=== PATIENT | female | born 1935 | race Caucasian/White ===

== ENCOUNTER → 2016-10-27 | Outpatient (CLI) | payer MEDICARE ==
--- NOTE | 2016-10-27 09:38 | US ---
EXAMINATION TYPE: US carotid duplex BILAT DATE OF EXAM: 10/27/2016 9:26 AM COMPARISON: NONE CLINICAL HISTORY: I65.23 STENOSIS OF CAROTID ARTERY. EXAM MEASUREMENTS: RIGHT: Peak Systolic Velocity (PSV) cm/sec ----- Right CCA: 68.2 ----- Right ICA: 87.2 ----- Right ECA: 79.4 ICA/CCA ratio: 1.3 RIGHT: End Diastole cm/sec ----- Right CCA: 24.1 ----- Right ICA: 32.8 ----- Right ECA: 14.1 LEFT: Peak Systolic Velocity (PSV) cm/sec ----- Left CCA: 54.7 ----- Left ICA: 84.2 ----- Left ECA: 104.3 ICA/CCA ratio: 1.5 LEFT: End Diastole cm/sec ----- Left CCA: 20.6 ----- Left ICA: 19.3 ----- Left ECA: 13.7 VERTEBRALS (direction of flow): Right Vertebral: Antegrade Left Vertebral: Antegrade TECHNOLOGIST IMPRESSION: Mild to moderate plaque with no significant velocity elevations Montanez scale images show mild eccentric hyperechoic shadowing plaque at right carotid bulb. There is le ss pronounced plaque at left carotid bulb. Velocity measurements and ratios remain within normal limi ts in visualized portion of both internal carotid arteries. IMPRESSION: No hemodynamically significant stenosis is seen in either internal carotid artery.
== END | disposition home or self-care (01) ==
LOC: RADUSWWP 09:03
PROVIDERS: ATTEND Internal Medicine
DX: I65.23 Occlusion and stenosis of bilateral carotid arteries (principal); I34.0 Nonrheumatic mitral (valve) insufficiency
CPT/HCPCS: 93880

== ENCOUNTER → 2016-11-17 | Outpatient (CLI) | payer MEDICARE ==
--- NOTE | 2016-11-17 10:23 | BD ---
EXAMINATION TYPE: MG DEXA axial skeleton. DATE OF EXAM: 11/17/2016 10:05 AM COMPARISON: NONE CLINICAL HISTORY: Height: 63.5 IN Weight: 160 LBS FRAX RISK QUESTIONS: Alcohol (3 or more units per day): NO Family History (Parent hip fracture): NO Glucocorticoids (More than 3mos): NO (Ex: prednisone, prednisolone, methylprednisolone, dexamethasone, and hydrocortisone). History of Fracture in Adulthood: YES Secondary Osteoporosis: 1. Type 1 Diabetes: NO 2. Hyperthyroidism: NO 3. Menopause before 45: NO AGE 48 4. Malnutrition: NO 5. Chronic liver disease: NO Rheumatoid Arthritis: NO Current Tobacco Use: NO RISK FACTORS HISTORY OF: Hip Fracture (Right): YES When: AGE 68 Surgery to Hip(right): YES When: AGE 68 Other Fractures since Age 48: YES When: RT HIP AGE 68 Active: MODERATE Diet low in dairy products/other sources of calcium: YES Postmenopausal woman: AGE 48 Lost more than 2 inches in height since high school: YES APPROX 4" MEDICATIONS: Additional Medications: CALCIUM, VIT D, MAGNESIUM, EYE DROPS, BLOOD PRESSURE MEDS, PAIN PILL,GOUT MED EXAM MEASUREMENTS: Bone mineral densitometry was performed using the Vocab System. Bone mineral density as measured about the Lumbar spine is: ----- L1-L4(G/cm2): 1.185 T Score Values are as follows: ----- L2: -1.8 ----- L3: 2.9 ----- L4: 2.7 ----- L1-L4: 0.0 Bone mineral density BASELINE PT HAD RT HIP FX AND SURGERY AGE 68 Bone mineral density about the L hip (g/cm2): 0.609 T Score values are as follows: -----L Neck: -3.1 -----L Intertrochanter: -3.0 Bone mineral density BASELINE IMPRESSION: Osteoporosis (T Score less than -2.5) as noted by T Score values at the There is increased fracture risk and therapy is usually indicated based on age. Re-Screen 1-2 years. NOTE: T-SCORE=SD OF THE YOUNG ADULT MEAN.
--- NOTE | 2016-11-18 14:38 | MM ---
Reason for exam: screening (asymptomatic). History: Patient is postmenopausal. Physical Findings: A clinical breast exam by your physician is recommended on an annual basis and results should be correlated with mammographic findings. MG Screening Mammo w CAD Bilateral CC and MLO view(s) were taken. XCCL view(s) were taken of the left breast. The breast tissue is almost entirely fat. Finding: There are typically benign diffuse/scattered calcifications. There is no discrete abnormality. ASSESSMENT: Benign, BI-RAD 2 RECOMMENDATION: Routine screening mammogram of both breasts in 1 year.
== END | disposition home or self-care (01) ==
LOC: RADMAMWWP 09:12
PROVIDERS: ATTEND Internal Medicine
DX: Z12.31 Encounter for screening mammogram for malignant neoplasm of breast (principal); M81.0 Age-related osteoporosis without current pathological fracture
CPT/HCPCS: 77080; G0202

== ENCOUNTER → 2017-05-11 | Outpatient (CLI) | payer MEDICARE ==
--- NOTE | 2017-05-11 10:59 | ECHOF ---
Referral Reason:I27.2 pulmonary htn MEASUREMENTS -------- HEIGHT: 162.6 cm WEIGHT: 72.6 kg BP: 130/66 IVSd: 1.2 cm (0.6 - 1.1) LVIDd: 3.5 cm (3.9 - 5.3) LVPWd: 1.1 cm (0.6 - 1.1) IVSs: 1.6 cm LVIDs: 2.3 cm LVPWs: 1.8 cm Ao Diam: 3.6 cm (2.0 - 3.7) AV Cusp: 2.6 cm (1.5 - 2.6) LA Diam: 3.0 cm (2.7 - 3.8) MV EXCURSION: 21.518 mm (> 18.000) MV EF SLOPE: 94 mm/s (70 - 150) EPSS: 2.1 cm MV E Jt: 0.81 m/s MV DecT: 239 ms MV A Jt: 0.93 m/s MV E/A Ratio: 0.87 RAP: 5.00 mmHg RVSP: 32.13 mmHg FINDINGS -------- Sinus rhythm. This was a technically good study. There is borderline concentric left ventricular hypertrophy. Overall left ventricular systolic function is normal with, an EF between 55 - 60 %. The right ventricle is normal in size and function. The left atrium is normal in size. The right atrium is normal in size. Aortic valve is trileaflet and is mildly thickened. The mitral valve leaflets are mildly thickened. Mild mitral regurgitation is present. Mild tricuspid regurgitation present. The right ventricular systolic pressure, as measured by Doppler, is 32.13mmHg. Pulmonic valve appears structurally normal. CONCLUSIONS -------- 1. Sinus rhythm. 2. Mild mitral regurgitation is present. 3. Mild tricuspid regurgitation present. 4. The right ventricular systolic pressure, as measured by Doppler, is 32.13mmHg. 5. Pulmonic valve appears structurally normal. 6. This was a technically good study. 7. There is borderline concentric left ventricular hypertrophy. 8. Overall left ventricular systolic function is normal with, an EF between 55 - 60 %. 9. The right ventricle is normal in size and function. 10. The left atrium is normal in size. 11. The right atrium is normal in size. 12. Aortic valve is trileaflet and is mildly thickened. 13. The mitral valve leaflets are mildly thickened. ASSEMBLER 1ST SHIFT: Olinda Hinkle RDCS
== END | disposition home or self-care (01) ==
LOC: RADECHMAIN 08:33
PROVIDERS: ATTEND Internal Medicine
DX: I08.1 Rheumatic disorders of both mitral and tricuspid valves (principal); I27.2 Other secondary pulmonary hypertension
CPT/HCPCS: 93306

== ENCOUNTER 2018-04-06 19:30 | Inpatient (IN) | payer MEDICARE ==
[2018-04-06] MEDS ORDERED: PANTOPRAZOLE 40 MG/10 ML VIAL IVP STA (20:06)
--- NOTE | 2018-04-06 20:09 | ED ---
General Adult HPI - General Chief complaint: GI Bleed Stated complaint: GI Bleed Source: patient Mode of arrival: EMS Limitations: no limitations - History of Present Illness Initial comments: Dictation was produced using [employer] dictation software. please excuse any grammatical, word or spelling errors. Chief Complaint: 82-year-old female past medical history of glaucoma, gout, anemia presents with bright red blood per rectum 1 day. History of Present Illness: Patient states that earlier today she was having a bowel movement she stood up and noted bright red blood per rectum. She states that there was an exquisite amount of bright red blood in the toilet. Patient was concerned and came to the emergency department. Patient denies any abdominal pain. No nausea vomiting. No lightheadedness. Patient otherwise feels well. Denies any history of GI bleed. The ROS documented in this emergency department record has been reviewed and confirmed by me. Those systems with pertinent positive or negative responses have been documented in the HPI. All other systems are other negative and/or noncontributory. - Related Data Home Medications Medication Instructions Recorded Confirmed Allopurinol [Zyloprim] 100 mg PO DAILY 04/06/18 04/07/18 Carvedilol [Coreg] 12.5 mg PO BID 04/06/18 04/07/18 Losartan/Hydrochlorothiazide 1 tab PO DAILY 04/06/18 04/07/18 [Losartan-Hctz 100-12.5 mg Tab] Norman/D3/Mag11/Zinc/Logistics System Engineer/Son/Bor 1 tab PO DAILY 04/07/18 04/07/18 [Caltrate 600+D Plus Tablet] Calcitriol [Rocaltrol] 0.25 mcg PO DAILY 04/07/18 04/07/18 Dorzolamide/Timolol/Pf [Cosopt Pf 1 drop RIGHT EYE BID 04/07/18 04/07/18 2%/5% Ophth Droperette] Latanoprost Ophth [Xalatan 0.005%] 1 drop BOTH EYES HS 04/07/18 04/07/18 Ranitidine HCl [Zantac] 150 mg PO HS 04/07/18 04/07/18 Allergies Allergy/AdvReac Type Severity Reaction Status Date / Time No Known Allergies Allergy Verified 04/06/18 20:28 Review of Systems ROS Statement: Those systems with pertinent positive or pertinent negative responses have been documented in the HPI. ROS Other: All systems not noted in ROS Statement are negative. Past Medical History Past Medical History: Hypertension Additional Past Medical History / Comment(s): glaucoma, gout, anemia History of Any Multi-Drug Resistant Organisms: None Reported Past Surgical History: Joint Replacement, Orthopedic Surgery Past Psychological History: No Psychological Hx Reported Smoking Status: Former smoker Past Alcohol Use History: None Reported Past Drug Use History: None Reported - Past Family History Father Additional Family Medical History / Comment(s): Father in his 60s Mother Additional Family Medical History / Comment(s): Mother in her 90s from old age. Patient has 1 sister with no major medical problems. Patient does not have any brothers or children. General Exam - General Exam Comments Initial Comments: PHYSICAL EXAM: General Impression: Alert and oriented x3, not in acute distress HEENT: Normocephalic atraumatic, extra-ocular movements intact, pupils equal and reactive to light bilaterally, mucous membranes moist. Cardiovascular: Heart regular rate and rhythm, S1&S2 audible, no murmurs, rubs or gallops Chest: Lungs clear to auscultation bilaterally, no rhonchi, no wheeze, no rales Abdomen: Bowel sounds present, abdomen soft, non-tender, non-distended, no organomegaly Musculoskeletal: Pulses present and equal in all extremities, no peripheral edema Motor: Power 5/5 bilaterally, no focal deficits noted Neurological: CN II-XII grossly intact, no focal motor or sensory deficits noted Skin: Intact with no visualized rashes Psych: Normal affect and mood Rectal exam: Rectal skin tag, still guaiac positive for gross blood. Limitations: no limitations Course Vital Signs 04/06/18 04/06/18 19:32 21:21 Temperature 97.7 F Pulse Rate 86 73 Respiratory 20 20 Rate Blood Pressure 162/72 155/65 O2 Sat by Pulse 98 96 Oximetry Medical Decision Making - Medical Decision Making ED course: 82-year-old female with bright red blood per rectum. Vital signs upon arrival shows hypertension 162/72, rest of vital signs within normal limits.Laboratory evaluation obtained. No leukocytosis. Hemoglobin is 9.8. There findings to suggest macrocytic anemia. Platelet count is 49. Coag panel shows findings within acceptable limits. There is no old labs for comparison. Metabolic panel obtained. Elevated renal markers. Glucose 12. Magnesium is 0.9. Stool occult blood is positive. Struck suspicion for lower GI bleed however there is possibility of this upper GI bleed. Patient given Protonix. Patient not bleeding at the moment. No clear indication for platelet transfusion at this time. Magnesium replaced. Patient be admitted with gastroenterology consult. Patient continued to receive fluid resuscitation and magnesium. EKG Interpretation: A 12 lead EKG was obtained. It was interpreted by myself and attending physician. There is a P wave before every QRS complex. Rate is 75. Rhythm is sinus rhythm, MN interval 156, QRS 72, QTC 410. QT is not prolonged. No ST segment depression or elevation. Overall, this EKG is unremarkable - Lab Data Result diagrams: 04/07/18 07:22 04/07/18 07:22 Lab Results 04/06/18 04/06/18 04/06/18 Range/Units 19:46 19:46 19:46 WBC 4.7 (3.8-10.6) k/uL RBC 2.62 L (3.80-5.40) m/uL Hgb 9.8 L (11.4-16.0) gm/dL Hct 29.1 L (34.0-46.0) % MCV 111.1 H (80.0-100.0) fL MCH 37.2 H (25.0-35.0) pg MCHC 33.5 (31.0-37.0) g/dL RDW 15.2 (11.5-15.5) % Plt Count 49 L* (150-450) k/uL Neutrophils % 60 % Lymphocytes % 32 % Monocytes % 5 % Eosinophils % 1 % Basophils % 0 % Neutrophils # 2.8 (1.3-7.7) k/uL Lymphocytes # 1.5 (1.0-4.8) k/uL Monocytes # 0.2 (0-1.0) k/uL Eosinophils # 0.0 (0-0.7) k/uL Basophils # 0.0 (0-0.2) k/uL Polychromasia Present Macrocytosis Marked PT (9.0-12.0) sec INR (<1.2) APTT (22.0-30.0) sec Sodium (137-145) mmol/L Potassium (3.5-5.1) mmol/L Chloride (98-107) mmol/L Carbon Dioxide (22-30) mmol/L Anion Gap mmol/L BUN (7-17) mg/dL Creatinine (0.52-1.04) mg/dL Est GFR (CKD-EPI)AfAm (>60 ml/min/1.73 sqM) Est GFR (CKD-EPI)NonAf (>60 ml/min/1.73 sqM) Glucose (74-99) mg/dL Calcium (8.4-10.2) mg/dL Magnesium (1.6-2.3) mg/dL Total Bilirubin (0.2-1.3) mg/dL AST (14-36) U/L ALT (9-52) U/L Alkaline Phosphatase (38-126) U/L Total Creatine Kinase 51 (30-135) U/L CK-MB (CK-2) 1.4 (0.0-2.4) ng/mL CK-MB (CK-2) Rel Index 2.7 Troponin I <0.012 (0.000-0.034) ng/mL Total Protein (6.3-8.2) g/dL Albumin (3.5-5.0) g/dL Stool Occult Blood Positive H (Negative) Blood Type Blood Type Recheck Antibody Screen Spec Expiration Date 04/06/18 04/06/18 04/06/18 Range/Units 19:46 19:46 19:46 WBC (3.8-10.6) k/uL RBC (3.80-5.40) m/uL Hgb (11.4-16.0) gm/dL Hct (34.0-46.0) % MCV (80.0-100.0) fL MCH (25.0-35.0) pg MCHC (31.0-37.0) g/dL RDW (11.5-15.5) % Plt Count (150-450) k/uL Neutrophils % % Lymphocytes % % Monocytes % % Eosinophils % % Basophils % % Neutrophils # (1.3-7.7) k/uL Lymphocytes # (1.0-4.8) k/uL Monocytes # (0-1.0) k/uL Eosinophils # (0-0.7) k/uL Basophils # (0-0.2) k/uL Polychromasia Macrocytosis PT 10.4 (9.0-12.0) sec INR 1.1 (<1.2) APTT 18.7 L (22.0-30.0) sec Sodium 139 (137-145) mmol/L Potassium 4.0 (3.5-5.1) mmol/L Chloride 106 (98-107) mmol/L Carbon Dioxide 25 (22-30) mmol/L Anion Gap 8 mmol/L BUN 25 H (7-17) mg/dL Creatinine 1.50 H (0.52-1.04) mg/dL Est GFR (CKD-EPI)AfAm 37 (>60 ml/min/1.73 sqM) Est GFR (CKD-EPI)NonAf 32 (>60 ml/min/1.73 sqM) Glucose 102 H (74-99) mg/dL Calcium 9.5 (8.4-10.2) mg/dL Magnesium 0.9 L* (1.6-2.3) mg/dL Total Bilirubin 0.5 (0.2-1.3) mg/dL AST 17 (14-36) U/L ALT 24 (9-52) U/L Alkaline Phosphatase 56 (38-126) U/L Total Creatine Kinase (30-135) U/L CK-MB (CK-2) (0.0-2.4) ng/mL CK-MB (CK-2) Rel Index Troponin I (0.000-0.034) ng/mL Total Protein 6.0 L (6.3-8.2) g/dL Albumin 3.5 (3.5-5.0) g/dL Stool Occult Blood (Negative) Blood Type A Negative Blood Type Recheck No Antibody Screen NEGATIVE Spec Expiration Date 04/09/20182345 Disposition Clinical Impression: GI bleed Disposition: ADMITTED IP TO THIS [facility] Condition: Fair Is patient prescribed a controlled substance at d/c from ED?: No Time of Disposition: 12:30
[2018-04-06 20:28] LABS: Basophils % (A) 0 %; Eosinophils % (A) 1 %; HCT 29.1 % (34.0-46.0); HGB 9.8 gm/dL (11.4-16.0); Lymphocytes # (A) 1.5 k/uL (1.0-4.8); Lymphocytes % (A) 32 %; MCH 37.2 pg (25.0-35.0); MCHC 33.5 g/dL (31.0-37.0); MCV 111.1 fL (80.0-100.0); Macrocytosis Marked; Mean Platelet Volume 10.5; Monocytes # (A) 0.2 k/uL (0-1.0); Monocytes % (A) 5 %; Neutrophils # (A) 2.8 k/uL (1.3-7.7); Neutrophils % (A) 60 %; RBC 2.62 m/uL (3.80-5.40); RDW 15.2 % (11.5-15.5); WBC 4.7 k/uL (3.8-10.6)
[2018-04-06 20:34] LABS: Albumin 3.5 g/dL (3.5-5.0); Calcium 9.5 mg/dL (8.4-10.2); Total Bilirubin 0.5 mg/dL (0.2-1.3)
[2018-04-06 20:44] LABS: Magnesium 0.9 mg/dL (1.6-2.3); Platelet Count 49 k/uL (150-450)
[2018-04-06 20:45] LABS: Polychromasia Present
[2018-04-06 20:50] LABS: Creatine Kinase 51 U/L (30-135)
[2018-04-06 20:51] LABS: INR 1.1 (<1.2); Prothrombin Time 10.4 sec (9.0-12.0)
[2018-04-06 20:54] LABS: Partial Thromboplastin Time 18.7 sec (22.0-30.0)
[2018-04-06 21:02] LABS: Creatine Kinase MB 1.4 ng/mL (0.0-2.4); Troponin I <0.012 ng/mL (0.000-0.034)
[2018-04-06] MEDS: MAGNESIUM SULFATE-D5W PMX 1 GM in DEXTROSE/WATER 1 100ML.BAG IVPB SCH ×2 (21:20→23:27)
[2018-04-06] MEDS ORDERED: NALOXONE 0.4 MG/ML 1 ML VIAL IV PRN (21:23)
--- NOTE | 2018-04-06 21:49 | XR ---
EXAMINATION TYPE: XR abdomen acute w cxr DATE OF EXAM: 04/06/2018 COMPARISON: NONE HISTORY: Abdominal pain. GI bleed. TECHNIQUE: Chest x-ray. Supine and upright abdomen. FINDINGS: Heart is moderately enlarged. There is no heart failure. There is hiatal hernia. Lungs are clear of c onsolidation. There is no sign of intestinal obstruction or pneumoperitoneum. There is lumbar levoscoliosis. Abdomi nal aorta is atheromatous. There is right hip prosthesis. There are are chest leads. IMPRESSION: Nonacute abdomen. Cardiomegaly. No active cardiopulmonary disease.
[2018-04-06] MEDS: CARVEDILOL 12.5 MG TAB PO SCH (23:27)
[2018-04-06] MEDS: DORZOLAMIDE HCL 2% DROPS 10 ML BTL BOTH EYES SCH (23:27)
[2018-04-06] MEDS: SODIUM CHLORIDE 0.9% 1,000 ML IV SCH (23:27)
--- NOTE | 2018-04-07 07:47 | P.CONS ---
History of Present Illness - Reason for Consult Consult date: 04/07/18 Rectal bleeding Requesting physician: Josse Fitzgerald - History of Present Illness 82-year-old female with a past medical history of remote peptic ulcer disease in the 1980s, GI bleed 2006 secondary to perforated duodenal ulcer status post pyloroplasty, anemia B12 deficiency, hypertension, hypertensive cardiovascular disease. Patient presented with painless rectal bleeding that started yesterday. She hasn't been feeling well for over the past week that it was he related. Yesterday she passed one large bowel movement that was bright red burgundy in nature without abdominal pain. Denies coffee-ground hematemesis, melena. Admission hemoglobin 9.8. MCV 111. Platelet 49,000. INR 1.1. BUN 25. Creatinine 1.5. Hemoccult stool positive. No history of thrombocytopenia. No changes in medications. Presently she feels well without abdominal pain. No recurrence of rectal bleeding. Last EGD record was in 2007 no evidence of peptic ulcer disease. Dr. Ba office called last colonoscopy performed 2008 report not available to fax. Review of Systems Constitutional: Denies fever, chills, sweats, weight gain, or loss. HEENT: Negative for migraines, blurred vision or loss, earaches, drainage, tinnitus, oral mucosal lesions, dysphagia, or odynophagia. CARDIAC: Negative for chest pain, arrhythmias, or palpitation. RESPIRATORY: Negative for shortness of breath, hemoptysis, cough, or sputum production. GI: See HPI for pertinent findings. : Negative for hematuria, urgency, frequency, polyuria, or dysuria. GYNc: Denies possibility of . Negative vaginal discharge. MUSCULOSKELETAL: Negative for muscle aches, swelling, arthritis, and arthralgias. NEUROLOGIC: Negative for stroke or TIA. ENDOCRINE: Negative for thyroid problems. SKIN: Negative for rash or itching. PSYCHIATRIC: Negative history for depression and anxiety Past Medical History Past Medical History: Hypertension Additional Past Medical History / Comment(s): glaucoma, gout, anemia History of Any Multi-Drug Resistant Organisms: None Reported Past Surgical History: Joint Replacement, Orthopedic Surgery Past Psychological History: No Psychological Hx Reported Smoking Status: Former smoker Past Alcohol Use History: None Reported Past Drug Use History: None Reported Medications and Allergies Home Medications Medication Instructions Recorded Confirmed Type Allopurinol [Zyloprim] 100 mg PO DAILY 04/06/18 04/07/18 History Carvedilol [Coreg] 12.5 mg PO BID 04/06/18 04/07/18 History Losartan/Hydrochlorothiazide 1 tab PO DAILY 04/06/18 04/07/18 History [Losartan-Hctz 100-12.5 mg Tab] Norman/D3/Mag11/Zinc/Forge Hand/Son/Bor 1 tab PO DAILY 04/07/18 04/07/18 History [Caltrate 600+D Plus Tablet] Calcitriol [Rocaltrol] 0.25 mcg PO DAILY 04/07/18 04/07/18 History Dorzolamide/Timolol/Pf [Cosopt Pf 1 drop RIGHT EYE BID 04/07/18 04/07/18 History 2%/5% Ophth Droperette] Latanoprost Ophth [Xalatan 0.005%] 1 drop BOTH EYES HS 04/07/18 04/07/18 History Ranitidine HCl [Zantac] 150 mg PO HS 04/07/18 04/07/18 History Allergies Allergy/AdvReac Type Severity Reaction Status Date / Time No Known Allergies Allergy Verified 04/06/18 20:28 Physical Exam Vitals: Vital Signs Temp Pulse Pulse Resp BP BP Pulse Ox 04/07/18 06:06 96.4 F L 60 18 119/63 97 04/06/18 23:00 97.7 F 69 17 147/70 100 04/06/18 21:21 73 20 155/65 96 04/06/18 19:32 97.7 F 86 20 162/72 98 Intake and Output 04/06/18 04/07/18 04/07/18 22:59 06:59 14:59 Intake Total 500 Balance 500 Intake: Amount of Fluid Infused ( 500 ml) Other: # Voids 1 Weight 66.088 kg 66.088 kg General appearance: The patient is alert, oriented, in no acute distress. HET: Head is normocephalic and atraumatic. Pupils are equal and reactive. Oropharynx is clear without lesions. Neck: Supple without lymphadenopathy. Trachea midline. Heart: S1 S2. Regular rate and rhythm. Lungs: No crackles or wheezes are heard. Abdomen: Soft, nontender, nondistended with bowel sounds. No peritoneal signs. No palpable organomegaly or masses. Extremities: Normal skin color and turgor. No cyanosis, rash, ulceration, clubbing, or edema. Radial and pedal pulses are 2/4 bilaterally. Neurological: No focal deficits. Strength and sensation are grossly intact. Results CBC & Chem 7: 04/07/18 07:22 04/07/18 07:22 Labs: Abnormal Lab Results - Last 24 Hours (Table) 04/06/18 04/06/18 04/06/18 Range/Units 19:46 19:46 19:46 RBC 2.62 L (3.80-5.40) m/uL Hgb 9.8 L (11.4-16.0) gm/dL Hct 29.1 L (34.0-46.0) % MCV 111.1 H (80.0-100.0) fL MCH 37.2 H (25.0-35.0) pg Plt Count 49 L* (150-450) k/uL APTT (22.0-30.0) sec BUN 25 H (7-17) mg/dL Creatinine 1.50 H (0.52-1.04) mg/dL Glucose 102 H (74-99) mg/dL Magnesium 0.9 L* (1.6-2.3) mg/dL Total Protein 6.0 L (6.3-8.2) g/dL Stool Occult Blood Positive H (Negative) 04/06/18 Range/Units 19:46 RBC (3.80-5.40) m/uL Hgb (11.4-16.0) gm/dL Hct (34.0-46.0) % MCV (80.0-100.0) fL MCH (25.0-35.0) pg Plt Count (150-450) k/uL APTT 18.7 L (22.0-30.0) sec BUN (7-17) mg/dL Creatinine (0.52-1.04) mg/dL Glucose (74-99) mg/dL Magnesium (1.6-2.3) mg/dL Total Protein (6.3-8.2) g/dL Stool Occult Blood (Negative) Assessment and Plan (1) Rectal bleeding Narrative/Plan: Possible colonic diverticular in nature exacerbated by thrombocytopenia. Upper GI source cannot be entirely excluded patient is without epigastric pain hematemesis or melena. History of underlying perforated bleeding peptic duodenal ulcer disease in 2006. Current Visit: Yes Status: Acute Code(s): K62.5 - HEMORRHAGE OF ANUS AND RECTUM SNOMED Code(s): 44122081 (2) Thrombocytopenia Narrative/Plan: Etiology unclear Current Visit: Yes Status: Acute Code(s): D69.6 - THROMBOCYTOPENIA, UNSPECIFIED SNOMED Code(s): 153529955 (3) Anemia Narrative/Plan: Macrocytic anemia. History of B12 deficiency anemia component of acute blood loss Current Visit: Yes Status: Acute Code(s): D64.9 - ANEMIA, UNSPECIFIED SNOMED Code(s): 560596753 Plan: 1. Will allow clear liquids this morning. CBC monitoring; await morning result reevaluate platelet count. Protonix 40 mg daily. Inpatient endoscopy discussed EGD/colonoscopy scheduled tomorrow. Dr. Sharp prefers platelet count to be greater than 50,000 before proceeding with endoscopic exams especially if biopsies and/or polypectomies need to be performed therefore will transfuse platelets tomorrow morning prior to procedures. Will follow closely with you. Thank you for this kind referral and the opportunity to participate in the care of your patient. This consultation was discussed with Dr. Sharp. The impression and plan of care have been directed as dictated.
[2018-04-07 08:30] LABS: Albumin 3.1 g/dL (3.5-5.0); Calcium 9.1 mg/dL (8.4-10.2); Total Bilirubin 0.6 mg/dL (0.2-1.3); Total Protein 5.5 g/dL (6.3-8.2)
[2018-04-07] MEDS: PANTOPRAZOLE 40 MG/10 ML VIAL IVP SCH ×2 (08:45→21:25)
[2018-04-07] MEDS: CARVEDILOL 12.5 MG TAB PO SCH ×2 (08:46→17:38)
[2018-04-07] MEDS: ALLOPURINOL 100 MG TAB PO SCH (08:46)
[2018-04-07] MEDS: DORZOLAMIDE HCL 2% DROPS 10 ML BTL BOTH EYES SCH ×2 (08:46→21:25)
[2018-04-07] MEDS: HYDROCHLOROTHIAZIDE 12.5 MG CAP PO SCH (08:46)
[2018-04-07] MEDS: TIMOLOL 0.5% OPHTH DROPS 5 ML BTL BOTH EYES SCH (08:47)
[2018-04-07] MEDS: LOSARTAN 50 MG TAB PO SCH (08:47)
[2018-04-07 08:59] LABS: Basophils % (A) 0 %; Eosinophils % (A) 1 %; HCT 27.1 % (34.0-46.0); HGB 8.8 gm/dL (11.4-16.0); Lymphocytes # (A) 1.5 k/uL (1.0-4.8); Lymphocytes % (A) 36 %; MCH 36.9 pg (25.0-35.0); MCHC 32.5 g/dL (31.0-37.0); MCV 113.5 fL (80.0-100.0); Macrocytosis Marked; Mean Platelet Volume 8.9; Monocytes # (A) 0.3 k/uL (0-1.0); Monocytes % (A) 6 %; Neutrophils # (A) 2.3 k/uL (1.3-7.7); Neutrophils % (A) 54 %; RBC 2.38 m/uL (3.80-5.40); RDW 15.2 % (11.5-15.5); WBC 4.2 k/uL (3.8-10.6)
[2018-04-07 09:24] LABS: Platelet Count 42 k/uL (150-450)
--- NOTE | 2018-04-07 13:36 | P.HPIM ---
History of Present Illness H&P Date: 04/07/18 Chief Complaint: Bright red rectal bleeding This is an 82-year-old female patient of Dr. Noble. with past history of hypertension, glaucoma, gout, anemia. Patient states the last time she had blood work done with Dr. Noble, he told her that she was anemic. Patient has had colonoscopies in the past with Dr. Ba on several occasions and she denies any problems with those in the past. She states that yesterday she had bright red bleeding in the toilet. She denies any maroon color to her stools. She states she has had this 9010 years ago which time she had vomiting and bloody stool secondary to a perforated ulcer. Patient denies having any abdominal pain but states her abdomen just doesn't feel right. She denies any lightheadedness. Patient came into [facility] emergency center for evaluation. She was found to have a hemoglobin of 9.8, platelet count is currently 42, INR 1.1, creatinine 1.5. Hemoccult blood was positive. Patient has been admitted to the Medr floor and consult with GI has been requested. Magnesium was also low at 0.8 and patient was given 2 g of magnesium sulfate. Review of Systems All systems: negative Constitutional: Denies chills, Denies fatigue, Denies fever, Denies sweats, Denies weakness, Denies weight loss Eyes: denies blurred vision, denies pain Ears, nose, mouth and throat: Denies headache, Denies sore throat, Denies vertigo Cardiovascular: Denies chest pain, Denies decreased exercise tolerance, Denies dyspnea on exertion, Denies edema, Denies leg edema, Denies lightheadedness, Denies shortness of breath, Denies syncope Respiratory: Denies cough, Denies cough with sputum, Denies dyspnea, Denies excessive sputum, Denies hemoptysis, Denies home oxygen, Denies wheezing Gastrointestinal: Reports melena, Denies abdominal pain, Denies diarrhea, Denies nausea, Denies vomiting Genitourinary: Denies dysuria, Denies hematuria Musculoskeletal: Denies frequent falls, Denies myalgias Integumentary: Denies pruritus, Denies rash Neurological: Denies numbness, Denies weakness Psychiatric: Denies anxiety, Denies depression Endocrine: Denies fatigue, Denies weight change Past Medical History Past Medical History: Hypertension Additional Past Medical History / Comment(s): glaucoma, gout, anemia History of Any Multi-Drug Resistant Organisms: None Reported Past Surgical History: Joint Replacement, Orthopedic Surgery Additional Past Surgical History / Comment(s): Partial right hip replacement, bilateral cataract removal and intraocular lens implants Past Psychological History: No Psychological Hx Reported Smoking Status: Former smoker Past Alcohol Use History: None Reported Additional Past Alcohol Use History / Comment(s): Patient was a smoker one pack per day for 40 years ago 10 years ago. She drinks alcohol rarely. She denies any marijuana or street drug use. She does not have CPAP, oxygen or nebulizer at home. Past Drug Use History: None Reported - Past Family History Father Additional Family Medical History / Comment(s): Father in his 60s Mother Additional Family Medical History / Comment(s): Mother in her 90s from old age. Patient has 1 sister with no major medical problems. Patient does not have any brothers or children. Medications and Allergies Home Medications Medication Instructions Recorded Confirmed Type Allopurinol [Zyloprim] 100 mg PO DAILY 04/06/18 04/07/18 History Carvedilol [Coreg] 12.5 mg PO BID 04/06/18 04/07/18 History Losartan/Hydrochlorothiazide 1 tab PO DAILY 04/06/18 04/07/18 History [Losartan-Hctz 100-12.5 mg Tab] Norman/D3/Mag11/Zinc/Rack Pusher/Son/Bor 1 tab PO DAILY 04/07/18 04/07/18 History [Caltrate 600+D Plus Tablet] Calcitriol [Rocaltrol] 0.25 mcg PO DAILY 04/07/18 04/07/18 History Dorzolamide/Timolol/Pf [Cosopt Pf 1 drop RIGHT EYE BID 04/07/18 04/07/18 History 2%/5% Ophth Droperette] Latanoprost Ophth [Xalatan 0.005%] 1 drop BOTH EYES HS 04/07/18 04/07/18 History Ranitidine HCl [Zantac] 150 mg PO HS 04/07/18 04/07/18 History Allergies Allergy/AdvReac Type Severity Reaction Status Date / Time No Known Allergies Allergy Verified 04/06/18 20:28 Physical Exam Vitals: Vital Signs Temp Pulse Pulse Resp BP BP Pulse Ox 04/07/18 06:06 96.4 F L 60 18 119/63 97 04/06/18 23:00 97.7 F 69 17 147/70 100 04/06/18 21:21 73 20 155/65 96 04/06/18 19:32 97.7 F 86 20 162/72 98 Intake and Output 04/06/18 04/07/18 04/07/18 22:59 06:59 14:59 Intake Total 500 Balance 500 Intake: Amount of Fluid Infused ( 500 ml) Other: # Voids 1 Weight 66.088 kg 66.088 kg Gen: This is an 82-year-old female. She is sitting up in bed and appears to be comfortable and in no acute distress. HEENT: Head is atraumatic, normocephalic. Pupils equal, round. Sclerae is anicteric. NECK: Supple. No JVD. No lymphadenopathy. No thyromegaly. LUNGS: Clear to auscultation. No wheezes or rhonchi. No intercostal retractions. HEART: Regular rate and rhythm. No murmur. ABDOMEN: Soft. Bowel sounds are present. No masses. No tenderness. EXTREMITIES: No pedal edema. No calf tenderness. NEUROLOGICAL: Patient is awake, alert and oriented x3. Cranial nerves 2 through 12 are grossly intact. Results CBC & Chem 7: 04/07/18 07:22 04/07/18 07:22 Labs: Abnormal Lab Results - Last 24 Hours (Table) 04/06/18 04/06/18 04/06/18 Range/Units 19:46 19:46 19:46 RBC 2.62 L (3.80-5.40) m/uL Hgb 9.8 L (11.4-16.0) gm/dL Hct 29.1 L (34.0-46.0) % MCV 111.1 H (80.0-100.0) fL MCH 37.2 H (25.0-35.0) pg Plt Count 49 L* (150-450) k/uL APTT (22.0-30.0) sec BUN 25 H (7-17) mg/dL Creatinine 1.50 H (0.52-1.04) mg/dL Glucose 102 H (74-99) mg/dL Magnesium 0.9 L* (1.6-2.3) mg/dL Total Protein 6.0 L (6.3-8.2) g/dL Albumin (3.5-5.0) g/dL Stool Occult Blood Positive H (Negative) 04/06/18 04/07/18 04/07/18 Range/Units 19:46 07:22 07:22 RBC 2.38 L (3.80-5.40) m/uL Hgb 8.8 L (11.4-16.0) gm/dL Hct 27.1 L (34.0-46.0) % MCV 113.5 H (80.0-100.0) fL MCH 36.9 H (25.0-35.0) pg Plt Count 42 L* (150-450) k/uL APTT 18.7 L (22.0-30.0) sec BUN 22 H (7-17) mg/dL Creatinine 1.47 H (0.52-1.04) mg/dL Glucose (74-99) mg/dL Magnesium (1.6-2.3) mg/dL Total Protein 5.5 L (6.3-8.2) g/dL Albumin 3.1 L (3.5-5.0) g/dL Stool Occult Blood (Negative) Thrombosis Risk Factor Assmnt - DVT/VTE Prophylaxis DVT/VTE Prophylaxis: Mechanical Prophylaxis ordered - Choose All That Apply Any of the Below Risk Factors Present?: Yes Each Risk Factor Represents 3 Points: Age 75 years or older Thrombosis Risk Factor Assessment Total Risk Factor Score: 3 Thrombosis Risk Factor Assessment Level: Moderate Risk Assessment and Plan Plan: 1. Acute lower GI bleed. Patient is currently on a clear liquid diet with plan for EGD and colonoscopy tomorrow. Continue Protonix. Monitor CBC daily. 2. Chronic anemia of unclear etiology. Possible component of acute blood loss. Baseline hemoglobin is not known. 3. Thrombocytopenia which is new for patient. Consult with Dr. Oliver. 4. Hypomagnesemia status post replacement. We will check repeat level and follow daily. 5. Glaucoma. Continue eyedrops. 6. Hypertension. Continue Coreg 12.5 mg twice daily, hydrochlorothiazide 12.5 mg daily, losartan 100 mg daily. 7. Gout stable. Continue allopurinol 100 mg daily. 8. Chronic kidney disease stage 3b. Continue IV fluids at 75 mL per hour. 9. DVT prophylaxis. CHANDRIKA hose and SCDs. 10. GI prophylaxis. Protonix. Patient will be admitted to the hospital for a minimum of 2 night stay. Discharge plan: To be determined Impression and plan of care have been directed as dictated by the signing physician. Tarah Santiago nurse practitioner acting as scribe for signing physician.
[2018-04-07] MEDS: SODIUM CHLORIDE 0.9% 1,000 ML IV SCH (14:34)
[2018-04-07 14:50] VITALS: BMI 22.1
[2018-04-07] MEDS ORDERED: PEG 3350-NA SULF,BICARB,CL/KCL 4,000 ML BOTTLE PO ONE (16:00)
[2018-04-07] MEDS ORDERED: LIDOCAINE 1% 20 ML VIAL (10MG/ML) FOR IV START INTRADERMA PRN (17:43)
[2018-04-07] MEDS: LACTATED RINGERS 1,000 ML IV SCH (18:15)
[2018-04-08] MEDS: SODIUM CHLORIDE 0.9% 1,000 ML IV SCH ×2 (06:25→16:35)
[2018-04-08 08:13] LABS: Basophils % (A) 0 %; Eosinophils % (A) 1 %; HCT 23.3 % (34.0-46.0); HGB 7.4 gm/dL (11.4-16.0); Lymphocytes # (A) 1.5 k/uL (1.0-4.8); Lymphocytes % (A) 42 %; MCH 36.4 pg (25.0-35.0); MCHC 31.8 g/dL (31.0-37.0); MCV 114.4 fL (80.0-100.0); Macrocytosis Marked; Mean Platelet Volume 9.7; Monocytes # (A) 0.2 k/uL (0-1.0); Monocytes % (A) 6 %; Neutrophils # (A) 1.7 k/uL (1.3-7.7); Neutrophils % (A) 48 %; RBC 2.03 m/uL (3.80-5.40); RDW 15.2 % (11.5-15.5); WBC 3.7 k/uL (3.8-10.6)
[2018-04-08 08:22] LABS: Platelet Count 40 k/uL (150-450)
[2018-04-08] MEDS: PANTOPRAZOLE 40 MG/10 ML VIAL IVP SCH ×2 (08:24→22:54)
[2018-04-08] MEDS: CARVEDILOL 12.5 MG TAB PO SCH ×2 (08:24→16:40)
[2018-04-08] MEDS: ALLOPURINOL 100 MG TAB PO SCH (08:24)
[2018-04-08] MEDS: DORZOLAMIDE HCL 2% DROPS 10 ML BTL BOTH EYES SCH ×2 (08:24→22:53)
[2018-04-08] MEDS: TIMOLOL 0.5% OPHTH DROPS 5 ML BTL BOTH EYES SCH (08:25)
[2018-04-08 08:33] LABS: Calcium 8.8 mg/dL (8.4-10.2); Magnesium 1.2 mg/dL (1.6-2.3)
[2018-04-08] MEDS: LOSARTAN 50 MG TAB PO SCH (10:22)
[2018-04-08] MEDS: HYDROCHLOROTHIAZIDE 12.5 MG CAP PO SCH (10:23)
[2018-04-08] MEDS ORDERED: PROPOFOL 10 MG/ML 20 ML VIAL IV ONE (14:37)
[2018-04-08] MEDS ORDERED: LIDOCAINE 1% INJ 10MG/ML (20 ML MDV) ONE (14:37)
[2018-04-08] MEDS ORDERED: IV FLUID CONTINUATION 1,000 ML IV ONE (14:40)
--- NOTE | 2018-04-08 15:00 | P.PCN ---
Date of Procedure: 04/08/18 Procedure(s) Performed: Brief history: Patient is a pleasant 82-year-old white female, admitted to the hospital with acute GI bleed. She had couple of episodes of bright red blood per rectum and drop in hemoglobin from 9-7.5 g/dL. She is hence scheduled for an elective upper endoscopy as well as colonoscopy as a part of evaluation of of acute GI bleed. Procedure performed: Esophagogastroduodenoscopy with biopsy Colonoscopy with biopsy Preoperative diagnosis: Acute GI bleed. Anesthesia: MAC Procedure: After informed consent was obtained from the patient was brought into the endoscopy unit and IV sedation was administered by anesthesia under continuous monitoring. Initially upper endoscopy was done. The Olympus GF 160 video endoscope was inserted inserted into the mouth and esophagus intubated without any difficulty and was gradually advanced into the stomach and duodenum and carefully examined. The bulb and second part of the duodenum appeared normal. The scope was then withdrawn into the stomach adequately insufflated with air and upon careful examination there was evidence of distal antrectomy noted. There was mild gastritis noted in the antrum of the stomach and biopsies were done from this area. The body, cardia and fundus appeared normal. The scope was then withdrawn into the esophagus. moderate large size hiatal hernia noted. The GE junction was located at 31 cm to the incisors. It appeared regular with no erythema erosions or ulcerations. Rest of the esophagus appeared normal. Patient tolerated the procedure well. At this time the patient continued to remain sedation. Initial digital rectal examination was normal. Olympus CF 160 video colonoscope was then inserted into the rectum and gradually advanced to the cecum without any difficulty. Careful examination was performed as the scope was gradually being withdrawn. The prep was excellent. The cecum, ascending colon, transverse colon, appeared normal. There was acute colitis with mucosal erythema and friability noted in the descending colon, sigmoid colon extending from 20-50 cm from the anal verge consistent with ischemic colitis and biopsies were done from this area. The rectum appeared normal. Katter sigmoid diverticula seen. Retroflexion was performed in the rectum and no lesions were noted. Patient tolerated the procedure well. Impression: 1. Upper endoscopy revealed moderate to large size hiatal hernia and gastritis of the prepyloric area. 2. Colonoscopy revealed segmental colitis of the sigmoid and descending colon consistent with acute ischemic colitis status post multiple biopsies. Scattered sigmoid diverticulosis Recommendations: Findings of this examination were discussed with the patient. At this time will await the biopsy results. Diet will be advanced as tolerated.
[2018-04-08] MEDS ORDERED: Magnesium Replacement Protocol 1 EACH MISC MISCELLANE PRN (15:05)
--- NOTE | 2018-04-08 15:08 | P.PN ---
Subjective Progress Note Date: 04/08/18 This is an 82-year-old female patient of Dr. Noble. with past history of hypertension, glaucoma, gout, anemia. Patient states the last time she had blood work done with Dr. Noble, he told her that she was anemic. Patient has had colonoscopies in the past with Dr. Ba on several occasions and she denies any problems with those in the past. She states that yesterday she had bright red bleeding in the toilet. She denies any maroon color to her stools. She states she has had this 9-10 years ago which time she had vomiting and bloody stool secondary to a perforated ulcer. Patient denies having any abdominal pain but states her abdomen just doesn't feel right. She denies any lightheadedness. Patient came into [facility] emergency center for evaluation. She was found to have a hemoglobin of 9.8, platelet count is currently 42, INR 1.1, creatinine 1.5. Hemoccult blood was positive. [facility] and consult with GI has been requested. Magnesium was also low at 0.8 and patient was given 2 g of magnesium sulfate. 04/08: Repeat lab work shows pancytopenia with hemoglobin of 7.4, WBC of 3.7 and a platelet count of 40. Consult with Dr. Oliver is pending. BUN is 19 and creatinine 1.47. Repeat magnesium is 1.2 which will be replaced. EGD with biopsy revealed large hiatal hernia, gastritis of the prepyloric area. Colonoscopy revealed segmental colitis of the sigmoid and descending colon consistent with acute ischemic colitis status post multiple biopsies. Scattered sigmoid diverticulosis. Diet is to be advanced as tolerated per Dr. Sharp. Objective - Vital Signs Vital signs: Vital Signs Temp 97.7 F 04/08/18 06:28 Pulse 68 04/08/18 10:22 Resp 17 04/08/18 10:22 BP 101/52 04/08/18 10:22 Pulse Ox 99 04/08/18 10:22 Intake & Output 04/07/18 04/08/18 04/08/18 18:59 06:59 18:59 Weight 66.088 kg Other: # Voids 4 3 # Bowel Movements 1 - Exam Gen: This is an 82-year-old female. She is sitting up in bed and appears to be comfortable and in no acute distress. HEENT: Head is atraumatic, normocephalic. Pupils equal, round. Sclerae is anicteric. NECK: Supple. No JVD. No lymphadenopathy. No thyromegaly. LUNGS: Clear to auscultation. No wheezes or rhonchi. No intercostal retractions. HEART: Regular rate and rhythm. No murmur. ABDOMEN: Soft. Bowel sounds are present. No masses. No tenderness. EXTREMITIES: No pedal edema. No calf tenderness. NEUROLOGICAL: Patient is awake, alert and oriented x3. Cranial nerves 2 through 12 are grossly intact. - Labs CBC & Chem 7: 04/08/18 07:57 04/08/18 07:57 Labs: Abnormal Lab Results - Last 24 Hours (Table) 04/07/18 04/08/18 04/08/18 Range/Units 07:22 07:57 07:57 WBC 3.7 L (3.8-10.6) k/uL RBC 2.38 L 2.03 L (3.80-5.40) m/uL Hgb 8.8 L 7.4 L (11.4-16.0) gm/dL Hct 27.1 L 23.3 L (34.0-46.0) % MCV 113.5 H 114.4 H (80.0-100.0) fL MCH 36.9 H 36.4 H (25.0-35.0) pg Plt Count 42 L* 40 L* (150-450) k/uL Chloride 108 H (98-107) mmol/L BUN 19 H (7-17) mg/dL Creatinine 1.47 H (0.52-1.04) mg/dL Magnesium 1.2 L (1.6-2.3) mg/dL Assessment and Plan Plan: 1. Acute lower GI bleed secondary to acute ischemic colitis and also gastritis. Status post EGD and colonoscopy. Continue Protonix. Monitor CBC daily. 2. Chronic anemia of unclear etiology. Possible component of acute blood loss. Baseline hemoglobin is not known. 3. Thrombocytopenia and now pancytopenic which is new for patient. Consult with Dr. Oliver. 4. Hypomagnesemia status post replacement. We will check repeat level and follow daily. 5. Glaucoma. Continue eyedrops. 6. Hypertension. Continue Coreg 12.5 mg twice daily, hydrochlorothiazide 12.5 mg daily, losartan 100 mg daily. 7. Gout stable. Continue allopurinol 100 mg daily. 8. Chronic kidney disease stage 3b. Continue IV fluids at 75 mL per hour. 9. DVT prophylaxis. CHANDRIKA ybarra and SCDs. 10. GI prophylaxis. Protonix. Discharge plan: Return to [facility] Impression and plan of care have been directed as dictated by the signing physician. Tarah Santiago nurse practitioner acting as scribe for signing physician.
[2018-04-08] MEDS: MAGNESIUM SULFATE-D5W PMX 1 GM in DEXTROSE/WATER 1 100ML.BAG IVPB SCH ×3 (16:35→20:40)
[2018-04-08] MEDS: LACTATED RINGERS 1,000 ML IV SCH (16:49)
--- NOTE | 2018-04-08 17:03 | P.CONS ---
History of Present Illness - Reason for Consult Consult date: 04/08/18 Anemia and thrombocytopenia, macrocytosis - History of Present Illness The patient is an 82-year-old white female, with multiple medical issues. The patient states that she has been anemic since at least the beginning of this year. According to her she was told at that time that she had B12 deficiency. She received B12 injection in 's office, initially and was then placed on B12 orally. The day prior to her admission, she started having passage of bright red blood per rectum. As discontinued, she came into the emergency room. On admission hemoglobin was actually 9.4, platelets of 49. MCV was significantly elevated, and greater than 110. The patient then drop her hemoglobin to 7.4 today with platelets being 40. She underwent a colonoscopy today with platelet transfusion, showing evidence of segmental colitis in the rectosigmoid, suggestive of ischemic colitis. Biopsies were performed. Consult was placed for further evaluation and recommendations. The patient states that in 2007 or , she was admitted with a bleeding ulcer and had surgery. She thinks that she may have had a part of her stomach resected as part of the surgery. Review of Systems Constitutional: Reports poor appetite (Over the last 2 weeks), Reports weakness , Reports weight loss (10 pounds) Eyes: denies blurred vision, denies pain Ears: deny: decreased hearing, ear discharge, earache, tinnitus Ears, nose, mouth and throat: Denies headache, Denies sore throat Cardiovascular: Reports decreased exercise tolerance Respiratory: Denies cough Gastrointestinal: Reports abdominal pain, Reports hematochezia Genitourinary: Reports as per HPI Menstruation: Reports postmenopausal Musculoskeletal: Reports muscle weakness Integumentary: Denies pruritus, Denies rash Neurological: Reports weakness Psychiatric: Denies anxiety, Denies depression Endocrine: Denies fatigue, Denies weight change Hematologic/Lymphatic: Reports as per HPI Past Medical History Past Medical History: Hypertension Additional Past Medical History / Comment(s): glaucoma, gout, anemia History of Any Multi-Drug Resistant Organisms: None Reported Past Surgical History: Joint Replacement, Orthopedic Surgery Additional Past Surgical History / Comment(s): Partial right hip replacement, bilateral cataract removal and intraocular lens implants Past Psychological History: No Psychological Hx Reported Smoking Status: Former smoker Past Alcohol Use History: None Reported Past Drug Use History: None Reported - Past Family History Father Additional Family Medical History / Comment(s): Father in his 60s Mother Additional Family Medical History / Comment(s): Mother in her 90s from old age. Patient has 1 sister with no major medical problems. Patient does not have any brothers or children. Medications and Allergies Home Medications Medication Instructions Recorded Confirmed Type Allopurinol [Zyloprim] 100 mg PO DAILY 04/06/18 04/07/18 History Carvedilol [Coreg] 12.5 mg PO BID 04/06/18 04/07/18 History Losartan/Hydrochlorothiazide 1 tab PO DAILY 04/06/18 04/07/18 History [Losartan-Hctz 100-12.5 mg Tab] Norman/D3/Mag11/Zinc/Bilingual Recruiter/Son/Bor 1 tab PO DAILY 04/07/18 04/07/18 History [Caltrate 600+D Plus Tablet] Calcitriol [Rocaltrol] 0.25 mcg PO DAILY 04/07/18 04/07/18 History Dorzolamide/Timolol/Pf [Cosopt Pf 1 drop RIGHT EYE BID 04/07/18 04/07/18 History 2%/5% Ophth Droperette] Latanoprost Ophth [Xalatan 0.005%] 1 drop BOTH EYES HS 04/07/18 04/07/18 History Ranitidine HCl [Zantac] 150 mg PO HS 04/07/18 04/07/18 History Allergies Allergy/AdvReac Type Severity Reaction Status Date / Time No Known Allergies Allergy Verified 04/06/18 20:28 Physical Exam Vitals: Vital Signs Temp Pulse Pulse Resp BP BP Pulse Ox 04/08/18 16:44 109/52 04/08/18 15:53 73 18 84/46 98 04/08/18 14:36 97.2 F L 68 16 112/60 04/08/18 14:27 97.2 F L 67 16 114/61 94 L 04/08/18 12:16 97.6 F 66 16 111/57 04/08/18 12:15 97.6 F 66 16 111/57 04/08/18 11:46 97.2 F L 68 16 111/59 93 L 04/08/18 11:36 97.5 F L 71 16 118/63 04/08/18 10:22 68 17 101/52 99 04/08/18 06:28 97.7 F 84 17 100/53 98 04/07/18 23:00 79 17 94/46 98 Intake and Output 04/08/18 04/08/18 04/08/18 06:59 14:59 22:59 Intake Total 719 Balance 719 Intake: IV 300 Blood Product 419 Platelet Pheresis Acda 419 Unit [id number] Other: # Voids 3 3 # Bowel Movements 3 - Constitutional General appearance: no acute distress - EENT Eyes: EOMI, PERRLA ENT: hearing grossly normal, normal oropharynx - Neck Neck: no lymphadenopathy Thyroid: bilateral: normal size - Respiratory Respiratory: bilateral: CTA - Cardiovascular Rhythm: regular Heart sounds: normal: S1, S2 - Gastrointestinal General gastrointestinal: normal bowel sounds, soft - Integumentary Integumentary: normal - Neurologic Neurologic: CNII-XII intact - Musculoskeletal Musculoskeletal: generalized weakness, strength equal bilaterally - Psychiatric Psychiatric: A&O x's 3, appropriate affect, intact judgment & insight Results CBC & Chem 7: 04/08/18 07:57 04/08/18 07:57 Labs: Abnormal Lab Results - Last 24 Hours (Table) 04/08/18 04/08/18 Range/Units 07:57 07:57 WBC 3.7 L (3.8-10.6) k/uL RBC 2.03 L (3.80-5.40) m/uL Hgb 7.4 L (11.4-16.0) gm/dL Hct 23.3 L (34.0-46.0) % MCV 114.4 H (80.0-100.0) fL MCH 36.4 H (25.0-35.0) pg Plt Count 40 L* (150-450) k/uL Chloride 108 H (98-107) mmol/L BUN 19 H (7-17) mg/dL Creatinine 1.47 H (0.52-1.04) mg/dL Magnesium 1.2 L (1.6-2.3) mg/dL Abdominal x-ray: report reviewed Assessment and Plan (1) Bicytopenia Narrative/Plan: The patient is presenting with low hemoglobin and platelets. Today actually the white blood cells were also low, though this is likely dilutional from platelet transfusion. The patient does have a history of bleeding per rectum but that is fairly acute. Bleeding due to ischemic colitis is unusual to cause overt anemia. This should not usually affects her platelet counts. In addition her MCV is markedly elevated, which is not consistent with anemia of chronic blood loss. This raises the possibility of a primary marrow disorder. B12 deficiency could also present in the same way. The patient could be at risk of nutritional deficiency from diminished absorption if she has had partial gastrectomy previously. - I will do a full cytopenia workup, including iron studies, B12/folate studies , reticulocyte count, haptoglobin, and protein electrophoresis studies. Further recommendations will be made accordingly. If the patient is found to have a deficiency state, she will likely need parenteral supplementation. - While testing is pending, continue to monitor counts and supplement if needed. Transfuse to keep hemoglobin above 7, and platelets above 10 unless actively bleeding. Current Visit: Yes Status: Acute Code(s): D75.89 - OTHER SPECIFIED DISEASES OF BLOOD AND BLOOD-FORMING ORGANS SNOMED Code(s): 253591077 Plan: Defer to the admitting service for management of her other medical problems
[2018-04-08] MEDS: traMADol 50 MG TAB PO PRN (22:54)
[2018-04-09] MEDS: SODIUM CHLORIDE 0.9% 1,000 ML IV SCH (05:32)
[2018-04-09] MEDS: LOSARTAN 50 MG TAB PO SCH (08:29)
[2018-04-09] MEDS: ALLOPURINOL 100 MG TAB PO SCH (08:30)
[2018-04-09] MEDS: HYDROCHLOROTHIAZIDE 12.5 MG CAP PO SCH (08:30)
[2018-04-09] MEDS: PANTOPRAZOLE 40 MG/10 ML VIAL IVP SCH ×2 (08:30→22:08)
[2018-04-09] MEDS: DORZOLAMIDE HCL 2% DROPS 10 ML BTL BOTH EYES SCH ×2 (08:30→22:06)
[2018-04-09] MEDS: CARVEDILOL 12.5 MG TAB PO SCH ×2 (08:30→17:42)
[2018-04-09] MEDS: TIMOLOL 0.5% OPHTH DROPS 5 ML BTL BOTH EYES SCH (08:30)
[2018-04-09 08:43] LABS: HCT 23.2 % (34.0-46.0); HGB 7.7 gm/dL (11.4-16.0); MCH 38.3 pg (25.0-35.0); MCHC 33.3 g/dL (31.0-37.0); MCV 114.9 fL (80.0-100.0); Macrocytosis Marked; Mean Platelet Volume 8.2; RBC 2.02 m/uL (3.80-5.40); WBC 3.4 k/uL (3.8-10.6)
[2018-04-09 08:49] LABS: Platelet Count 80 k/uL (150-450)
[2018-04-09 09:02] LABS: Potassium 3.5 mmol/L (3.5-5.1)
[2018-04-09 09:14] LABS: Reticulocyte % 1.8 % (0.5-2.0)
[2018-04-09] MEDS ORDERED: DIAZEPAM 5 MG TAB PO STA (09:39)
--- NOTE | 2018-04-09 09:54 | PN ---
PROGRESS NOTE DATE OF SERVICE: 04/09/18 The patient is an 82-year-old pleasant white female admitted to the hospital with acute GI bleed. She underwent an upper endoscopy as well as colonoscopy yesterday which showed evidence of left-sided colitis, possibly ischemic in etiology. The patient is doing better. She is on a regular diet, tolerating well. No abdominal pain. No further episodes of bleeding. PHYSICAL EXAMINATION: Appears comfortable in no apparent distress. Vital signs stable. Blood pressure 107/57. Pulse rate 67. Temperature 98.7. HEENT examination unremarkable. Conjunctivae pink. Sclerae anicteric. Oral cavity no lesions. Neck no jugular venous distention or lymph node enlargement. The chest was clear to auscultation. Heart regular rate and rhythm. Abdomen soft, bowel sounds positive. No organomegaly. Extremities: No pedal edema. SKIN: No rashes. Neurological: alert and oriented times three. No focal deficits. LABS: From today WBC 3.4, hemoglobin 7.7, and platelets are 80,000. BUN and creatinine are within normal limits. IMPRESSION: 1. Acute gastrointestinal bleed status post EGD and colonoscopy yesterday that revealed mild gastritis and left-sided segmental colitis, possibly ischemic in nature, status post biopsy. The patient asymptomatic. The bleeding has resolved. 2. Thrombocytopenia for which hematology following the patient closely. RECOMMENDATIONS: 1. Continue with regular diet. 2. Since the bleeding has resolved, she can be discharged home with outpatient follow up in 2 weeks. Thank you for this consultation. ARUN / SUKHIN: [id number] /
--- NOTE | 2018-04-09 11:57 | P.PN ---
Subjective Progress Note Date: 04/09/18 This is an 82-year-old female patient of Dr. Noble. with past history of hypertension, glaucoma, gout, anemia. Patient states the last time she had blood work done with Dr. Noble, he told her that she was anemic. Patient has had colonoscopies in the past with Dr. Ba on several occasions and she denies any problems with those in the past. She states that yesterday she had bright red bleeding in the toilet. She denies any maroon color to her stools. She states she has had this 9-10 years ago which time she had vomiting and bloody stool secondary to a perforated ulcer. Patient denies having any abdominal pain but states her abdomen just doesn't feel right. She denies any lightheadedness. Patient came into [facility] emergency center for evaluation. She was found to have a hemoglobin of 9.8, platelet count is currently 42, INR 1.1, creatinine 1.5. Hemoccult blood was positive. Patient has been admitted to the [facility] floor and consult with GI has been requested. Magnesium was also low at 0.8 and patient was given 2 g of magnesium sulfate. 04/08: Repeat lab work shows pancytopenia with hemoglobin of 7.4, WBC of 3.7 and a platelet count of 40. Consult with Dr. Oliver is pending. BUN is 19 and creatinine 1.47. Repeat magnesium is 1.2 which will be replaced. EGD with biopsy revealed large hiatal hernia, gastritis of the prepyloric area. Colonoscopy revealed segmental colitis of the sigmoid and descending colon consistent with acute ischemic colitis status post multiple biopsies. Scattered sigmoid diverticulosis. Diet is to be advanced as tolerated per Dr. Sharp. 04/09: Patient underwent EGD that showed mild gastritis, large hiatal hernia. Colonoscopy revealed segmental colitis in the sigmoid and descending colon with possible ischemic colitis with biopsies obtained. Scattered sigmoid diverticulosis. We have ordered an MRA of the abdomen to further assess. Hemoglobin today at 7.7, white count is 3.4 and platelet count 80. Creatinine is 1.36. Patient has been seen by Dr. Oliver. She has been seen by Dr. Webster in the past as she was sent there by Dr. Noble. Patient does state that she is feeling better today. Objective - Vital Signs Vital signs: Vital Signs Temp 97.5 F L 04/09/18 06:28 Pulse 66 04/09/18 06:28 Resp 18 04/09/18 06:28 BP 116/62 04/09/18 06:28 Pulse Ox 94 L 04/09/18 06:28 Intake & Output 04/08/18 04/09/18 04/09/18 18:59 06:59 18:59 Intake Total 719 615 Balance 719 615 Intake: IV 300 Oral 615 Blood Product 419 Platelet Pheresis Acda 419 Unit [id number] Other: Voiding Method Toilet # Voids 3 2 # Bowel Movements 3 - Exam Gen: This is an 82-year-old female. She is sitting up in bed and appears to be comfortable and in no acute distress. HEENT: Head is atraumatic, normocephalic. Pupils equal, round. Sclerae is anicteric. NECK: Supple. No JVD. No lymphadenopathy. No thyromegaly. LUNGS: Clear to auscultation. No wheezes or rhonchi. No intercostal retractions. HEART: Regular rate and rhythm. No murmur. ABDOMEN: Soft. Bowel sounds are present. No masses. No tenderness. EXTREMITIES: No pedal edema. No calf tenderness. NEUROLOGICAL: Patient is awake, alert and oriented x3. Cranial nerves 2 through 12 are grossly intact. - Labs CBC & Chem 7: 04/09/18 08:07 04/09/18 08:07 Labs: Abnormal Lab Results - Last 24 Hours (Table) 04/09/18 04/09/18 Range/Units 08:07 08:07 WBC 3.4 L (3.8-10.6) k/uL RBC 2.02 L (3.80-5.40) m/uL Hgb 7.7 L (11.4-16.0) gm/dL Hct 23.2 L (34.0-46.0) % MCV 114.9 H (80.0-100.0) fL MCH 38.3 H (25.0-35.0) pg Plt Count 80 L D (150-450) k/uL Chloride 108 H (98-107) mmol/L Creatinine 1.36 H (0.52-1.04) mg/dL Assessment and Plan Plan: 1. Acute lower GI bleed secondary to acute ischemic colitis and also gastritis. Status post EGD and colonoscopy. Continue Protonix. Monitor CBC daily. 2. Chronic anemia of unclear etiology. Possible component of acute blood loss. Baseline hemoglobin is not known. 3. Thrombocytopenia and now pancytopenic which is new for patient. Consult with Dr. Oliver. Cytopenia workup in process. 4. Hypomagnesemia status post replacement. We will check repeat level and follow daily. 5. Glaucoma. Continue eyedrops. 6. Hypertension. Continue Coreg 12.5 mg twice daily, hydrochlorothiazide 12.5 mg daily, losartan 100 mg daily. 7. Gout stable. Continue allopurinol 100 mg daily. 8. Chronic kidney disease stage 3b. Continue IV fluids at 75 mL per hour. 9. DVT prophylaxis. CHANDRIKA ybarra and SCDs. 10. GI prophylaxis. Protonix. Discharge plan: Return to [facility] most likely by Wednesday Impression and plan of care have been directed as dictated by the signing physician. Tarah Santiago nurse practitioner acting as scribe for signing physician.
[2018-04-09] MEDS: LACTATED RINGERS 1,000 ML IV SCH (17:42)
[2018-04-09 17:47] LABS: Iron Saturation 33.48 (12.00-45.00); Rheumatoid Factor 13 IU/mL (0-15)
[2018-04-09] MEDS: traMADol 50 MG TAB PO PRN (22:07)
[2018-04-10] MEDS: CARVEDILOL 12.5 MG TAB PO SCH ×2 (08:45→18:12)
[2018-04-10] MEDS: ALLOPURINOL 100 MG TAB PO SCH (08:45)
[2018-04-10] MEDS: LOSARTAN 50 MG TAB PO SCH (08:45)
[2018-04-10] MEDS: PANTOPRAZOLE 40 MG/10 ML VIAL IVP SCH ×2 (08:45→20:51)
[2018-04-10] MEDS: HYDROCHLOROTHIAZIDE 12.5 MG CAP PO SCH (08:46)
[2018-04-10] MEDS: TIMOLOL 0.5% OPHTH DROPS 5 ML BTL BOTH EYES SCH (08:46)
[2018-04-10] MEDS: DORZOLAMIDE HCL 2% DROPS 10 ML BTL BOTH EYES SCH ×2 (08:47→20:51)
[2018-04-10 09:19] LABS: HCT 24.3 % (34.0-46.0); HGB 7.9 gm/dL (11.4-16.0); MCH 36.9 pg (25.0-35.0); MCHC 32.6 g/dL (31.0-37.0); MCV 113.1 fL (80.0-100.0); Macrocytosis Marked; Mean Platelet Volume 8.8; RBC 2.15 m/uL (3.80-5.40); RDW 14.7 % (11.5-15.5); WBC 2.6 k/uL (3.8-10.6)
[2018-04-10 09:20] LABS: Platelet Count 63 k/uL (150-450)
[2018-04-10 09:42] LABS: Calcium 9.2 mg/dL (8.4-10.2); Potassium 3.8 mmol/L (3.5-5.1)
--- NOTE | 2018-04-10 10:28 | P.PN ---
Subjective Progress Note Date: 04/10/18 This is an 82-year-old female patient of Dr. Noble. with past history of hypertension, glaucoma, gout, anemia. Patient states the last time she had blood work done with Dr. Noble, he told her that she was anemic. Patient has had colonoscopies in the past with Dr. Ba on several occasions and she denies any problems with those in the past. She states that yesterday she had bright red bleeding in the toilet. She denies any maroon color to her stools. She states she has had this 9-10 years ago which time she had vomiting and bloody stool secondary to a perforated ulcer. Patient denies having any abdominal pain but states her abdomen just doesn't feel right. She denies any lightheadedness. Patient came into [facility] emergency center for evaluation. She was found to have a hemoglobin of 9.8, platelet count is currently 42, INR 1.1, creatinine 1.5. Hemoccult blood was positive. Patient has been admitted to the [facility] floor and consult with GI has been requested. Magnesium was also low at 0.8 and patient was given 2 g of magnesium sulfate. 04/08: Repeat lab work shows pancytopenia with hemoglobin of 7.4, WBC of 3.7 and a platelet count of 40. Consult with Dr. Oliver is pending. BUN is 19 and creatinine 1.47. Repeat magnesium is 1.2 which will be replaced. EGD with biopsy revealed large hiatal hernia, gastritis of the prepyloric area. Colonoscopy revealed segmental colitis of the sigmoid and descending colon consistent with acute ischemic colitis status post multiple biopsies. Scattered sigmoid diverticulosis. Diet is to be advanced as tolerated per Dr. Sharp. 04/09: Patient underwent EGD that showed mild gastritis, large hiatal hernia. Colonoscopy revealed segmental colitis in the sigmoid and descending colon with possible ischemic colitis with biopsies obtained. Scattered sigmoid diverticulosis. We have ordered an MRA of the abdomen to further assess. Hemoglobin today at 7.7, white count is 3.4 and platelet count 80. Creatinine is 1.36. Patient has been seen by Dr. Oliver. She has been seen by Dr. Webster in the past as she was sent there by Dr. Noble. Patient does state that she is feeling better today. 04/10: Patient states that her appetite is okay. She ate breakfast and lunch yesterday but not dinner. She denies having any nausea. Hemoglobin today is at 7.9, white count 2.6 and platelet count 63. Creatinine is 1.30. Dr. Oliver he is ordered extensive lab work. We're waiting for MRA which possibly will happen tomorrow. Anticipate discharge possibly by tomorrow. Objective - Vital Signs Vital signs: Vital Signs Temp 96.8 F L 04/10/18 06:13 Pulse 61 04/10/18 06:13 Resp 19 04/10/18 06:13 BP 128/69 04/10/18 06:13 Pulse Ox 94 L 04/10/18 06:13 Intake & Output 04/09/18 04/10/18 04/10/18 18:59 06:59 18:59 Other: Voiding Method Bedside Commode # Voids 3 2 # Bowel Movements 1 - Exam Gen: This is an 82-year-old female. She is sitting up in bed and appears to be comfortable and in no acute distress. HEENT: Head is atraumatic, normocephalic. Pupils equal, round. Sclerae is anicteric. NECK: Supple. No JVD. No lymphadenopathy. No thyromegaly. LUNGS: Clear to auscultation. No wheezes or rhonchi. No intercostal retractions. HEART: Regular rate and rhythm. No murmur. ABDOMEN: Soft. Bowel sounds are present. No masses. No tenderness. EXTREMITIES: No pedal edema. No calf tenderness. NEUROLOGICAL: Patient is awake, alert and oriented x3. Cranial nerves 2 through 12 are grossly intact. - Labs CBC & Chem 7: 04/10/18 08:28 04/10/18 08:28 Labs: Abnormal Lab Results - Last 24 Hours (Table) 04/09/18 04/09/18 Range/Units 08:07 08:07 WBC 3.4 L (3.8-10.6) k/uL RBC 2.02 L (3.80-5.40) m/uL Hgb 7.7 L (11.4-16.0) gm/dL Hct 23.2 L (34.0-46.0) % MCV 114.9 H (80.0-100.0) fL MCH 38.3 H (25.0-35.0) pg Plt Count 80 L D (150-450) k/uL Chloride 108 H (98-107) mmol/L Creatinine 1.36 H (0.52-1.04) mg/dL Assessment and Plan Plan: 1. Acute lower GI bleed secondary to acute ischemic colitis and also gastritis. Status post EGD and colonoscopy. Continue Protonix. Monitor CBC daily. MRA has been ordered of the abdomen. 2. Chronic anemia of unclear etiology. Possible component of acute blood loss. Baseline hemoglobin is not known. 3. Thrombocytopenia and now pancytopenic which is new for patient. Consult with Dr. Oliver. Cytopenia workup in process. 4. Hypomagnesemia status post replacement. We will check repeat level and follow daily. 5. Glaucoma. Continue eyedrops. 6. Hypertension. Continue Coreg 12.5 mg twice daily, hydrochlorothiazide 12.5 mg daily, losartan 100 mg daily. 7. Gout stable. Continue allopurinol 100 mg daily. 8. Chronic kidney disease stage 3b. Continue IV fluids at 75 mL per hour. 9. DVT prophylaxis. CHANDRIKA ybarra and SCDs. 10. GI prophylaxis. Protonix. Discharge plan: Return to [facility] most likely by Wednesday Impression and plan of care have been directed as dictated by the signing physician. Tarah Santiago nurse practitioner acting as scribe for signing physician.
--- NOTE | 2018-04-10 13:10 | PN ---
PROGRESS NOTE DATE OF SERVICE: April 10, 2018 Patient is an 82-year-old pleasant white female admitted to the hospital with lower GI bleed. She had an EGD colonoscopy done by me 2 days ago that showed evidence of segmental colitis involving the left colon, possibly ischemic in nature. Biopsies are still pending. Patient is doing better today. She is on a regular diet, tolerating well. No abdominal pain. She had 2 bowel movements this morning with no bleeding. She also has severe thrombocytopenia for which she was seen by Dr. Oliver. Repeat platelet count today was 70,000. PHYSICAL EXAMINATION: Appears comfortable in no apparent distress. VITAL SIGNS: Stable. Blood pressure is 96/47, pulse is 63, temperature 97.9. HEENT examination unremarkable. Conjunctivae pink. Sclerae anicteric. Oral cavity no lesions. Neck no jugular venous distention or lymph node enlargement. Chest was clear to auscultation. HEART: Regular rate and rhythm. ABDOMEN: Soft, nontender, nondistended. Bowel sounds are positive. No organomegaly. Extremities: No pedal edema. Skin no rashes. NEUROLOGIC: Alert and oriented x3. No focal deficits. LABS: From today WBC 2.6, hemoglobin 7.9, platelets are . BUN and creatinine are normal. IMPRESSION: 1. Acute lower gastrointestinal bleed, status post colonoscopy 2 days ago. Possible ischemic colitis. Labs are still pending. No further bleeding. 2. Thrombocytopenia for which Dr. Oliver following the patient closely. RECOMMENDATIONS: 1. Await biopsy results. 2. CBC tomorrow. 3. Advance diet as tolerated. 4. We will sign off. The patient can follow up in office in 2 weeks following discharge from the hospital. Thank you for this consultation. MMMADELINE / IJN: [id number] /
[2018-04-10] MEDS: LACTATED RINGERS 1,000 ML IV SCH (18:12)
[2018-04-10] MEDS: traMADol 50 MG TAB PO PRN (20:56)
[2018-04-11 08:56] LABS: HGB 8.1 gm/dL (11.4-16.0); MCH 37.8 pg (25.0-35.0); MCHC 33.8 g/dL (31.0-37.0); Macrocytosis Marked; Mean Platelet Volume 9.2; RBC 2.15 m/uL (3.80-5.40); RDW 14.9 % (11.5-15.5); WBC 2.8 k/uL (3.8-10.6)
[2018-04-11 08:57] LABS: Platelet Count 57 k/uL (150-450)
[2018-04-11] MEDS: ALLOPURINOL 100 MG TAB PO SCH (09:41)
[2018-04-11] MEDS: CARVEDILOL 12.5 MG TAB PO SCH ×2 (09:41→16:54)
[2018-04-11] MEDS: LOSARTAN 50 MG TAB PO SCH (09:41)
[2018-04-11] MEDS: HYDROCHLOROTHIAZIDE 12.5 MG CAP PO SCH (09:43)
[2018-04-11] MEDS: PANTOPRAZOLE 40 MG/10 ML VIAL IVP SCH ×2 (09:43→21:33)
[2018-04-11] MEDS: DORZOLAMIDE HCL 2% DROPS 10 ML BTL BOTH EYES SCH ×2 (09:43→21:33)
[2018-04-11] MEDS: TIMOLOL 0.5% OPHTH DROPS 5 ML BTL BOTH EYES SCH (09:43)
--- NOTE | 2018-04-11 14:07 | P.PN ---
Subjective Progress Note Date: 04/11/18 This is an 82-year-old female patient of Dr. Noble. with past history of hypertension, glaucoma, gout, anemia. Patient states the last time she had blood work done with Dr. Noble, he told her that she was anemic. Patient has had colonoscopies in the past with Dr. Ba on several occasions and she denies any problems with those in the past. She states that yesterday she had bright red bleeding in the toilet. She denies any maroon color to her stools. She states she has had this 9-10 years ago which time she had vomiting and bloody stool secondary to a perforated ulcer. Patient denies having any abdominal pain but states her abdomen just doesn't feel right. She denies any lightheadedness. Patient came into [facility] emergency center for evaluation. She was found to have a hemoglobin of 9.8, platelet count is currently 42, INR 1.1, creatinine 1.5. Hemoccult blood was positive. Patient has been admitted to the [facility] floor and consult with GI has been requested. Magnesium was also low at 0.8 and patient was given 2 g of magnesium sulfate. 04/08: Repeat lab work shows pancytopenia with hemoglobin of 7.4, WBC of 3.7 and a platelet count of 40. Consult with Dr. Oliver is pending. BUN is 19 and creatinine 1.47. Repeat magnesium is 1.2 which will be replaced. EGD with biopsy revealed large hiatal hernia, gastritis of the prepyloric area. Colonoscopy revealed segmental colitis of the sigmoid and descending colon consistent with acute ischemic colitis status post multiple biopsies. Scattered sigmoid diverticulosis. Diet is to be advanced as tolerated per Dr. Sharp. 04/09: Patient underwent EGD that showed mild gastritis, large hiatal hernia. Colonoscopy revealed segmental colitis in the sigmoid and descending colon with possible ischemic colitis with biopsies obtained. Scattered sigmoid diverticulosis. We have ordered an MRA of the abdomen to further assess. Hemoglobin today at 7.7, white count is 3.4 and platelet count 80. Creatinine is 1.36. Patient has been seen by Dr. Oliver. She has been seen by Dr. Webster in the past as she was sent there by Dr. Noble. Patient does state that she is feeling better today. 04/10: Patient states that her appetite is okay. She ate breakfast and lunch yesterday but not dinner. She denies having any nausea. Hemoglobin today is at 7.9, white count 2.6 and platelet count 63. Creatinine is 1.30. Dr. Oliver he is ordered extensive lab work. We're waiting for MRA which possibly will happen tomorrow. Anticipate discharge possibly by tomorrow. 04/11: Patient continues to be followed by oncology. Repeat hemoglobin is 8.1, white count 2.8 and platelet count 57. We are planning to cancel MRA of the abdomen as it will not be a good study as patient does not have contrast and contrast will not be given because of her renal failure. Patient will be monitored overnight and plan for discharge tomorrow. Objective - Vital Signs Vital signs: Vital Signs Temp 97.5 F L 04/11/18 06:41 Pulse 62 04/11/18 06:41 Resp 18 04/11/18 06:41 BP 119/72 04/11/18 06:41 Pulse Ox 97 04/11/18 06:41 Intake & Output 04/10/18 04/11/18 04/11/18 18:59 06:59 18:59 Intake Total 450 Balance 450 Weight 66.088 kg Intake: Oral 450 Other: Voiding Method Bedside Commode # Voids 2 3 # Bowel Movements 0 0 - Exam Gen: This is an 82-year-old female. She is sitting up in bed and appears to be comfortable and in no acute distress. HEENT: Head is atraumatic, normocephalic. Pupils equal, round. Sclerae is anicteric. NECK: Supple. No JVD. No lymphadenopathy. No thyromegaly. LUNGS: Clear to auscultation. No wheezes or rhonchi. No intercostal retractions. HEART: Regular rate and rhythm. No murmur. ABDOMEN: Soft. Bowel sounds are present. No masses. No tenderness. EXTREMITIES: No pedal edema. No calf tenderness. NEUROLOGICAL: Patient is awake, alert and oriented x3. Cranial nerves 2 through 12 are grossly intact. - Labs CBC & Chem 7: 04/11/18 07:18 04/10/18 08:28 Labs: Abnormal Lab Results - Last 24 Hours (Table) 07/21/18 07/21/18 07/23/18 Range/Units 08:07 08:07 07:18 WBC 2.8 L (3.8-10.6) k/uL RBC 2.15 L (3.80-5.40) m/uL Hgb 8.1 L (11.4-16.0) gm/dL Hct 24.0 L (34.0-46.0) % MCV 112.0 H (80.0-100.0) fL MCH 37.8 H (25.0-35.0) pg Plt Count 57 L (150-450) k/uL Haptoglobin 213.0 H (31.2-198.0) mg/dL TIBC 224 L (228-460) ug/dL Vitamin B12 1648.0 H (200.0-944.0) pg/mL RBC Folate 1,844 H (280 - 791) ng/mL Free [place] LC, Quant 9.25 H (0.33-1.94) mg/dL Assessment and Plan Plan: 1. Acute lower GI bleed secondary to acute ischemic colitis and also gastritis. Status post EGD and colonoscopy. Continue Protonix. Monitor CBC daily. MRA canceled. 2. Chronic anemia of unclear etiology. Possible component of acute blood loss. Baseline hemoglobin is not known. 3. Thrombocytopenia and now pancytopenic which is new for patient. Consult with Dr. Oliver. Cytopenia workup in process. 4. Hypomagnesemia status post replacement. We will check repeat level and follow daily. 5. Glaucoma. Continue eyedrops. 6. Hypertension. Continue Coreg 12.5 mg twice daily, hydrochlorothiazide 12.5 mg daily, losartan 100 mg daily. 7. Gout stable. Continue allopurinol 100 mg daily. 8. Chronic kidney disease stage 3b. Continue IV fluids at 75 mL per hour. 9. DVT prophylaxis. CHANDRIKA hose and SCDs. 10. GI prophylaxis. Protonix. Discharge plan: Return to [facility] most likely by Wednesday Impression and plan of care have been directed as dictated by the signing physician. Tarah Santiago nurse practitioner acting as scribe for signing physician.
[2018-04-11 14:48] LABS: Albumin 3.04 g/dL (3.80-4.90); Gamma Globulin 0.92 g/dL (0.70-1.50); Protein, Total 5.5 g/dL (6.2-8.2)
[2018-04-11] MEDS: LACTATED RINGERS 1,000 ML IV SCH (16:52)
--- NOTE | 2018-04-11 16:56 | P.PN ---
Subjective Progress Note Date: 04/11/18 Principal diagnosis: BRBPR, pancytopenia Pt seen in f/u, she states she is eating and drinking fairly well, no nausea or vomiting, she denies any bleeding, swelling or new/unusual pain Objective - Vital Signs Vital signs: Vital Signs Temp 98.4 F 04/11/18 14:54 Pulse 67 04/11/18 14:54 Resp 17 04/11/18 14:54 BP 117/58 04/11/18 14:54 Pulse Ox 94 L 04/11/18 14:54 Intake & Output 04/10/18 04/11/18 04/11/18 18:59 06:59 18:59 Intake Total 450 200 Balance 450 200 Weight 66.088 kg 66.088 kg Intake: Oral 450 200 Other: Voiding Method Bedside Commode # Voids 2 3 3 # Bowel Movements 0 0 0 - Constitutional General appearance: Present: cooperative, no acute distress, thin - EENT Eyes: Present: anicteric sclerae - Respiratory Respiratory: bilateral: CTA - Cardiovascular Heart sounds: normal: S1, S2 - Gastrointestinal General gastrointestinal: Present: normal bowel sounds, soft - Psychiatric Psychiatric: Present: A&O x's 3, appropriate affect, intact judgment & insight - Labs CBC & Chem 7: 04/11/18 07:18 04/10/18 08:28 Labs: Abnormal Lab Results - Last 24 Hours (Table) 04/09/18 04/09/18 04/11/18 Range/Units 08:07 08:07 07:18 WBC 2.8 L (3.8-10.6) k/uL RBC 2.15 L (3.80-5.40) m/uL Hgb 8.1 L (11.4-16.0) gm/dL Hct 24.0 L (34.0-46.0) % MCV 112.0 H (80.0-100.0) fL MCH 37.8 H (25.0-35.0) pg Plt Count 57 L (150-450) k/uL Haptoglobin 213.0 H (31.2-198.0) mg/dL TIBC 224 L (228-460) ug/dL Total Protein (PEP) 5.5 L (6.2-8.2) g/dL Albumin (PEP) 3.04 L (3.80-4.90) g/dL Beta Globulins 0.52 L (0.60-1.30) g/dL Vitamin B12 1648.0 H (200.0-944.0) pg/mL RBC Folate 1,844 H (280 - 791) ng/mL Free [place] LC, Quant 9.25 H (0.33-1.94) mg/dL Assessment and Plan (1) Pancytopenia Narrative/Plan: Pt was seen back in Sep [address] Webster for small amt of monoclonal protein in her blood, her CBC was normal other then mild anemia. All of pt counts are low so, pending SPEP/immunofixation will be compared to previous findings. While pt counts are they are in a reasonably safe range, no transfusions or supportive meds at this time. No nutritional deficiencies noted. Will cont to monitor CBC while inpatient, will report lab findings once work up complete, further recommendations to follow. Current Visit: Yes Status: Acute Priority: Medium Code(s): D61.818 - OTHER PANCYTOPENIA SNOMED Code(s): 461523716
[2018-04-11] MEDS: traMADol 50 MG TAB PO PRN (21:35)
[2018-04-12 07:16] VITALS: BP 115/66; PULSE 64; RESP 18; TEMP 97.9
[2018-04-12] MEDS: CARVEDILOL 12.5 MG TAB PO SCH (08:43)
[2018-04-12] MEDS: ALLOPURINOL 100 MG TAB PO SCH (08:43)
[2018-04-12] MEDS: HYDROCHLOROTHIAZIDE 12.5 MG CAP PO SCH (08:43)
[2018-04-12] MEDS: LOSARTAN 50 MG TAB PO SCH (08:43)
[2018-04-12] MEDS: DORZOLAMIDE HCL 2% DROPS 10 ML BTL BOTH EYES SCH (08:43)
[2018-04-12] MEDS: TIMOLOL 0.5% OPHTH DROPS 5 ML BTL BOTH EYES SCH (08:44)
[2018-04-12] MEDS: PANTOPRAZOLE 40 MG/10 ML VIAL IVP SCH (08:44)
[2018-04-12] MEDS: traMADol 50 MG TAB PO PRN (08:47)
[2018-04-12 11:12] LABS: Methylmalonic Acid 0.24 umol/L (<0.40)
--- NOTE | 2018-04-12 12:13 | P.DS ---
Providers Date of admission: 04/06/18 21:23 Expected date of discharge: 04/12/18 Attending physician: Josse Fitzgerald Consults: 04/06/18 21:28 Consult Physician Routine Consulting Provider: Brandon Hameed Consult Reason/Comments: Gi bleed Do you want consulting provider notified?: Yes, Notify in am 04/07/18 13:31 Consult Physician Routine Consulting Provider: Juan Antonio Oliver Consult Reason/Comments: Thrombocytopenia Do you want consulting provider notified?: Yes Primary care physician: Golden Noble [facility] Course: This is an 82-year-old female patient of Dr. Noble. with past history of hypertension, glaucoma, gout, anemia. Patient states the last time she had blood work done with Dr. Noble, he told her that she was anemic. Patient has had colonoscopies in the past with Dr. Ba on several occasions and she denies any problems with those in the past. She states that yesterday she had bright red bleeding in the toilet. She denies any maroon color to her stools. She states she has had this 9-10 years ago which time she had vomiting and bloody stool secondary to a perforated ulcer. Patient denies having any abdominal pain but states her abdomen just doesn't feel right. She denies any lightheadedness. Patient came into [facility] for evaluation. She was found to have a hemoglobin of 9.8, platelet count is currently 42, INR 1.1, creatinine 1.5. Hemoccult blood was positive. Patient has been admitted to the [facility] floor and consult with GI has been requested. Magnesium was also low at 0.8 and patient was given 2 g of magnesium sulfate. 04/08: Repeat lab work shows pancytopenia with hemoglobin of 7.4, WBC of 3.7 and a platelet count of 40. Consult with Dr. Oliver is pending. BUN is 19 and creatinine 1.47. Repeat magnesium is 1.2 which will be replaced. EGD with biopsy revealed large hiatal hernia, gastritis of the prepyloric area. Colonoscopy revealed segmental colitis of the sigmoid and descending colon consistent with acute ischemic colitis status post multiple biopsies. Scattered sigmoid diverticulosis. Diet is to be advanced as tolerated per Dr. Sharp. 04/09: Patient underwent EGD that showed mild gastritis, large hiatal hernia. Colonoscopy revealed segmental colitis in the sigmoid and descending colon with possible ischemic colitis with biopsies obtained. Scattered sigmoid diverticulosis. We have ordered an MRA of the abdomen to further assess. Hemoglobin today at 7.7, white count is 3.4 and platelet count 80. Creatinine is 1.36. Patient has been seen by Dr. Oliver. She has been seen by Dr. Fontanez in the past as she was sent there by Dr. Noble. Patient does state that she is feeling better today. 04/10: Patient states that her appetite is okay. She ate breakfast and lunch yesterday but not dinner. She denies having any nausea. Hemoglobin today is at 7.9, white count 2.6 and platelet count 63. Creatinine is 1.30. Dr. Oliver he is ordered extensive lab work. We're waiting for MRA which possibly will happen tomorrow. Anticipate discharge possibly by tomorrow. 04/11: Patient continues to be followed by oncology. Repeat hemoglobin is 8.1, white count 2.8 and platelet count 57. We are planning to cancel MRA of the abdomen as it will not be a good study as patient does not have contrast and contrast will not be given because of her renal failure. Patient will be monitored overnight and plan for discharge tomorrow. 04/12: Vision is been followed by oncology with plan for outpatient bone marrow aspiration. Patient has had no further bleeding. Hemoglobin is stable. Patient will be discharged home today in stable condition. Discharge diagnoses: 1. Acute lower GI bleed secondary to acute ischemic colitis and also gastritis. 2. Chronic anemia most likely secondary to myelodysplasia 3. 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 Hypomagnesemia status post replacement. 5. Glaucoma. 6. Hypertension. 7. Gout stable. 8. Chronic kidney disease stage 3b. Discharge plan: Return to [facility] Impression and plan of care have been directed as dictated by the signing physician. Tarah Santiago nurse practitioner acting as scribe for signing physician. Patient Condition at Discharge: Good Plan - Discharge Summary Discharge Rx Participant: No New Discharge Prescriptions: Continue Losartan/Hydrochlorothiazide [Losartan-Hctz 100-12.5 mg Tab] 1 tab PO DAILY Allopurinol [Zyloprim] 100 mg PO DAILY Carvedilol [Coreg] 12.5 mg PO BID Dorzolamide/Timolol/Pf [Cosopt Pf 2%/5% Ophth Droperette] 1 drop RIGHT EYE BID Ranitidine HCl [Zantac] 150 mg PO HS Latanoprost Ophth [Xalatan 0.005%] 1 drop BOTH EYES HS Calcitriol [Rocaltrol] 0.25 mcg PO DAILY Norman/D3/Mag11/Zinc/Bundle Collector/Son/Bor [Caltrate 600+D Plus Tablet] 1 tab PO DAILY Discharge Medication List Allopurinol [Zyloprim] 100 mg PO DAILY 04/06/18 [History] Carvedilol [Coreg] 12.5 mg PO BID 04/06/18 [History] Losartan/Hydrochlorothiazide [Losartan-Hctz 100-12.5 mg Tab] 1 tab PO DAILY [History] Norman/D3/Mag11/Zinc/Bundle Collector/Son/Bor [Caltrate 600+D Plus Tablet] 1 tab PO DAILY 04/07 [History] Calcitriol [Rocaltrol] 0.25 mcg PO DAILY 04/07/18 [History] Dorzolamide/Timolol/Pf [Cosopt Pf 2%/5% Ophth Droperette] 1 drop RIGHT EYE BID 04/07/18 [History] Latanoprost Ophth [Xalatan 0.005%] 1 drop BOTH EYES HS 04/07/18 [History] Ranitidine HCl [Zantac] 150 mg PO HS 04/07/18 [History] Follow up Appointment(s)/Referral(s): Juan Antonio Oliver MD [STAFF PHYSICIAN] - 04/29/18 3:30 pm (WITH DR. FONTANEZ, OFFICE WILL FOLLOW UP WITH BIOPSY) Golden Noble MD [Primary Care Provider] - 04/19/18 9:15 am (WITH NURSE PRACTIONER JENNIFER NOEL) Rosanna Sharp MD [STAFF PHYSICIAN] - 04/21/18 4:45 pm Patient Instructions/Handouts: Anemia (DC), Thrombocytopenia (DC) Activity/Diet/Wound Care/Special Instructions: ACTIVITY TOLERATED DR. FONTANEZ'S OFFICE WILL CONTACT YOU TO SCHEDULE BONE BIOPSY Discharge Disposition: HOME SELF-CARE
--- NOTE | 2018-04-12 17:35 | P.PN ---
Subjective Progress Note Date: 04/12/18 Principal diagnosis: BRBPR, pancytopenia Pt seen in f/u, she feels ok, eating and drinking, no bleeding, she is ambulating. Objective - Vital Signs Vital signs: Vital Signs Temp 97.9 F 04/12/18 07:00 Pulse 64 04/12/18 07:00 Resp 18 04/12/18 07:00 BP 115/66 04/12/18 07:00 Pulse Ox 94 L 04/12/18 07:00 Intake & Output 04/11/18 04/12/18 04/12/18 18:59 06:59 18:59 Intake Total 200 475 Balance 200 475 Weight 66.088 kg Intake: Oral 200 475 Other: # Voids 3 2 # Bowel Movements 0 - Constitutional General appearance: Present: cooperative, no acute distress, thin - EENT Eyes: Present: anicteric sclerae - Respiratory Respiratory: bilateral: CTA - Cardiovascular Heart sounds: normal: S1, S2 - Gastrointestinal General gastrointestinal: Present: normal bowel sounds, soft - Integumentary Integumentary: Present: pale - Neurologic Neurologic: Present: CNII-XII intact - Musculoskeletal Musculoskeletal: Present: generalized weakness, strength equal bilaterally - Psychiatric Psychiatric: Present: A&O x's 3, appropriate affect, intact judgment & insight - Labs CBC & Chem 7: 04/11/18 07:18 04/10/18 08:28 Labs: Abnormal Lab Results - Last 24 Hours (Table) 04/09/18 Range/Units 08:07 Total Protein (PEP) 5.5 L (6.2-8.2) g/dL Albumin (PEP) 3.04 L (3.80-4.90) g/dL Beta Globulins 0.52 L (0.60-1.30) g/dL Assessment and Plan (1) Pancytopenia Narrative/Plan: 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 Dr. Oliver reviewed purpose of testing, procedure and risks. Pt is agreeable to proceed with BM Bx and Asp. It was discussed with pt and Attending Physician that this could be done outpatient as her CBC is stable. Pt will be contacted by Dr. Oliver's office to sched procedure and follow up. Status: Acute Priority: Medium Code(s): D61.818 - OTHER PANCYTOPENIA SNOMED Code(s): 788289845 Plan: Doctor attests: I performed a history and physical examination of this patient, discussed with dictator. I agree with dictators note, documented as a scribe.
== END 2018-04-12 13:28 | disposition home or self-care (01) | DRG 394 ==
LOC: EC 19:30 → 4MS4W 21:23
PROVIDERS: ADMIT Internal Medicine Geriatric Medicine; ATTEND Internal Medicine Geriatric Medicine
PROC: 0DB78ZX Excision of Stomach, Pylorus, Via Natural or Artificial Opening Endoscopic, Diagnostic (ICD-10-PCS; 2018-04-08)
PROC: 30233N1 Transfusion of Nonautologous Red Blood Cells into Peripheral Vein, Percutaneous Approach (ICD-10-PCS; 2018-04-08)
PROC: 0DBM8ZX Excision of Descending Colon, Via Natural or Artificial Opening Endoscopic, Diagnostic (ICD-10-PCS; principal; 2018-04-08 16:45)
PROC: 0DBN8ZX Excision of Sigmoid Colon, Via Natural or Artificial Opening Endoscopic, Diagnostic (ICD-10-PCS; 2018-04-08 16:45)
DX: K55.031 Focal (segmental) acute (reversible) ischemia of large intestine (principal); D61.818 Other pancytopenia; E83.42 Hypomagnesemia; H40.9 Unspecified glaucoma; I13.10 Hypertensive heart and chronic kidney disease without heart failure, with stage 1 through stage 4 chronic kidney disease, or unspecified chronic kidney disease; K29.70 Gastritis, unspecified, without bleeding; K44.9 Diaphragmatic hernia without obstruction or gangrene; K57.30 Diverticulosis of large intestine without perforation or abscess without bleeding; M10.9 Gout, unspecified; N18.3 Chronic kidney disease, stage 3 (moderate); D51.9 Vitamin B12 deficiency anemia, unspecified; D46.9 Myelodysplastic syndrome, unspecified; Z96.643 Presence of artificial hip joint, bilateral; Z87.891 Personal history of nicotine dependence; Z87.11 Personal history of peptic ulcer disease; Z79.899 Other long term (current) drug therapy; Z98.42 Cataract extraction status, left eye; Z98.41 Cataract extraction status, right eye; Z96.1 Presence of intraocular lens
CPT/HCPCS: 36415; 43239; 45380; 74022; 80048; 80053; 82272; 82550; 82553; 82607; 82728; 82747; 83010; 83540; 83550; 83735; 83883; 83921; 84165; 84484; 85025; 85027; 85045; 85610; 85730; 86038; 86334; 86431; 86850; 86900; 86901; 88305; 93005; 96365; 96375; 99285

== ENCOUNTER 2018-12-15 13:16 | Emergency (ER) | payer MEDICARE ==
[2018-12-15 13:24] VITALS: RESP 18; TEMP 98.3
[2018-12-15] MEDS ORDERED: SODIUM CHLORIDE 0.9% 1,000 ML IV STA ×2 (13:28)
[2018-12-15] MEDS ORDERED: SODIUM CHLORIDE 0.9% 500 ML 500 ML IV STA (13:28)
[2018-12-15] MEDS ORDERED: ONDANSETRON 4 MG/2 ML VIAL IVP STA (13:46)
[2018-12-15 13:47] LABS: Basophils % (A) 0 %; Eosinophils # (A) 0.1 k/uL (0-0.7); Eosinophils % (A) 3 %; HCT 23.5 % (34.0-46.0); HGB 7.8 gm/dL (11.4-16.0); Lymphocytes # (A) 1.3 k/uL (1.0-4.8); Lymphocytes % (A) 40 %; MCH 40.3 pg (25.0-35.0); MCHC 33.1 g/dL (31.0-37.0); Macrocytosis Marked; Mean Platelet Volume 9.6; Monocytes # (A) 0.2 k/uL (0-1.0); Monocytes % (A) 6 %; Neutrophils # (A) 1.5 k/uL (1.3-7.7); Neutrophils % (A) 48 %; RBC 1.94 m/uL (3.80-5.40); RDW 14.9 % (11.5-15.5); WBC 3.2 k/uL (3.8-10.6)
--- NOTE | 2018-12-15 13:47 | ED ---
Recheck HPI - General Chief Complaint: Recheck/Abnormal Lab/Rx Stated Complaint: Hypotension Time Seen by Provider: 12/15/18 13:27 Source: EMS, RN notes reviewed, old records reviewed Mode of arrival: EMS Limitations: no limitations - History of Present Illness Initial Comments: This is an 83-year-old female the ER for evaluation. Patient presents asym ptomatic without complaint. Patient sent in for evaluation of possible low blood pressure with nausea. Again patient denies any chest pain shortness breath abdominal pain no recent fevers. No change in medications. She has admitted to being thirsty MD Complaint: other (Abdominal blood pressure) -: unknown Returns Today for: other (Recheck blood pressure) Symptoms Since Prior Visit: no new symptoms Associated Symptoms: none - Related Data Home Medications Medication Instructions Recorded Confirmed Allopurinol [Zyloprim] 100 mg PO DAILY 04/06/18 12/15/18 Carvedilol [Coreg] 12.5 mg PO BID 04/06/18 12/15/18 Losartan/Hydrochlorothiazide 1 tab PO DAILY 04/06/18 12/15/18 [Losartan-Hctz 100-12.5 mg Tab] Norman/D3/Mag11/Zinc/Elect Equip Maint Eng/Son/Bor 1 tab PO DAILY 04/07/18 12/15/18 [Caltrate 600+D Plus Tablet] Dorzolamide/Timolol/Pf [Cosopt Pf 1 drop RIGHT EYE BID 04/07/18 12/15/18 2%/5% Ophth Droperette] Latanoprost Ophth [Xalatan 0.005%] 1 drop BOTH EYES HS 04/07/18 12/15/18 Ranitidine HCl [Zantac] 150 mg PO HS 04/07/18 12/15/18 Cholecalciferol [Vitamin D3] 1,000 unit PO DAILY 12/15/18 12/15/18 Magnesium 400 mg PO BID 12/15/18 12/15/18 Timolol Maleate [Timolol Maleate 1 drop RIGHT EYE BID 12/15/18 12/15/18 0.5% Ophth Gel] traMADol HCL [Ultram] 50 mg PO TID PRN 12/15/18 12/15/18 Allergies Allergy/AdvReac Type Severity Reaction Status Date / Time adhesive tape Allergy Unknown Verified 12/15/18 15:11 dexamethasone Allergy Unknown Verified 12/15/18 15:11 neomycin Allergy Unknown Verified 12/15/18 15:11 polymyxin B Allergy Unknown Verified 12/15/18 15:11 Review of Systems ROS Statement: Those systems with pertinent positive or pertinent negative responses have been documented in the HPI. ROS Other: All systems not noted in ROS Statement are negative. Past Medical History Past Medical History: Hypertension Additional Past Medical History / Comment(s): glaucoma, gout, anemia History of Any Multi-Drug Resistant Organisms: None Reported Past Surgical History: Joint Replacement, Orthopedic Surgery Additional Past Surgical History / Comment(s): Partial right hip replacement, bilateral cataract removal and intraocular lens implants Past Psychological History: No Psychological Hx Reported Smoking Status: Former smoker Past Alcohol Use History: None Reported Past Drug Use History: None Reported - Past Family History Father Additional Family Medical History / Comment(s): Father in his 60s Mother Additional Family Medical History / Comment(s): Mother in her 90s from old age. Patient has 1 sister with no major medical problems. Patient does not have any brothers or children. General Exam Limitations: no limitations General appearance: alert, in no apparent distress Head exam: Present: atraumatic, normocephalic, normal inspection Eye exam: Present: normal appearance, PERRL, EOMI. Absent: scleral icterus, conjunctival injection, periorbital swelling ENT exam: Present: normal exam, mucous membranes moist Neck exam: Present: normal inspection. Absent: tenderness, meningismus, lymphadenopathy Respiratory exam: Present: normal lung sounds bilaterally. Absent: respiratory distress, wheezes, rales, rhonchi, stridor Cardiovascular Exam: Present: regular rate, normal rhythm, normal heart sounds. Absent: systolic murmur, diastolic murmur, rubs, gallop, clicks GI/Abdominal exam: Present: soft, normal bowel sounds. Absent: distended, tenderness, guarding, rebound, rigid Extremities exam: Present: normal inspection, full ROM, normal capillary refill. Absent: tenderness, pedal edema, joint swelling, calf tenderness Back exam: Present: normal inspection Neurological exam: Present: alert, oriented X3, CN II-XII intact Psychiatric exam: Present: normal affect, normal mood Skin exam: Present: warm, dry, intact, normal color. Absent: rash Course Vital Signs 12/15/18 12/15/18 12/15/18 13:19 13:23 13:30 Temperature 98.3 F Pulse Rate 63 63 Respiratory 18 Rate Blood Pressure 102/63 102/63 O2 Sat by Pulse 97 83 L 97 Oximetry 12/15/18 12/15/18 12/15/18 13:40 13:50 14:00 Temperature Pulse Rate 57 L 66 62 Respiratory Rate Blood Pressure 87/49 87/49 87/49 O2 Sat by Pulse 94 L 92 L 93 L Oximetry 12/15/18 12/15/18 12/15/18 14:10 14:20 14:30 Temperature Pulse Rate 63 73 Respiratory Rate Blood Pressure 87/49 100/54 100/54 O2 Sat by Pulse 91 L 92 L Oximetry 12/15/18 12/15/18 12/15/18 14:40 14:50 15:00 Temperature Pulse Rate 73 68 70 Respiratory Rate Blood Pressure 100/54 102/58 102/58 O2 Sat by Pulse 95 93 L Oximetry 12/15/18 15:10 Temperature Pulse Rate 66 Respiratory 18 Rate Blood Pressure 99/54 O2 Sat by Pulse 93 L Oximetry - Reevaluation(s) Reevaluation #1: 12/15/18 16:15 Medical record reviewed Reevaluation #2: 12/15/18 16:15 Patient's blood pressures improved Reevaluation #3: 12/15/18 16:15 Dr. Fitzgerald, patient okay for discharge as she is asymptomatic, again spoke with patient states she feels well Medical Decision Making - Medical Decision Making 83 female the ER for evaluation presents today for evaluation regards to low blood pressure and nausea. Blood pressures resolved, patient remains asym ptomatic and can be discharged home - Lab Data Result diagrams: 12/15/18 13:31 12/15/18 13:31 Lab Results 12/15/18 12/15/18 12/15/18 Range/Units 13:31 13:31 13:31 WBC 3.2 L (3.8-10.6) k/uL RBC 1.94 L (3.80-5.40) m/uL Hgb 7.8 L (11.4-16.0) gm/dL Hct 23.5 L (34.0-46.0) % MCV 121.5 H (80.0-100.0) fL MCH 40.3 H (25.0-35.0) pg MCHC 33.1 (31.0-37.0) g/dL RDW 14.9 (11.5-15.5) % Plt Count 36 L (150-450) k/uL Neutrophils % 48 % Lymphocytes % 40 % Monocytes % 6 % Eosinophils % 3 % Basophils % 0 % Neutrophils # 1.5 (1.3-7.7) k/uL Lymphocytes # 1.3 (1.0-4.8) k/uL Monocytes # 0.2 (0-1.0) k/uL Eosinophils # 0.1 (0-0.7) k/uL Basophils # 0.0 (0-0.2) k/uL Manual Slide Review Performed Poikilocytosis (manual Present Macrocytosis Marked PT (9.0-12.0) sec INR (<1.2) APTT (22.0-30.0) sec Sodium 136 L (137-145) mmol/L Potassium 5.0 (3.5-5.1) mmol/L Chloride 103 (98-107) mmol/L Carbon Dioxide 25 (22-30) mmol/L Anion Gap 8 mmol/L BUN 25 H (7-17) mg/dL Creatinine 1.64 H (0.52-1.04) mg/dL Est GFR (CKD-EPI)AfAm 33 (>60 ml/min/1.73 sqM) Est GFR (CKD-EPI)NonAf 28 (>60 ml/min/1.73 sqM) Glucose 110 H (74-99) mg/dL Plasma Lactic Acid Kimani 2.3 H* (0.7-2.0) mmol/L Calcium 9.9 (8.4-10.2) mg/dL Phosphorus 3.4 (2.5-4.5) mg/dL Magnesium 2.0 (1.6-2.3) mg/dL Total Bilirubin 0.7 (0.2-1.3) mg/dL AST 21 (14-36) U/L ALT 20 (9-52) U/L Alkaline Phosphatase 48 (38-126) U/L Troponin I (0.000-0.034) ng/mL Total Protein 6.0 L (6.3-8.2) g/dL Albumin 3.3 L (3.5-5.0) g/dL 03/28/19 03/28/19 Range/Units 13:31 14:23 WBC (3.8-10.6) k/uL RBC (3.80-5.40) m/uL Hgb (11.4-16.0) gm/dL Hct (34.0-46.0) % MCV (80.0-100.0) fL MCH (25.0-35.0) pg MCHC (31.0-37.0) g/dL RDW (11.5-15.5) % Plt Count (150-450) k/uL Neutrophils % % Lymphocytes % % Monocytes % % Eosinophils % % Basophils % % Neutrophils # (1.3-7.7) k/uL Lymphocytes # (1.0-4.8) k/uL Monocytes # (0-1.0) k/uL Eosinophils # (0-0.7) k/uL Basophils # (0-0.2) k/uL Manual Slide Review Poikilocytosis (manual Macrocytosis PT 10.1 (9.0-12.0) sec INR 0.9 (<1.2) APTT 18.3 L (22.0-30.0) sec Sodium (137-145) mmol/L Potassium (3.5-5.1) mmol/L Chloride (98-107) mmol/L Carbon Dioxide (22-30) mmol/L Anion Gap mmol/L BUN (7-17) mg/dL Creatinine (0.52-1.04) mg/dL Est GFR (CKD-EPI)AfAm (>60 ml/min/1.73 sqM) Est GFR (CKD-EPI)NonAf (>60 ml/min/1.73 sqM) Glucose (74-99) mg/dL Plasma Lactic Acid Kimani (0.7-2.0) mmol/L Calcium (8.4-10.2) mg/dL Phosphorus (2.5-4.5) mg/dL Magnesium (1.6-2.3) mg/dL Total Bilirubin (0.2-1.3) mg/dL AST (14-36) U/L ALT (9-52) U/L Alkaline Phosphatase (38-126) U/L Troponin I <0.012 (0.000-0.034) ng/mL Total Protein (6.3-8.2) g/dL Albumin (3.5-5.0) g/dL - EKG Data -: EKG Interpreted by Me (EKG shows sinus rhythm rate of 63, AL 136, QRS 76, QTc 419) Disposition Clinical Impression: Weakness Disposition: HOME SELF-CARE Condition: Good Instructions (If sedation given, give patient instructions): Weakness (ED) Is patient prescribed a controlled substance at d/c from ED?: No Referrals: Golden Noble MD [Primary Care Provider] - 1-2 days
[2018-12-15 13:52] LABS: MCV 121.5 fL (80.0-100.0)
[2018-12-15 14:00] LABS: Albumin 3.3 g/dL (3.5-5.0); Calcium 9.9 mg/dL (8.4-10.2); Phosphorus 3.4 mg/dL (2.5-4.5); Total Bilirubin 0.7 mg/dL (0.2-1.3)
[2018-12-15 14:13] LABS: Platelet Count 36 k/uL (150-450); Poikilocytosis (M) Present
--- NOTE | 2018-12-15 14:46 | XR ---
EXAMINATION TYPE: XR chest 2V DATE OF EXAM: 12/15/2018 COMPARISON: NONE HISTORY: Shortness of breath TECHNIQUE: Frontal and lateral views of the chest are obtained. FINDINGS: Scattered senescent parenchymal changes noted. Hyperinflation compatible with COPD. No evidence for infiltrate. No evidence for atelectasis. Heart size is stable. The stomach appears to be virtually intrathoracic in location. Mediastinal structures are stable and grossly unremarkable. No evidence for hilar prominence. Degenerative changes dorsal spine. IMPRESSION: 1. No evidence for acute pulmonary disease.
[2018-12-15 14:53] LABS: INR 0.9 (<1.2); Prothrombin Time 10.1 sec (9.0-12.0)
[2018-12-15 14:54] LABS: Partial Thromboplastin Time 18.3 sec (22.0-30.0)
[2018-12-15 16:33] VITALS: BP 93/45; PULSE 79
== END 2018-12-15 16:33 | disposition home or self-care (01) ==
LOC: EC 13:16
DX: R53.1 Weakness (principal); R11.0 Nausea; I10 Essential (primary) hypertension; Z79.02 Long term (current) use of antithrombotics/antiplatelets; Z79.899 Other long term (current) drug therapy; Z91.048 Other nonmedicinal substance allergy status; Z88.1 Allergy status to other antibiotic agents; Z88.8 Allergy status to other drugs, medicaments and biological substances; Z87.891 Personal history of nicotine dependence; Z96.643 Presence of artificial hip joint, bilateral
CPT/HCPCS: 99285; 36415; 93005; 80053; 83605; 83735; 84100; 84484; 85025; 85610; 85730; 71046; 96374; 96361 ×3; J2405

== ENCOUNTER 2019-12-05 23:35 | Observation (INO) | payer MEDICARE ==
[2019-12-05] MEDS ORDERED: SODIUM CHLORIDE 0.9% 500 ML 500 ML IV STA (23:47)
--- NOTE | 2019-12-06 00:06 | ED ---
General Adult HPI - General Chief complaint: Abdominal Pain Stated complaint: Abd Pain Time Seen by Provider: 12/05/19 23:37 Source: patient, EMS Mode of arrival: EMS Limitations: no limitations - History of Present Illness Initial comments: Dictation was produced using [employer] dictation software. please excuse any grammatical, word or spelling errors. Chief Complaint: 84-year-old female past medical history of diverticulosis, gastritis, acute ischemic colitis presents with epigastric abdominal pain. History of Present Illness: She is a 4-year-old female she has multiple comorbidities. She is here today with 1 day of abdominal pain. She localizes the pain to her epigastric abdominal area. Denies any nausea or vomiting. She states the pain is constant. Patient reports he had emergency endoscopy that was performed approximately 2 years ago. Patient seen at that time she presented initially with gastrointestinal bleeding. She had a scope that showed findings to suggest acute ischemic colitis of the distal colon. Denies any fever, chills or night sweats. She states the pain as dull and constant. She denies any abdominal surgery. She says her gallbladder and appendix. The ROS documented in this emergency department record has been reviewed and confirmed by me. Those systems with pertinent positive or negative responses have been documented in the HPI. All other systems are other negative and/or noncontributory. PHYSICAL EXAM: General Impression: Alert and oriented x3, not in acute distress HEENT: Normocephalic atraumatic, extra-ocular movements intact, pupils equal and reactive to light bilaterally, mucous membranes moist. Cardiovascular: Heart regular rate and rhythm, S1&S2 audible, no murmurs, rubs or gallops Chest: Lungs clear to auscultation bilaterally, no rhonchi, no wheeze, no rales Abdomen: Epigastric abdominal tenderness, negative Schroeder sign, no pain at McBurney's point, no rebound tenderness. No tenderness to palpation left lower quadrant. Musculoskeletal: Pulses present and equal in all extremities, no peripheral edema Motor: no focal deficits noted Neurological: CN II-XII grossly intact, no focal motor or sensory deficits noted Skin: Intact with no visualized rashes Psych: Normal affect and mood ED course: 84-year-old female with past medical history of acute ischemic c olitis presents with abdominal pain to the epigastric area times one day. Signs upon arrival are within acceptable limits. Laboratory evaluation obtained. CBC is unremarkable. Patient's levels appear to be baseline. Metabolic panel shows findings within acceptable limits. Computed tomography scan of the abdomen and pelvis was obtained showing large hiatal hernia with intrathoracic colon and stomach. Computed tomography scan of the chest was obtained to fully visualize the extent of the hernia. Patient ambulated at bedside. She is short of breath whenever she is walking. Given degree of symptoms patient be admitted with cardiothoracic consult. Discussed patient case with Dr. Holden is willing to accept patients care. - Related Data Home Medications Medication Instructions Recorded Confirmed Allopurinol [Zyloprim] 100 mg PO DAILY 04/06/18 12/15/18 Carvedilol [Coreg] 12.5 mg PO BID 04/06/18 12/15/18 Losartan/Hydrochlorothiazide 1 tab PO DAILY 04/06/18 12/15/18 [Losartan-Hctz 100-12.5 mg Tab] Norman/D3/Mag11/Zinc/Shoe Lining Fitter/Son/Bor 1 tab PO DAILY 04/07/18 12/15/18 [Caltrate 600+D Plus Tablet] Dorzolamide/Timolol/Pf [Cosopt Pf 1 drop RIGHT EYE BID 04/07/18 12/15/18 2%/5% Ophth Droperette] Latanoprost Ophth [Xalatan 0.005%] 1 drop BOTH EYES HS 04/07/18 12/15/18 Ranitidine HCl [Zantac] 150 mg PO HS 04/07/18 12/15/18 Cholecalciferol [Vitamin D3] 1,000 unit PO DAILY 12/15/18 12/15/18 Magnesium 400 mg PO BID 12/15/18 12/15/18 Timolol Maleate [Timolol Maleate 1 drop RIGHT EYE BID 12/15/18 12/15/18 0.5% Ophth Gel] traMADol HCL [Ultram] 50 mg PO TID PRN 12/15/18 12/15/18 Allergies Allergy/AdvReac Type Severity Reaction Status Date / Time adhesive tape Allergy Unknown Verified 12/05/19 23:42 dexamethasone Allergy Unknown Verified 12/05/19 23:42 neomycin Allergy Unknown Verified 12/05/19 23:42 polymyxin B Allergy Unknown Verified 12/05/19 23:42 Review of Systems ROS Statement: Those systems with pertinent positive or pertinent negative responses have been documented in the HPI. ROS Other: All systems not noted in ROS Statement are negative. Past Medical History Past Medical History: Hypertension Additional Past Medical History / Comment(s): glaucoma, gout, anemia History of Any Multi-Drug Resistant Organisms: None Reported Past Surgical History: Joint Replacement, Orthopedic Surgery Additional Past Surgical History / Comment(s): Partial right hip replacement, bilateral cataract removal and intraocular lens implants Past Psychological History: No Psychological Hx Reported Smoking Status: Former smoker Past Alcohol Use History: None Reported Past Drug Use History: None Reported - Past Family History Father Additional Family Medical History / Comment(s): Father in his 60s Mother Additional Family Medical History / Comment(s): Mother in her 90s from old age. Patient has 1 sister with no major medical problems. Patient does not have any brothers or children. General Exam Limitations: no limitations Course Vital Signs 12/05/19 23:37 Temperature 98.1 F Pulse Rate 73 Respiratory 16 Rate Blood Pressure 178/81 O2 Sat by Pulse 95 Oximetry Medical Decision Making - Lab Data Result diagrams: 12/06/19 00:05 12/06/19 00:05 Lab Results 12/06/19 12/06/19 12/06/19 Range/Units 00:05 00:05 00:05 WBC 4.0 (3.8-10.6) k/uL RBC 2.47 L (3.80-5.40) m/uL Hgb 9.3 L (11.4-16.0) gm/dL Hct 28.1 L (34.0-46.0) % MCV 113.9 H (80.0-100.0) fL MCH 37.8 H (25.0-35.0) pg MCHC 33.2 (31.0-37.0) g/dL RDW 15.2 (11.5-15.5) % Plt Count 56 L (150-450) k/uL Neutrophils % (Manual) 57 % Lymphocytes % (Manual) 37 % Monocytes % (Manual) 6 % Neutrophils # (Manual) 2.28 (1.3-7.7) k/uL Lymphocytes # (Manual) 1.48 (1.0-4.8) k/uL Monocytes # (Manual) 0.24 (0-1.0) k/uL Nucleated RBCs 0 (0-0) /100 WBC Manual Slide Review Performed Large Platelets Present Macrocytosis Marked A Sodium 134 L (137-145) mmol/L Potassium 4.1 (3.5-5.1) mmol/L Chloride 102 (98-107) mmol/L Carbon Dioxide 26 (22-30) mmol/L Anion Gap 6 mmol/L BUN 23 H (7-17) mg/dL Creatinine 1.42 H (0.52-1.04) mg/dL Est GFR (CKD-EPI)AfAm 39 (>60 ml/min/1.73 sqM) Est GFR (CKD-EPI)NonAf 34 (>60 ml/min/1.73 sqM) Glucose 100 H (74-99) mg/dL Plasma Lactic Acid Kimani 0.9 (0.7-2.0) mmol/L Calcium 10.2 (8.4-10.2) mg/dL Total Bilirubin 0.7 (0.2-1.3) mg/dL AST 23 (14-36) U/L ALT 13 (4-34) U/L Alkaline Phosphatase 67 (38-126) U/L Total Protein 6.8 (6.3-8.2) g/dL Albumin 3.8 (3.5-5.0) g/dL Lipase 166 (23-300) U/L Urine Color Urine Appearance (Clear) Urine pH (5.0-8.0) Ur Specific [place] (1.001-1.035) Urine Protein (Negative) Urine Glucose (UA) (Negative) Urine Ketones (Negative) Urine Blood (Negative) Urine Nitrite (Negative) Urine Bilirubin (Negative) Urine Urobilinogen (<2.0) mg/dL Ur Leukocyte Esterase (Negative) Urine RBC (0-5) /hpf Urine WBC (0-5) /hpf Ur Squamous Epith Cells (0-4) /hpf Urine Bacteria (None) /hpf Urine Mucus (None) /hpf 12/06/19 Range/Units 01:05 WBC (3.8-10.6) k/uL RBC (3.80-5.40) m/uL Hgb (11.4-16.0) gm/dL Hct (34.0-46.0) % MCV (80.0-100.0) fL MCH (25.0-35.0) pg MCHC (31.0-37.0) g/dL RDW (11.5-15.5) % Plt Count (150-450) k/uL Neutrophils % (Manual) % Lymphocytes % (Manual) % Monocytes % (Manual) % Neutrophils # (Manual) (1.3-7.7) k/uL Lymphocytes # (Manual) (1.0-4.8) k/uL Monocytes # (Manual) (0-1.0) k/uL Nucleated RBCs (0-0) /100 WBC Manual Slide Review Large Platelets Macrocytosis Sodium (137-145) mmol/L Potassium (3.5-5.1) mmol/L Chloride (98-107) mmol/L Carbon Dioxide (22-30) mmol/L Anion Gap mmol/L BUN (7-17) mg/dL Creatinine (0.52-1.04) mg/dL Est GFR (CKD-EPI)AfAm (>60 ml/min/1.73 sqM) Est GFR (CKD-EPI)NonAf (>60 ml/min/1.73 sqM) Glucose (74-99) mg/dL Plasma Lactic Acid Kimani (0.7-2.0) mmol/L Calcium (8.4-10.2) mg/dL Total Bilirubin (0.2-1.3) mg/dL AST (14-36) U/L ALT (4-34) U/L Alkaline Phosphatase (38-126) U/L Total Protein (6.3-8.2) g/dL Albumin (3.5-5.0) g/dL Lipase (23-300) U/L Urine Color Light Yellow Urine Appearance Cloudy H (Clear) Urine pH 6.5 (5.0-8.0) Ur Specific [place] 1.014 (1.001-1.035) Urine Protein Negative (Negative) Urine Glucose (UA) Negative (Negative) Urine Ketones Negative (Negative) Urine Blood Negative (Negative) Urine Nitrite Positive H (Negative) Urine Bilirubin Negative (Negative) Urine Urobilinogen <2.0 (<2.0) mg/dL Ur Leukocyte Esterase Trace H (Negative) Urine RBC 1 (0-5) /hpf Urine WBC 5 (0-5) /hpf Ur Squamous Epith Cells <1 (0-4) /hpf Urine Bacteria Occasional H (None) /hpf Urine Mucus Rare H (None) /hpf Disposition Clinical Impression: Hiatal hernia Disposition: ADMITTED IP TO THIS [facility] Condition: Fair Referrals: Golden Noble MD [Primary Care Provider] - 1-2 days Decision Time: 01:41
[2019-12-06 00:23] LABS: HCT 28.1 % (34.0-46.0); HGB 9.3 gm/dL (11.4-16.0); MCH 37.8 pg (25.0-35.0); MCHC 33.2 g/dL (31.0-37.0); MCV 113.9 fL (80.0-100.0); Macrocytosis Marked; Mean Platelet Volume 10.8; RBC 2.47 m/uL (3.80-5.40); RDW 15.2 % (11.5-15.5)
[2019-12-06 00:31] LABS: Albumin 3.8 g/dL (3.5-5.0); Calcium 10.2 mg/dL (8.4-10.2); Potassium 4.1 mmol/L (3.5-5.1); Total Bilirubin 0.7 mg/dL (0.2-1.3); Total Protein 6.8 g/dL (6.3-8.2)
[2019-12-06 00:54] LABS: Lymphocytes # (M) 1.48 k/uL (1.0-4.8); Monocytes # (M) 0.24 k/uL (0-1.0); Neutrophils # (M) 2.28 k/uL (1.3-7.7); Neutrophils % (M) 57 %; Nucleated Red Blood Cells 0 /100 WBC (0-0); Total Cells Counted 100
[2019-12-06 00:55] LABS: Large Platelets Present; Platelet Count 56 k/uL (150-450)
--- NOTE | 2019-12-06 01:05 | CT ---
EXAMINATION TYPE: CT abdomen pelvis w con DATE OF EXAM: 12/06/2019 COMPARISON: None HISTORY: LLQ Abd pain CT DLP: 1059.20 mGycm Automated exposure control for dose reduction was used. CONTRAST: Performed with IV Contrast, patient injected with 80 mL of Isovue 300. Multiple axial sections were obtained from the diaphragm to the floor the pelvis with IV contrast. There is some mild atelectasis at the right lung base adjacent to the large hiatal hernia. Hernia contains stomach and transverse colon. Heart size is normal. There is no pericardial effusion. There are minute pleural effusions. Liver and spleen appear normal. Bile ducts are not dilated. Gallbladder appears normal. There is no p ancreatic mass. There is no adrenal mass. Kidneys show satisfactory contrast opacification. There is no hydronephrosi s. There is 1 cm cortical cyst upper pole right kidney. Ureters are not dilated. Abdominal aorta is a theromatous. There is no retroperitoneal adenopathy. There are multiple sigmoid diverticula. There is right hip prosthesis. Bladder distends smoothly. The re is no inguinal hernia. There is no evidence of diverticulitis. There is no mesenteric edema. There is no ascites or free air. There is no bowel obstruction. Appendix appears normal. There is multilev el spondylotic changes in the lumbar spine. There is 50% anterior wedging of T11 vertebra that appear s old. There is lumbar levorotoscoliosis. IMPRESSION: Intrathoracic stomach and large hiatal hernia. Mild pleural reaction and atelectasis at the lung base s. Old T11 compression fracture. Atherosclerotic vascular disease. No sign of acute abdomen and pelvi s. Moderate sigmoid diverticulosis without diverticulitis.
[2019-12-06 01:34] LABS: Appearance,Urine Cloudy (Clear); Bacteria,Urine Occasional /hpf; Bilirubin,Urine Negative (Negative); Blood,Urine Negative (Negative); Color,Urine Light Yellow; Glucose,Urine (UA) Negative (Negative); Ketones,Urine Negative (Negative); Leukocyte Esterase,Urine Trace (Negative); Mucus,Urine Rare /hpf; Nitrite,Urine Positive (Negative); PH, Urine 6.5 (5.0-8.0); Protein,Urine Negative (Negative); RBC,Urine 1 /hpf (0-5); Specific Gravity,Urine 1.014 (1.001-1.035); Squamous Epithelial Cell,Urine <1 /hpf (0-4); Urobilinogen,Urine <2.0 mg/dL (<2.0); WBC,Urine 5 /hpf (0-5)
[2019-12-06] MEDS ORDERED: ACETAMINOPHEN TAB 325 MG TAB PO PRN (01:37)
[2019-12-06] MEDS ORDERED: ONDANSETRON 4 MG/2 ML VIAL IVP PRN (01:37)
[2019-12-06] MEDS ORDERED: NALOXONE 0.4 MG/ML 1 ML VIAL IV PRN (01:37)
--- NOTE | 2019-12-06 01:38 | CT ---
EXAMINATION TYPE: CT chest wo con DATE OF EXAM: 12/06/2019 COMPARISON: None HISTORY: Chest/Abd pain CT DLP: 310 mGycm Automated exposure control for dose reduction was used. Images were obtained from the thoracic inlet to the diaphragm with no contrast. There is intrathoracic stomach with large hiatal hernia. Hernia also contains transverse colon. There is atelectasis in the right lower lobe adjacent to the hernia. Heart size is normal. There is no per icardial effusion. There are small bilateral pleural effusions. There is no evidence of a pulmonary mass. Thoracic aorta is atheromatous. There is no aneurysm. There is no mediastinal adenopathy. There are no hilar masses. There is T11 anterior wedging 50% that appe ars old. The ribs appear intact. IMPRESSION: Large hiatal hernia with intrathoracic stomach. No pulmonary consolidation. Right lower lobe mild ate lectasis. Small pleural effusions.
[2019-12-06] MEDS: SODIUM CHLORIDE 0.9% 1,000 ML IV SCH ×2 (03:48→13:21)
[2019-12-06 05:10] VITALS: RESP 16
--- NOTE | 2019-12-06 08:15 | P.GSCN ---
History of Present Illness Consult date: 12/06/19 Reason for Consult: Diaphragmatic hernia Requesting physician: Dagoberto Adler History of present illness: This is an 84-year-old female who follows on an outpatient basis with Dr. Noble. She walks with a walker and lives at [facility]. She has a previous medical history of chronic anemia, thrombocytopenia with bone marrow biopsy per Dr. Webster, known moderate to large hiatal hernia as far back as 2018, chronic kidney disease with baseline creatinine 1.4-1.6, hypertension, gout, ischemic colitis, diverticulosis, and previous tobacco dependence. She presented to [facility] emergency room this morning with complaints of abdominal pain for the previous 2 days. She describes the pain as an intermittent dull ache, at its worst she rated it 2 out of 10. She states the aching started around mid abdomen close to a surgical scar and has moved up to the epigastric area. She denies any nausea, vomiting, diarrhea, fevers. Last bowel movement was yesterday and she reports it as being normal. Last meal was yesterday in the afternoon. In the emergency room her lab work was unremarkable except for a hemoglobin of 9.3, platelet count 56, BUN 23, creatinine 1.42. Urinalysis was cloudy and positive for nitrites and trace leukocyte esterase. Abdomen/pelvis CT demonstrated a large hiatal hernia with intrathoracic stomach. CT of the chest was also completed demonstrating the same along with small bilateral pleural effusions. EKG demonstrated normal sinus rhythm. Due to her CT findings and symptomatology Dr. Martines from cardiothoracic surgery was consulted for surgical recommendations. Review of Systems Review of systems was completed and was negative except as noted - Gastrointestinal Reports as per HPI, Reports abdominal pain Past Medical History Past Medical History: Hypertension Additional Past Medical History / Comment(s): glaucoma, gout, anemia, thrombocytopenia, diverticulosis, ischemic colitis, chronic kidney disease History of Any Multi-Drug Resistant Organisms: None Reported Past Surgical History: Joint Replacement, Orthopedic Surgery Additional Past Surgical History / Comment(s): Partial right hip replacement, bilateral cataract removal and intraocular lens implants, abdominal surgery Past Psychological History: No Psychological Hx Reported Smoking Status: Former smoker Past Alcohol Use History: None Reported Additional Past Alcohol Use History / Comment(s): Patient was a smoker one pack per day for 40 years ago 10 years ago. She drinks alcohol rarely. She denies any marijuana or street drug use. She does not have CPAP, oxygen or nebulizer at home. Past Drug Use History: None Reported - Past Family History Father Additional Family Medical History / Comment(s): Father in his 60s Mother Additional Family Medical History / Comment(s): Mother in her 90s from old age. Patient has 1 sister with no major medical problems. Patient does not have any brothers or children. Medications and Allergies Home Medications Medication Instructions Recorded Confirmed Type Allopurinol [Zyloprim] 100 mg PO DAILY 04/06/18 12/15/18 History Carvedilol [Coreg] 12.5 mg PO BID 04/06/18 12/15/18 History Losartan/Hydrochlorothiazide 1 tab PO DAILY 04/06/18 12/15/18 History [Losartan-Hctz 100-12.5 mg Tab] Norman/D3/Mag11/Zinc/[employer] Architect/Son/Bor 1 tab PO DAILY 04/07/18 12/15/18 History [Caltrate 600+D Plus Tablet] Dorzolamide/Timolol/Pf [Cosopt Pf 1 drop RIGHT EYE BID 04/07/18 12/15/18 History 2%/5% Ophth Droperette] Latanoprost Ophth [Xalatan 0.005%] 1 drop BOTH EYES HS 04/07/18 12/15/18 History Ranitidine HCl [Zantac] 150 mg PO HS 04/07/18 12/15/18 History Cholecalciferol [Vitamin D3] 1,000 unit PO DAILY 12/15/18 12/15/18 History Magnesium 400 mg PO BID 12/15/18 12/15/18 History Timolol Maleate [Timolol Maleate 1 drop RIGHT EYE BID 12/15/18 12/15/18 History 0.5% Ophth Gel] traMADol HCL [Ultram] 50 mg PO TID PRN 12/15/18 12/15/18 History Allergies Allergy/AdvReac Type Severity Reaction Status Date / Time adhesive tape Allergy Unknown Verified 12/05/19 23:42 dexamethasone Allergy Unknown Verified 12/05/19 23:42 neomycin Allergy Unknown Verified 12/05/19 23:42 polymyxin B Allergy Unknown Verified 12/05/19 23:42 Surgical - Exam Vital Signs Temp Pulse Resp BP Pulse Ox 98.1 F 73 16 178/81 95 03/17/20 23:37 12/05/19 23:37 12/05/19 23:37 12/05/19 23:37 12/05/19 23:37 - General well developed, well nourished, no distress, no pain - Eyes normal ocular movement - ENT no hearing loss - Neck no masses, no bruits, trachea midline - Respiratory Lungs sounds clear bilaterally. Respirations even, nonlabored. Currently on 2 L nasal cannula with oxygen saturation 91-94%. No clubbing or cyanosis present. - Cardiovascular S1, S2 present. Regular rate and rhythm. Palpable peripheral pulses bilaterally. Trace bilateral lower extremity edema present. No calf pain or tenderness noted. - Abdomen Abdomen: soft, non tender, bowel sounds, surgical scars - Genitourinary Deferred - Rectum Deferred - Integumentary no rash, no growths - Neurologic normal coordination, normal sensation - Musculoskeletal normal posture - Psychiatric oriented to time, oriented to person, oriented to place Results - Labs 12/06/19 00:05 12/06/19 00:05 Abnormal Lab Results - Last 24 Hours (Table) 12/06/19 12/06/19 12/06/19 Range/Units 00:05 00:05 01:05 RBC 2.47 L (3.80-5.40) m/uL Hgb 9.3 L (11.4-16.0) gm/dL Hct 28.1 L (34.0-46.0) % MCV 113.9 H (80.0-100.0) fL MCH 37.8 H (25.0-35.0) pg Plt Count 56 L (150-450) k/uL Macrocytosis Marked A Sodium 134 L (137-145) mmol/L BUN 23 H (7-17) mg/dL Creatinine 1.42 H (0.52-1.04) mg/dL Glucose 100 H (74-99) mg/dL Urine Appearance Cloudy H (Clear) Urine Nitrite Positive H (Negative) Ur Leukocyte Esterase Trace H (Negative) Urine Bacteria Occasional H (None) /hpf Urine Mucus Rare H (None) /hpf Diabetes panel 12/06/19 Range/Units 00:05 Sodium 134 L (137-145) mmol/L Potassium 4.1 (3.5-5.1) mmol/L Chloride 102 (98-107) mmol/L Carbon Dioxide 26 (22-30) mmol/L BUN 23 H (7-17) mg/dL Creatinine 1.42 H (0.52-1.04) mg/dL Glucose 100 H (74-99) mg/dL Calcium 10.2 (8.4-10.2) mg/dL AST 23 (14-36) U/L ALT 13 (4-34) U/L Alkaline Phosphatase 67 (38-126) U/L Total Protein 6.8 (6.3-8.2) g/dL Albumin 3.8 (3.5-5.0) g/dL Calcium panel 12/06/19 Range/Units 00:05 Calcium 10.2 (8.4-10.2) mg/dL Albumin 3.8 (3.5-5.0) g/dL Pituitary panel 12/06/19 Range/Units 00:05 Sodium 134 L (137-145) mmol/L Potassium 4.1 (3.5-5.1) mmol/L Chloride 102 (98-107) mmol/L Carbon Dioxide 26 (22-30) mmol/L BUN 23 H (7-17) mg/dL Creatinine 1.42 H (0.52-1.04) mg/dL Glucose 100 H (74-99) mg/dL Calcium 10.2 (8.4-10.2) mg/dL Adrenal panel 12/06/19 Range/Units 00:05 Sodium 134 L (137-145) mmol/L Potassium 4.1 (3.5-5.1) mmol/L Chloride 102 (98-107) mmol/L Carbon Dioxide 26 (22-30) mmol/L BUN 23 H (7-17) mg/dL Creatinine 1.42 H (0.52-1.04) mg/dL Glucose 100 H (74-99) mg/dL Calcium 10.2 (8.4-10.2) mg/dL Total Bilirubin 0.7 (0.2-1.3) mg/dL AST 23 (14-36) U/L ALT 13 (4-34) U/L Alkaline Phosphatase 67 (38-126) U/L Total Protein 6.8 (6.3-8.2) g/dL Albumin 3.8 (3.5-5.0) g/dL - Imaging CT scan - abdomen: report reviewed, image reviewed CT scan - chest: report reviewed, image reviewed CT scan - pelvis: report reviewed, image reviewed EKG: image reviewed Assessment and Plan Assessment: 1. Abdominal pain, hiatal hernia on CT, known history of moderate to large hiatal hernia as far back as 2018 2. Chronic anemia 3. Chronic thrombocytopenia with bone marrow biopsy in the past, results unk nown, patient does follow with Dr. Webster 4. Hypertension 5. Chronic kidney disease 6. Gout 7. History of ischemic colitis 8. Diverticulosis 9. Previous tobacco dependence Plan: The patient was seen and examined at the bedside with Dr. Martines. Chart/diagnostics were reviewed. At this time the patient does not complain of any pain per se, but does state she just feels something is there in her epigastric area. With palpation the patient states she is aware that I'm pushing on her belly but she does not appear to be in any significant distress. She does appear to have a chronic paraesophageal hernia with low risk for tortion or ischemia. The hernia has been present for some time, although extent of increase in size is not clear given no previous CTs in our sytem. Abdominal aortic atherosclerosis is present, uncertain if there is any relation to her ab dominal discomfort. She reports some intermittent shortness of breath for quite a while, unsure of it's relation to current illness. There is no need for urgent or emergent surgery. In fact, she would be high risk for paraesophageal hernia repair given her increased age, atherosclerosis, and previous abdominal surgery which would need to be balanced with the benefits of surgery. She may follow up with us on an outpatient basis. Management of other medical comorbidities per primary care service. Thank you for allowing us to participate in the care of this patient. Time with Patient: Greater than 30
[2019-12-06] MEDS ORDERED: PANTOPRAZOLE 40 MG/10 ML VIAL IV SCH (09:00)
[2019-12-06] MEDS ORDERED: CARVEDILOL 12.5 MG TAB PO SCH (10:45)
[2019-12-06 12:11] VITALS: BP 137/80; PULSE 80; TEMP 97.7
--- NOTE | 2019-12-06 14:10 | P.HPIM ---
History of Present Illness H&P Date: 12/06/19 Chief Complaint: Abdominal pain HISTORY AND PHYSICAL AND DISCHARGE SUMMARY: This is an 84-year-old female patient of Dr. 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 Beckett, moderate to large hiatal hernia in 2018, remote history of tobacco use and dependence. Patient complains of abdominal pain in the suprapubic area, she denies nausea, vomiting, diarrhea. No fevers or chills. Her last bowel movement was normal. Patient's last EGD and colonoscopy were March [address] Sharp and at that time revealed moderate to large size hiatal hernia and gastritis of the prepyloric area. Colonoscopy revealed segmental colitis of the sigmoid and descending colon consistent with acute ischemic colitis status post multiple biopsies. Biopsies confirmed chronic gastritis, acute colitis. H. pylori was negative and no malignant cells were identified. Patient came into [facility] emergency center for evaluation. WBC 4.0, hemoglobin 9.3, platelet count 56. Sodium 134, potassium 4.1, chloride 102, CO2 26, BUN 23 and creatinine 1.42. Blood sugar 100. Liver function tests within normal limits. Lipase 166. Urinalysis cloudy, nitrate positive, leukoesterase trace. CAT scan of the chest revealed a large hiatal hernia with intrathoracic stomach. No pulmonary consolidation. Right lower lobe mild atelectasis. Small pleural effusions. CAT scan of the abdomen and pelvis revealed the same with mild pleural reaction atelectasis at the lung bases. Old T11 compression fracture. No sign of acute abdomen and pelvis. Moderate sigmoid diverticulosis without diverticulitis. Patient was admitted to the [facility] floor and consult with cardiothoracic surgery. At this time the patient did not have significant pain to warrant any surgical intervention. Patient will be treated for UTI and discharged home today in stable condition. Review of Systems Constitutional: Denies chills, Denies fatigue, Denies fever, Denies lethargy, Denies malaise, Denies poor appetite, Denies weight loss Eyes: denies blurred vision, denies pain Ears, nose, mouth and throat: Denies dysphagia, Denies headache, Denies nasal congestion, Denies nasal discharge, Denies sore throat, Denies vertigo Cardiovascular: Denies chest pain, Denies decreased exercise tolerance, Denies dyspnea on exertion, Denies edema, Denies leg edema, Denies lightheadedness, Denies shortness of breath, Denies syncope Respiratory: Denies cough, Denies cough with sputum, Denies dyspnea, Denies excessive sputum, Denies hemoptysis, Denies home oxygen, Denies respiratory infections, Denies sleep apnea, Denies wheezing Gastrointestinal: Reports abdominal pain, Denies diarrhea, Denies loss of appetite, Denies nausea, Denies vomiting Genitourinary: Denies dysuria, Denies hematuria Musculoskeletal: Denies frequent falls, Denies gait dysfunction, Denies muscle weakness, Denies myalgias Integumentary: Denies pruritus, Denies rash Neurological: Denies change in mentation, Denies change in speech, Denies numbness, Denies weakness Psychiatric: Denies anxiety, Denies depression Endocrine: Denies fatigue, Denies weight change Past Medical History Past Medical History: Hypertension Additional Past Medical History / Comment(s): glaucoma, gout, anemia, thrombocyt openia, diverticulosis, ischemic colitis History of Any Multi-Drug Resistant Organisms: None Reported Past Surgical History: Joint Replacement, Orthopedic Surgery Additional Past Surgical History / Comment(s): Partial right hip replacement, bilateral cataract removal and intraocular lens implants Past Psychological History: No Psychological Hx Reported Smoking Status: Former smoker Past Alcohol Use History: None Reported Additional Past Alcohol Use History / Comment(s): Patient was a smoker one pack per day for 40 years ago 10 years ago. She drinks alcohol rarely. She denies any marijuana or street drug use. She does not have CPAP, oxygen or nebulizer at home. Past Drug Use History: None Reported - Past Family History Father Additional Family Medical History / Comment(s): Father in his 60s Mother Additional Family Medical History / Comment(s): Mother in her 90s from old age. Patient has 1 sister with no major medical problems. Patient does not have any brothers or children. Medications and Allergies Home Medications Medication Instructions Recorded Confirmed Type Allopurinol [Zyloprim] 100 mg PO DAILY 04/06/18 12/06/19 History Carvedilol [Coreg] 12.5 mg PO BID 04/06/18 12/06/19 History Norman/D3/Mag11/Zinc/Adult Neuropsychologist/Son/Bor 1 tab PO DAILY 04/07/18 12/06/19 History [Caltrate 600+D Plus Tablet] Dorzolamide/Timolol/Pf [Cosopt Pf 1 drop RIGHT EYE BID 04/07/18 12/06/19 History 2%/5% Ophth Droperette] Latanoprost Ophth [Xalatan 0.005%] 1 drop BOTH EYES HS 04/07/18 12/06/19 History Cholecalciferol [Vitamin D3] 1,000 unit PO DAILY 12/15/18 12/06/19 History Magnesium 400 mg PO BID 12/15/18 12/06/19 History traMADol HCL [Ultram] 50 mg PO TID PRN 12/15/18 12/06/19 History Cephalexin [Keflex] 250 mg PO Q12HR #6 capsule 12/06/19 Rx Midodrine [ProAmatine] 5 mg PO BID PRN 12/06/19 12/06/19 History Allergies Allergy/AdvReac Type Severity Reaction Status Date / Time adhesive tape Allergy Unknown Verified 12/06/19 09:42 dexamethasone Allergy Unknown Verified 12/06/19 09:42 neomycin Allergy Unknown Verified 12/06/19 09:42 polymyxin B Allergy Unknown Verified 12/06/19 09:42 Physical Exam Vitals: Vital Signs Temp Pulse Pulse Resp BP BP Pulse Ox 12/06/19 05:09 97.9 F 73 16 134/77 91 L 12/06/19 03:33 98.0 F 71 20 159/85 94 L 12/06/19 03:25 98.0 F 71 20 159/85 94 L 12/06/19 03:06 98.1 F 69 18 133/66 98 12/06/19 02:02 63 18 141/64 97 12/05/19 23:37 98.1 F 73 16 178/81 95 Intake and Output 12/05/19 12/06/19 12/06/19 22:59 06:59 14:59 Intake Total 400 Balance 400 Intake: Amount of Fluid Infused ( 400 ml) Oral 0 Other: Voiding Method Toilet Weight 76.657 kg Gen: This is an 84-year-old female. She is sitting up in bed and appears to be comfortable and in no acute distress. HEENT: Head is atraumatic, normocephalic. Pupils equal, round. Sclerae is anicteric. NECK: Supple. No JVD. No lymphadenopathy. No thyromegaly. LUNGS: Clear to auscultation. No wheezes or rhonchi. No intercostal retractions. HEART: Regular rate and rhythm. No murmur. ABDOMEN: Soft. Bowel sounds are present. No masses. Mild suprapubic tenderness. EXTREMITIES: No pedal edema. No calf tenderness. NEUROLOGICAL: Patient is awake, alert and oriented x3. Cranial nerves 2 through 12 are grossly intact. Results CBC & Chem 7: 12/06/19 00:05 12/06/19 00:05 Labs: Abnormal Lab Results - Last 24 Hours (Table) 12/06/19 12/06/19 12/06/19 Range/Units 00:05 00:05 01:05 RBC 2.47 L (3.80-5.40) m/uL Hgb 9.3 L (11.4-16.0) gm/dL Hct 28.1 L (34.0-46.0) % MCV 113.9 H (80.0-100.0) fL MCH 37.8 H (25.0-35.0) pg Plt Count 56 L (150-450) k/uL Macrocytosis Marked A Sodium 134 L (137-145) mmol/L BUN 23 H (7-17) mg/dL Creatinine 1.42 H (0.52-1.04) mg/dL Glucose 100 H (74-99) mg/dL Urine Appearance Cloudy H (Clear) Urine Nitrite Positive H (Negative) Ur Leukocyte Esterase Trace H (Negative) Urine Bacteria Occasional H (None) /hpf Urine Mucus Rare H (None) /hpf Thrombosis Risk Factor Assmnt - Choose All That Apply Any of the Below Risk Factors Present?: Yes Each Factor Represents 1 point: Obesity (BMI >25) Each Risk Factor Represents 3 Points: Age 75 years or older Other congenital or acquired thrombophilia - If yes, enter type in comment: No Thrombosis Risk Factor Assessment Total Risk Factor Score: 4 Thrombosis Risk Factor Assessment Level: Moderate Risk Assessment and Plan Plan: 1. Acute abdominal pain most likely secondary to urinary tract infection. 2. Intrathoracic stomach found on CAT scan with history of large hiatal hernia on last EGD. Cardiothoracic consult appreciated. No plan for surgical intervention. 3. History of lower GI bleed. 2. Chronic thrombocytopenia under the care of oncology. 5. Glaucoma. 6. Hypertension. 7. Gout, chronic. 8. Chronic kidney disease stage 3b. Patient placed as an observation status. Discharge plan: home Discharge Medication List Allopurinol [Zyloprim] 100 mg PO DAILY 04/06/18 [History] Carvedilol [Coreg] 12.5 mg PO BID 04/06/18 [History] Norman/D3/Mag11/Zinc/Adult Neuropsychologist/Son/Bor [Caltrate 600+D Plus Tablet] 1 tab PO DAILY 04/07/18 [History] Dorzolamide/Timolol/Pf [Cosopt Pf 2%/5% Ophth Droperette] 1 drop RIGHT EYE BID 04/07/18 [History] Latanoprost Ophth [Xalatan 0.005%] 1 drop BOTH EYES HS 04/07/18 [History] Cholecalciferol [Vitamin D3] 1,000 unit PO DAILY 12/15/18 [History] Magnesium 400 mg PO BID 12/15/18 [History] traMADol HCL [Ultram] 50 mg PO TID PRN 12/15/18 [History] Cephalexin [Keflex] 250 mg PO Q12HR #6 capsule 12/06/19 [Rx] Midodrine [ProAmatine] 5 mg PO BID PRN 12/06/19 [History] Impression and plan of care have been directed as dictated by the signing physician. Tarah Santiago nurse practitioner acting as scribe for signing physician.
== END 2019-12-06 16:44 | disposition home or self-care (01) ==
LOC: EC 23:35 → INTOOBSV 12-06 01:38 → 5NMEDONC 12-06 01:38 → UNDODISIN 12-06 16:44
PROVIDERS: ADMIT Internal Medicine; ATTEND Internal Medicine
DX: R10.13 Epigastric pain (principal); I12.9 Hypertensive chronic kidney disease with stage 1 through stage 4 chronic kidney disease, or unspecified chronic kidney disease; H40.9 Unspecified glaucoma; N18.3 Chronic kidney disease, stage 3 (moderate); D46.9 Myelodysplastic syndrome, unspecified; K44.9 Diaphragmatic hernia without obstruction or gangrene; K57.30 Diverticulosis of large intestine without perforation or abscess without bleeding; M1A.9XX0 Chronic gout, unspecified, without tophus (tophi); K55.9 Vascular disorder of intestine, unspecified; D69.6 Thrombocytopenia, unspecified; Z87.19 Personal history of other diseases of the digestive system; Z87.891 Personal history of nicotine dependence; Z79.899 Other long term (current) drug therapy; Z79.891 Long term (current) use of opiate analgesic; Z88.1 Allergy status to other antibiotic agents; Z88.8 Allergy status to other drugs, medicaments and biological substances; Z91.048 Other nonmedicinal substance allergy status; E66.9 Obesity, unspecified; Z68.25 Body mass index [BMI] 25.0-25.9, adult; Z96.643 Presence of artificial hip joint, bilateral
CPT/HCPCS: 96374; 96361; 99285; 36415; 93005; 80053; 83605; 83690; 85025; 81001; 71250; 74177; G0378; C9113; Q9967; 96360

== ENCOUNTER 2021-01-06 16:16 | Observation (INO) | payer MEDICARE ==
[2021-01-06] MEDS ORDERED: ACETAMINOPHEN TAB 500 MG TAB PO STA (17:39)
--- NOTE | 2021-01-06 17:42 | ED ---
General Adult HPI - General Chief complaint: Fever Stated complaint: SOB Time Seen by Provider: 01/06/21 17:20 Source: patient, EMS, RN notes reviewed Mode of arrival: EMS Limitations: no limitations - History of Present Illness Initial comments: Patient is a pleasant 85-year-old female presenting to the emergency Department with complaints of fever. Onset of symptoms was 2-3 days ago. Patient does complain of cough with mild shortness of breath. No dysuria or abdominal pain. Patient does feel generally weak and achy. No isolated area of weakness. - Related Data Home Medications Medication Instructions Recorded Confirmed Carvedilol [Coreg] 12.5 mg PO BID 04/06/18 01/06/21 allopurinoL [Zyloprim] 100 mg PO DAILY 04/06/18 01/06/21 Latanoprost Ophth [Xalatan 0.005%] 1 drop BOTH EYES HS 04/07/18 01/06/21 traMADol HCL [Ultram] 50 mg PO TID PRN 12/15/18 01/06/21 Dorzolamide-Timol 2.23%/0.68% 1 drop RIGHT EYE BID 01/06/21 01/06/21 [Cosopt] Famotidine [Pepcid] 20 mg PO DAILY 01/06/21 01/06/21 Metoclopramide [Reglan] 5 mg PO BID-W/MEALS PRN 01/06/21 01/06/21 Metoclopramide [Reglan] 5 mg PO HS PRN 01/06/21 01/06/21 Allergies Allergy/AdvReac Type Severity Reaction Status Date / Time adhesive tape Allergy Unknown Verified 01/06/21 19:23 dexamethasone Allergy Unknown Verified 01/06/21 19:23 neomycin Allergy Unknown Verified 01/06/21 19:23 polymyxin B Allergy Unknown Verified 01/06/21 19:23 Review of Systems ROS Statement: Those systems with pertinent positive or pertinent negative responses have been documented in the HPI. ROS Other: All systems not noted in ROS Statement are negative. Constitutional: Reports: fever, chills Eyes: Denies: eye pain ENT: Denies: ear pain Respiratory: Reports: cough, dyspnea Cardiovascular: Denies: chest pain Endocrine: Reports: fatigue Gastrointestinal: Denies: abdominal pain Genitourinary: Denies: dysuria Musculoskeletal: Denies: back pain Skin: Denies: rash Neurological: Denies: headache Past Medical History Past Medical History: Hypertension Additional Past Medical History / Comment(s): glaucoma, gout, anemia, thrombocytopenia, diverticulosis, ischemic colitis History of Any Multi-Drug Resistant Organisms: None Reported Past Surgical History: Joint Replacement, Orthopedic Surgery Additional Past Surgical History / Comment(s): Partial right hip replacement, bilateral cataract removal and intraocular lens implants Past Psychological History: No Psychological Hx Reported Smoking Status: Former smoker Past Alcohol Use History: None Reported Past Drug Use History: None Reported - Past Family History Father Additional Family Medical History / Comment(s): Father in his 60s Mother Additional Family Medical History / Comment(s): Mother in her 90s from old age. Patient has 1 sister with no major medical problems. Patient does not have any brothers or children. General Exam Limitations: no limitations General appearance: alert, in no apparent distress Head exam: Present: normocephalic Eye exam: Present: normal appearance, PERRL ENT exam: Present: normal exam Neck exam: Present: normal inspection. Absent: meningismus Respiratory exam: Present: normal lung sounds bilaterally Cardiovascular Exam: Present: regular rate, normal rhythm GI/Abdominal exam: Present: soft. Absent: tenderness Extremities exam: Present: normal inspection. Absent: pedal edema, calf tenderness Back exam: Present: normal inspection. Absent: tenderness Neurological exam: Present: alert. Absent: motor sensory deficit Psychiatric exam: Present: normal affect, normal mood Skin exam: Present: normal color Course Vital Signs 01/06/21 01/06/21 01/06/21 17:20 18:31 19:46 Temperature 101.7 F H 99.8 F H Pulse Rate 75 72 71 Respiratory 18 18 18 Rate Blood Pressure 144/65 144/63 134/74 O2 Sat by Pulse 98 99 97 Oximetry 01/06/21 21:33 Temperature Pulse Rate 71 Respiratory 18 Rate Blood Pressure 136/74 O2 Sat by Pulse 98 Oximetry EKG Findings - EKG Comments: EKG Findings:: Sinus rhythm with rate of 72. NC 14. QRS 72. QT 354. QTC 387. Normal axis. Normal QRS. No acute ST change. Medical Decision Making - Medical Decision Making Patient reevaluated and updated. Case was discussed Dr. Noble who would like his patient admitted secondary to her history. - Lab Data Result diagrams: 01/06/21 18:32 01/06/21 18:32 Lab Results 01/06/21 01/06/21 01/06/21 Range/Units 18:32 18:32 18:32 WBC 4.0 (3.8-10.6) k/uL RBC 2.74 L (3.80-5.40) m/uL Hgb 10.5 L (11.4-16.0) gm/dL Hct 30.3 L (34.0-46.0) % MCV 110.7 H (80.0-100.0) fL MCH 38.3 H (25.0-35.0) pg MCHC 34.6 (31.0-37.0) g/dL RDW 14.2 (11.5-15.5) % Plt Count 42 L (150-450) k/uL MPV 9.2 Neutrophils % 75 % Lymphocytes % 14 % Monocytes % 8 % Eosinophils % 0 % Basophils % 0 % Neutrophils # 3.0 (1.3-7.7) k/uL Lymphocytes # 0.6 L (1.0-4.8) k/uL Monocytes # 0.3 (0-1.0) k/uL Eosinophils # 0.0 (0-0.7) k/uL Basophils # 0.0 (0-0.2) k/uL Manual Slide Review Performed Macrocytosis Marked A PT 10.5 (9.0-12.0) sec INR 1.0 (<1.2) APTT 20.4 L (22.0-30.0) sec Sodium 133 L (137-145) mmol/L Potassium 4.3 (3.5-5.1) mmol/L Chloride 102 (98-107) mmol/L Carbon Dioxide 28 (22-30) mmol/L Anion Gap 3 mmol/L BUN 21 H (7-17) mg/dL Creatinine 1.38 H (0.52-1.04) mg/dL Est GFR (CKD-EPI)AfAm 40 (>60 ml/min/1.73 sqM) Est GFR (CKD-EPI)NonAf 34 (>60 ml/min/1.73 sqM) Glucose 97 (74-99) mg/dL Plasma Lactic Acid Kimani (0.7-2.0) mmol/L Calcium 9.7 (8.4-10.2) mg/dL Magnesium 1.7 (1.6-2.3) mg/dL Total Bilirubin 0.8 (0.2-1.3) mg/dL AST 27 (14-36) U/L ALT 11 (4-34) U/L Alkaline Phosphatase 65 (38-126) U/L Lactate Dehydrogenase 455 (313-618) U/L C-Reactive Protein 15.8 H (<1.0) mg/dL Total Protein 6.4 (6.3-8.2) g/dL Albumin 3.5 (3.5-5.0) g/dL Urine Color Urine Appearance (Clear) Urine pH (5.0-8.0) Ur Specific Mikado (1.001-1.035) Urine Protein (Negative) Urine Glucose (UA) (Negative) Urine Ketones (Negative) Urine Blood (Negative) Urine Nitrite (Negative) Urine Bilirubin (Negative) Urine Urobilinogen (<2.0) mg/dL Ur Leukocyte Esterase (Negative) Urine RBC (0-5) /hpf Urine WBC (0-5) /hpf Urine WBC Clumps (None) /hpf Ur Squamous Epith Cells (0-4) /hpf Amorphous Sediment (None) /hpf Urine Bacteria (None) /hpf Hyaline Casts (0-2) /lpf Coronavirus (PCR) (Not Detectd) 01/06/21 01/06/21 01/06/21 Range/Units 18:32 18:32 21:33 WBC (3.8-10.6) k/uL RBC (3.80-5.40) m/uL Hgb (11.4-16.0) gm/dL Hct (34.0-46.0) % MCV (80.0-100.0) fL MCH (25.0-35.0) pg MCHC (31.0-37.0) g/dL RDW (11.5-15.5) % Plt Count (150-450) k/uL MPV Neutrophils % % Lymphocytes % % Monocytes % % Eosinophils % % Basophils % % Neutrophils # (1.3-7.7) k/uL Lymphocytes # (1.0-4.8) k/uL Monocytes # (0-1.0) k/uL Eosinophils # (0-0.7) k/uL Basophils # (0-0.2) k/uL Manual Slide Review Macrocytosis PT (9.0-12.0) sec INR (<1.2) APTT (22.0-30.0) sec Sodium (137-145) mmol/L Potassium (3.5-5.1) mmol/L Chloride (98-107) mmol/L Carbon Dioxide (22-30) mmol/L Anion Gap mmol/L BUN (7-17) mg/dL Creatinine (0.52-1.04) mg/dL Est GFR (CKD-EPI)AfAm (>60 ml/min/1.73 sqM) Est GFR (CKD-EPI)NonAf (>60 ml/min/1.73 sqM) Glucose (74-99) mg/dL Plasma Lactic Acid Kimani 0.8 (0.7-2.0) mmol/L Calcium (8.4-10.2) mg/dL Magnesium (1.6-2.3) mg/dL Total Bilirubin (0.2-1.3) mg/dL AST (14-36) U/L ALT (4-34) U/L Alkaline Phosphatase (38-126) U/L Lactate Dehydrogenase (313-618) U/L C-Reactive Protein (<1.0) mg/dL Total Protein (6.3-8.2) g/dL Albumin (3.5-5.0) g/dL Urine Color Yellow Urine Appearance Cloudy H (Clear) Urine pH 6.0 (5.0-8.0) Ur Specific Mikado 1.018 (1.001-1.035) Urine Protein 1+ H (Negative) Urine Glucose (UA) Negative (Negative) Urine Ketones Trace H (Negative) Urine Blood Small H (Negative) Urine Nitrite Positive H (Negative) Urine Bilirubin Negative (Negative) Urine Urobilinogen <2.0 (<2.0) mg/dL Ur Leukocyte Esterase Moderate H (Negative) Urine RBC 5 (0-5) /hpf Urine WBC 74 H (0-5) /hpf Urine WBC Clumps Few H (None) /hpf Ur Squamous Epith Cells 7 H (0-4) /hpf Amorphous Sediment Few H (None) /hpf Urine Bacteria Many H (None) /hpf Hyaline Casts 3 H (0-2) /lpf Coronavirus (PCR) Not Detected (Not Detectd) - Radiology Data Radiology results: image reviewed (Chest x-ray shows large hiatal hernia. No acute process.) Disposition Clinical Impression: Urinary tract infection Disposition: ADMITTED IP TO THIS HOSP Is patient prescribed a controlled substance at d/c from ED?: No Referrals: Golden Noble MD [Primary Care Provider] - 1-2 days Decision Time: 22:56
[2021-01-06 18:48] LABS: Basophils % (A) 0 %; Eosinophils % (A) 0 %; HCT 30.3 % (34.0-46.0); HGB 10.5 gm/dL (11.4-16.0); Lymphocytes # (A) 0.6 k/uL (1.0-4.8); Lymphocytes % (A) 14 %; MCH 38.3 pg (25.0-35.0); MCHC 34.6 g/dL (31.0-37.0); MCV 110.7 fL (80.0-100.0); Macrocytosis Marked; Mean Platelet Volume 9.2; Monocytes # (A) 0.3 k/uL (0-1.0); Monocytes % (A) 8 %; Neutrophils % (A) 75 %; RBC 2.74 m/uL (3.80-5.40); RDW 14.2 % (11.5-15.5)
[2021-01-06 18:59] LABS: Albumin 3.5 g/dL (3.5-5.0); Calcium 9.7 mg/dL (8.4-10.2); Magnesium 1.7 mg/dL (1.6-2.3); Potassium 4.3 mmol/L (3.5-5.1); Total Bilirubin 0.8 mg/dL (0.2-1.3); Total Protein 6.4 g/dL (6.3-8.2)
[2021-01-06 19:04] LABS: Platelet Count 42 k/uL (150-450)
[2021-01-06 19:08] LABS: Prothrombin Time 10.5 sec (9.0-12.0)
[2021-01-06 19:10] LABS: Partial Thromboplastin Time 20.4 sec (22.0-30.0)
[2021-01-06 19:15] LABS: C Reactive Protein 15.8 mg/dL (<1.0)
--- NOTE | 2021-01-06 20:10 | XR ---
EXAMINATION TYPE: XR chest 1V portable DATE OF EXAM: 01/06/2021 CLINICAL HISTORY: Suspected COVID-19 pneumonia. TECHNIQUE: Portable frontal view of the chest. COMPARISON: 12/15/2018 chest radiograph FINDINGS: Large hiatal hernia. The cardiomediastinal silhouette is within normal limits for size. Pu lmonary vasculature is normal. Chronic interstitial coarsening and emphysematous changes. There is no focal air space opacity, pleural effusion, or pneumothorax seen. The osseous structures are intact. IMPRESSION: 1. No acute cardiopulmonary process. 2. Large hiatal hernia.
[2021-01-06 22:11] LABS: Amorphous Sediment,Urine Few /hpf; Appearance,Urine Cloudy (Clear); Bacteria,Urine Many /hpf; Bilirubin,Urine Negative (Negative); Blood,Urine Small (Negative); Color,Urine Yellow; Glucose,Urine (UA) Negative (Negative); Hyaline Casts,Urine 3 /lpf (0-2); Ketones,Urine Trace (Negative); Leukocyte Esterase,Urine Moderate (Negative); Nitrite,Urine Positive (Negative); Protein,Urine 1+ (Negative); RBC,Urine 5 /hpf (0-5); Specific Gravity,Urine 1.018 (1.001-1.035); Squamous Epithelial Cell,Urine 7 /hpf (0-4); Urobilinogen,Urine <2.0 mg/dL (<2.0); WBC,Urine 74 /hpf (0-5)
[2021-01-06] MEDS ORDERED: NALOXONE 0.4 MG/ML 1 ML VIAL IV PRN (22:58)
[2021-01-06] MEDS ORDERED: ACETAMINOPHEN TAB 325 MG TAB PO PRN (22:58)
[2021-01-07 01:35] LABS: Ferritin 112.1 ng/mL (10.0-291.0)
[2021-01-07 04:22] LABS: Calcium 9.5 mg/dL (8.4-10.2); Potassium 4.3 mmol/L (3.5-5.1)
[2021-01-07 05:59] LABS: MCH 36.4 pg (25.0-35.0); MCHC 32.2 g/dL (31.0-37.0); MCV 113.1 fL (80.0-100.0); Macrocytosis Marked; Mean Platelet Volume 9.2; RBC 2.74 m/uL (3.80-5.40); WBC 3.8 k/uL (3.8-10.6)
[2021-01-07 06:28] LABS: Platelet Count 30 k/uL (150-450)
[2021-01-07] MEDS ORDERED: traMADol 50 MG TAB PO PRN (08:03)
[2021-01-07] MEDS ORDERED: METOCLOPRAMIDE 5 MG TAB PO PRN ×2 (08:03)
[2021-01-07] MEDS: carvediloL 12.5 MG TAB PO SCH ×2 (09:14→21:37)
[2021-01-07] MEDS: SODIUM CHLORIDE 0.9% 1,000 ML IV SCH ×4 (09:14→21:37)
[2021-01-07] MEDS: allopurinoL 100 MG TAB PO SCH (09:14)
[2021-01-07] MEDS: FAMOTIDINE 20 MG TAB PO SCH (13:02)
[2021-01-07] MEDS: DORZOLAMIDE-TIMOLOL 2.23%/0.68 10ML BTL RIGHT EYE SCH ×2 (17:40→21:37)
[2021-01-07] MEDS: LATANOPROST 0.005% OPHTH DROPS 2.5 ML BTL BOTH EYES SCH (21:37)
[2021-01-08] MEDS: DORZOLAMIDE-TIMOLOL 2.23%/0.68 10ML BTL RIGHT EYE SCH ×2 (07:47→19:52)
[2021-01-08] MEDS: carvediloL 12.5 MG TAB PO SCH ×2 (07:47→19:51)
[2021-01-08] MEDS: allopurinoL 100 MG TAB PO SCH (07:47)
[2021-01-08] MEDS: FAMOTIDINE 20 MG TAB PO SCH (07:47)
[2021-01-08 09:01] LABS: Basophils % (A) 0 %; Eosinophils % (A) 1 %; HCT 31.5 % (34.0-46.0); Lymphocytes # (A) 0.8 k/uL (1.0-4.8); Lymphocytes % (A) 30 %; MCH 36.6 pg (25.0-35.0); MCHC 31.9 g/dL (31.0-37.0); Macrocytosis Marked; Mean Platelet Volume 8.7; Monocytes # (A) 0.2 k/uL (0-1.0); Monocytes % (A) 8 %; Neutrophils # (A) 1.4 k/uL (1.3-7.7); Neutrophils % (A) 56 %; RBC 2.74 m/uL (3.80-5.40); RDW 15.1 % (11.5-15.5); WBC 2.6 k/uL (3.8-10.6)
[2021-01-08 09:11] LABS: African American GFR (CKD) 55 (>60 ml/min/1.73 sqM); Anion Gap 5 mmol/L; Blood Urea Nitrogen 17 mg/dL (7-17); Calcium 9.6 mg/dL (8.4-10.2); Carbon Dioxide 26 mmol/L (22-30); Chloride 105 mmol/L (98-107); Glucose 100 mg/dL (74-99); Non-African American GFR(CKD) 48 (>60 ml/min/1.73 sqM); Potassium 4.1 mmol/L (3.5-5.1); Sodium 136 mmol/L (137-145)
[2021-01-08 09:17] LABS: Platelet Count 37 k/uL (150-450)
[2021-01-08] MEDS: SODIUM CHLORIDE 0.9% 1,000 ML IV SCH ×3 (11:28→19:53)
[2021-01-08] MEDS: AMMONIUM LACTATE 12% LOTION 225 GM BTL TOPICAL SCH ×2 (11:29→19:52)
[2021-01-08 13:44] LABS: Lymphocytes # (M) 0.78 k/uL (1.0-4.8); Monocytes # (M) 0.39 k/uL (0-1.0); Neutrophils # (M) 1.43 k/uL (1.3-7.7); Neutrophils % (M) 55 %; Nucleated Red Blood Cells 0 /100 WBC (0-0); Total Cells Counted 100
[2021-01-08 13:45] LABS: Anisocytosis (M) Present
--- NOTE | 2021-01-08 15:40 | P.HPIM ---
History of Present Illness H&P Date: 01/06/21 Chief Complaint: fever HISTORY OF PRESENT ILLNESS: This is an 85-year-old female patient with past history of hypertension, glaucoma, chronic kidney disease stage IIIB, chronic gout, chronic anemia with history of acute GI bleed secondary to acute ischemic colitis and gastritis. She presented to [facility] emergency center due to fever that have been going on for 2-3 days. She also had cough and mild shortness of breath. She denied dysuria, no abdominal pain. There was generalized weakness and muscle aches. Temperature was 101.7, heart rate 75, blood pressure 144/65, pulse ox 90% on room air. EKG sinus rhythm with no acute ST changes. WBC 4, hemoglobin 10.5, platelet count 42. Sodium 133, potassium 4.3, chloride 102, CO2 28, BUN 21 and creatinine 1.38, blood sugar 97. Liver function tests were normal. Magnesium 1.7. C-reactive protein 15.8. LDH 455. Lactic acid 0.8. Urinalysis cloudy with nitrate positive, leukoesterase moderate, WBC 74, squamous cells 7, few WBC clumps. Many bacteria. Coronavirus PCR not detected. Chest x-ray reveals no acute cardiopulmonary process. Large hiatal hernia. Patient was placed in the observation unit and started on Rocephin, urine and blood culture obtained. REVIEW OF SYSTEMS: Constitutional: No documented fever, no chills, no night sweats. No weight change. No weakness, fatigue or lethargy. No daytime sleepiness. EENT: No headache. No blurred vision or double vision, no loss of vision. No loss of Hearing, no ringing in the ears, no dizziness. No nasal drainage or congestion. No epistaxis. No sore throat. Lungs: No shortness of breath, no cough, no sputum production. No wheezing. Reports dyspnea with activity. Cardiovascular: No chest pain, no lower extremity edema. No palpitations. No paroxysmal nocturnal dyspnea. No orthopnea. No lightheadedness or dizziness. No syncopal episodes. Abdominal: Reports abdominal pain. No nausea, vomiting. No diarrhea. No constipation. No bloody or tarry stools reports loss of appetite. Genitourinary: No dysuria, increased frequency, urgency. No urinary retention. Musculoskeletal: No myalgias. No muscle weakness, no gait dysfunction, no frequent falls. No back pain. No neck pain. Integumentary: No wounds, no lesions. No rash or pruritus. No unusual bru ising. No change in hair or nails. Neurologic: No aphasia. No facial droop. No change in mentation. No head injury. No headache. No paralysis. No paresthesia. Psychiatric: No depression. No anxiety. No mood swings. Endocrine: No abnormal blood sugars. No weight change. PAST MEDICAL HISTORY: Hypertension, glaucoma, chronic gout, anemia, myelodysplasia, chronic kidney disease stage III A, peptic ulcer disease, glaucoma, osteoarthritis, scoliosis. PAST SURGICAL HISTORY: Partial right hip replacement, bilateral cataract removal and intraocular lens implants, peptic ulcer disease surgery, bone marrow biopsy, SOCIAL HISTORY: Patient was a smoker one pack per day for 40 years and quit 13 years ago. She drinks alcohol rarely. She denies any marijuana or illicit drug use. She does not require CPAP, oxygen, nebulizer at home. FAMILY HISTORY: Father at the age of 69 from CAD,. Mother in her 90s from old age and congestive heart failure, Patient has one sister with thypertension patient does not have any others. No children. PHYSICAL EXAMINATION: General: This is an 85-year-old female. She is resting on the ER stretcher and appears to be uncomfortable. No acute respiratory distress. HEENT: Head is atraumatic, normocephalic, pupils were equal round reactive to light and recommendation, extraocular muscle movement were intact, sclera nonicteric, conjunctivae were pale, mucous membranes of the mouth are somewhat dry. Neck: Supple, no JVP, normal carotid upstroke bilaterally, no lymphadenopathy. Chest: Decreased breath sounds at the bases, few rhonchi, no extremity wheezes, no chest wall tenderness, no intercostal retractions. Heart: First heart sound is normal, second heart sounds normal Abdomen: Soft, nontender, nondistended, positive bowel sounds. Extremities: There is no edema no calf tenderness DP +2 bilaterally. Neurologic examination: Patient is awake alert and oriented lert and oriented x3, cranial nerves II-12 appear grossly intact, muscle power were 5 out of 5 in upper extremities and 5 out of 5 in bilateral lower extremities, deep tendon reflexes normal bilaterally. ASSESSMENT AND PLAN: 1. UTI with SIRS. Patient started on Rocephin 1 g IV piggyback daily, urine culture, blood culture, IV fluid 0.9 normal saline at 75 mL per hour. Patient to be admitted to [facility] floor. 2. Hypertension and hypertensive cardio vascular disease. Continue carvedilol 12.5 mg orally twice every day. 3. Glaucoma. Continue current eyedrops. 4. History of GI bleed secondary to acute ischemic colitis and gastritis. 5. 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 Hemoglobin is stable. 6. 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 7. Chronic gout. continue allopurinol 100 mg orally once every day. 8. Chronic kidney disease stage IIIB. Avoid hypotension, nephrotoxic agents. 9. GI prophylaxis. Continue Pepcid 20 mg daily. 10. DVT prophylaxis. SCDs and CHANDRIKA hose. No heparin due to thrombocytopenia. 11. Admitted to inpatient. Estimate a length of stay 2 midnights. 12. Patient is full code. DISCHARGE PLAN: [facility] for subacute rehab Past Medical History Past Medical History: Hypertension Additional Past Medical History / Comment(s): glaucoma, gout, anemia, thrombocytopenia, diverticulosis, ischemic colitis History of Any Multi-Drug Resistant Organisms: None Reported Past Surgical History: Joint Replacement, Orthopedic Surgery Additional Past Surgical History / Comment(s): Partial right hip replacement, bilateral cataract removal and intraocular lens implants Past Psychological History: No Psychological Hx Reported Smoking Status: Former smoker Past Alcohol Use History: None Reported Past Drug Use History: None Reported - Past Family History Father Additional Family Medical History / Comment(s): Father in his 60s Mother Additional Family Medical History / Comment(s): Mother in her 90s from old age. Patient has 1 sister with no major medical problems. Patient does not have any brothers or children. Medications and Allergies Home Medications Medication Instructions Recorded Confirmed Type Carvedilol [Coreg] 12.5 mg PO BID 04/06/18 01/06/21 History allopurinoL [Zyloprim] 100 mg PO DAILY 04/06/18 01/06/21 History Latanoprost Ophth [Xalatan 0.005%] 1 drop BOTH EYES HS 04/07/18 01/06/21 History traMADol HCL [Ultram] 50 mg PO TID PRN 12/15/18 01/06/21 History Dorzolamide-Timol 2.23%/0.68% 1 drop RIGHT EYE BID 01/06/21 01/06/21 History [Cosopt] Famotidine [Pepcid] 20 mg PO DAILY 01/06/21 01/06/21 History Metoclopramide [Reglan] 5 mg PO BID-W/MEALS PRN 01/06/21 01/06/21 History Metoclopramide [Reglan] 5 mg PO HS PRN 01/06/21 01/06/21 History Allergies Allergy/AdvReac Type Severity Reaction Status Date / Time adhesive tape Allergy Unknown Verified 01/06/21 19:23 dexamethasone Allergy Unknown Verified 01/06/21 19:23 neomycin Allergy Unknown Verified 01/06/21 19:23 polymyxin B Allergy Unknown Verified 01/06/21 19:23 Physical Exam Vitals: Vital Signs Temp Pulse Resp BP Pulse Ox 01/07/21 08:11 98.6 F 65 18 160/78 100 01/07/21 05:00 79 21 151/76 99 01/07/21 04:00 74 20 151/77 99 01/06/21 21:33 71 18 136/74 98 01/06/21 19:46 99.8 F H 71 18 134/74 97 01/06/21 18:31 72 18 144/63 99 01/06/21 17:20 101.7 F H 75 18 144/65 98 Intake and Output 01/06/21 01/07/21 01/07/21 22:59 06:59 14:59 Other: Weight 72.575 kg Results CBC & Chem 7: 01/08/21 08:24 01/08/21 08:24 Labs: Abnormal Lab Results - Last 24 Hours (Table) 01/06/21 01/06/21 01/06/21 Range/Units 18:32 18:32 18:32 RBC 2.74 L (3.80-5.40) m/uL Hgb 10.5 L (11.4-16.0) gm/dL Hct 30.3 L (34.0-46.0) % MCV 110.7 H (80.0-100.0) fL MCH 38.3 H (25.0-35.0) pg Plt Count 42 L (150-450) k/uL Lymphocytes # 0.6 L (1.0-4.8) k/uL Macrocytosis Marked A APTT 20.4 L (22.0-30.0) sec Sodium 133 L (137-145) mmol/L BUN 21 H (7-17) mg/dL Creatinine 1.38 H (0.52-1.04) mg/dL C-Reactive Protein 15.8 H (<1.0) mg/dL Procalcitonin (0.02-0.09) ng/mL Urine Appearance (Clear) Urine Protein (Negative) Urine Ketones (Negative) Urine Blood (Negative) Urine Nitrite (Negative) Ur Leukocyte Esterase (Negative) Urine WBC (0-5) /hpf Urine WBC Clumps (None) /hpf Ur Squamous Epith Cells (0-4) /hpf Amorphous Sediment (None) /hpf Urine Bacteria (None) /hpf Hyaline Casts (0-2) /lpf 01/06/21 01/06/21 01/07/21 Range/Units 18:32 21:33 03:20 RBC (3.80-5.40) m/uL Hgb (11.4-16.0) gm/dL Hct (34.0-46.0) % MCV (80.0-100.0) fL MCH (25.0-35.0) pg Plt Count (150-450) k/uL Lymphocytes # (1.0-4.8) k/uL Macrocytosis APTT (22.0-30.0) sec Sodium 134 L (137-145) mmol/L BUN 23 H (7-17) mg/dL Creatinine 1.21 H (0.52-1.04) mg/dL C-Reactive Protein (<1.0) mg/dL Procalcitonin 7.01 H (0.02-0.09) ng/mL Urine Appearance Cloudy H (Clear) Urine Protein 1+ H (Negative) Urine Ketones Trace H (Negative) Urine Blood Small H (Negative) Urine Nitrite Positive H (Negative) Ur Leukocyte Esterase Moderate H (Negative) Urine WBC 74 H (0-5) /hpf Urine WBC Clumps Few H (None) /hpf Ur Squamous Epith Cells 7 H (0-4) /hpf Amorphous Sediment Few H (None) /hpf Urine Bacteria Many H (None) /hpf Hyaline Casts 3 H (0-2) /lpf 01/07/21 Range/Units 03:20 RBC 2.74 L (3.80-5.40) m/uL Hgb 10.0 L (11.4-16.0) gm/dL Hct 31.0 L (34.0-46.0) % MCV 113.1 H (80.0-100.0) fL MCH 36.4 H (25.0-35.0) pg Plt Count (150-450) k/uL Lymphocytes # (1.0-4.8) k/uL Macrocytosis Marked A APTT (22.0-30.0) sec Sodium (137-145) mmol/L BUN (7-17) mg/dL Creatinine (0.52-1.04) mg/dL C-Reactive Protein (<1.0) mg/dL Procalcitonin (0.02-0.09) ng/mL Urine Appearance (Clear) Urine Protein (Negative) Urine Ketones (Negative) Urine Blood (Negative) Urine Nitrite (Negative) Ur Leukocyte Esterase (Negative) Urine WBC (0-5) /hpf Urine WBC Clumps (None) /hpf Ur Squamous Epith Cells (0-4) /hpf Amorphous Sediment (None) /hpf Urine Bacteria (None) /hpf Hyaline Casts (0-2) /lpf Microbiology - Last 24 Hours (Table) 01/06/21 21:33 Urine Culture - Preliminary Urine,Voided
--- NOTE | 2021-01-08 15:42 | P.PN ---
Subjective Progress Note Date: 01/07/21 HISTORY OF PRESENT ILLNESS: This is an 85-year-old female patient with past history of hypertension, glaucoma, chronic kidney disease stage IIIB, chronic gout, chronic anemia with history of acute GI bleed secondary to acute ischemic colitis and gastritis. She presented to [facility] emergency center due to fever that have been going on for 2-3 days. She also had cough and mild shortness of breath. She denied dysuria, no abdominal pain. There was generalized weakness and muscle aches. Temperature was 101.7, heart rate 75, blood pressure 144/65, pulse ox 90% on room air. EKG sinus rhythm with no acute ST changes. WBC 4, hemoglobin 10.5, platelet count 42. Sodium 133, potassium 4.3, chloride 102, CO2 28, BUN 21 and creatinine 1.38, blood sugar 97. Liver function tests were normal. Magnesium 1.7. C-reactive protein 15.8. LDH 455. Lactic acid 0.8. Urinalysis cloudy with nitrate positive, leukoesterase moderate, WBC 74, squamous cells 7, few WBC clumps. Many bacteria. Coronavirus PCR not detected. Chest x-ray reveals no acute cardiopulmonary process. Large hiatal hernia. Patient was placed in the observation unit and started on Rocephin, urine and blood culture obtained. 01/07: Patient is seen today in the emergency center, waiting for [facility] bed. She has been afebrile, heart rate 65, blood pressure 160/78, pulse ox 100% on room air. Repeat blood work revealed WBC 3.8, hemoglobin 10, platelet count 30. Sodium 134, potassium 4.3, chloride 104, CO2 24, BUN 23 and creatinine 1.21. Blood sugar 79. Blood culture is in progress. Urine culture in progress. Patient is followed by PT and OT as well as clinical case manager for discharge planning. REVIEW OF SYSTEMS: Constitutional: No documented fever, no chills, no night sweats. No weight change. No weakness, fatigue or lethargy. No daytime sleepiness. EENT: No headache. No blurred vision or double vision, no loss of vision. No loss of Hearing, no ringing in the ears, no dizziness. No nasal drainage or congestion. No epistaxis. No sore throat. Lungs: No shortness of breath, no cough, no sputum production. No wheezing. Reports dyspnea with activity. Cardiovascular: No chest pain, no lower extremity edema. No palpitations. No paroxysmal nocturnal dyspnea. No orthopnea. No lightheadedness or dizziness. No syncopal episodes. Abdominal: Reports abdominal pain. No nausea, vomiting. No diarrhea. No constipation. No bloody or tarry stools reports loss of appetite. Genitourinary: No dysuria, increased frequency, urgency. No urinary retention. Musculoskeletal: No myalgias. No muscle weakness, no gait dysfunction, no frequent falls. No back pain. No neck pain. Integumentary: No wounds, no lesions. No rash or pruritus. No unusual bruising. No change in hair or nails. Neurologic: No aphasia. No facial droop. No change in mentation. No head injury. No headache. No paralysis. No paresthesia. Psychiatric: No depression. No anxiety. No mood swings. Endocrine: No abnormal blood sugars. No weight change. PHYSICAL EXAMINATION: General: This is an 85-year-old female. She is resting on the ER stretcher and appears to be uncomfortable. No acute respiratory distress. HEENT: Head is atraumatic, normocephalic, pupils were equal round reactive to light and recommendation, extraocular muscle movement were intact, sclera nonicteric, conjunctivae were pale, mucous membranes of the mouth are somewhat dry. Neck: Supple, no JVP, normal carotid upstroke bilaterally, no lymphadenopathy. Chest: Decreased breath sounds at the bases, few rhonchi, no extremity wheezes, no chest wall tenderness, no intercostal retractions. Heart: First heart sound is normal, second heart sounds normal Abdomen: Soft, nontender, nondistended, positive bowel sounds. Extremities: There is no edema no calf tenderness DP +2 bilaterally. Neurologic examination: Patient is awake alert and oriented lert and oriented x3, cranial nerves II-12 appear grossly intact, muscle power were 5 out of 5 in upper extremities and 5 out of 5 in bilateral lower extremities, deep tendon reflexes normal bilaterally. ASSESSMENT AND PLAN: 1. Febrile illness secondary to acute urinary tract infection. Patient started on Rocephin 1 g IV piggyback daily, urine culture, blood culture, IV fluid 0.9 normal saline at 75 mL per hour. Patient to be admitted to [facility] floor. 2. Hypertension, stable. 3. Glaucoma. Continue current eyedrops. 4. History of GI bleed secondary to ask acute ischemic colitis and gastritis. 5. 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 Hemoglobin is stable. 6. 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 7. Chronic gout. 8. Chronic kidney disease stage IIIB. Avoid hypotension, nephrotoxic agents. 9. GI prophylaxis. Continue Pepcid 20 mg daily. 10. DVT prophylaxis. SCDs and CHANDRIKA hose. No heparin due to thrombocytopenia. DISCHARGE PLAN: [facility] for subacute rehab Objective - Vital Signs Vital signs: Vital Signs Temp 97.1 F L 01/08/21 07:00 Pulse 58 L 01/08/21 07:00 Resp 16 01/08/21 14:00 BP 131/73 01/08/21 07:00 Pulse Ox 97 01/08/21 07:00 Intake & Output 01/07/21 01/08/21 01/08/21 18:59 06:59 18:59 Intake Total 100 560 525 Balance 100 560 525 Intake: IV 525 Sodium Chloride 0.9% 1, 525 000 ml @ 75 mls/hr IV . [id number] ELSA Rx#:[id number] Intake, IV Titration 560 Amount Sodium Chloride 0.9% 1, 560 000 ml @ 75 mls/hr IV . [id number] ELSA Rx#:[id number] Oral 100 Other: Voiding Method Bedpan Bedpan Bedpan Diaper Incontinent # Voids 2 2 - Labs CBC & Chem 7: 01/08/21 08:24 01/08/21 08:24 Labs: Abnormal Lab Results - Last 24 Hours (Table) 01/08/21 01/08/21 Range/Units 08:24 08:24 WBC 2.6 L (3.8-10.6) k/uL RBC 2.74 L (3.80-5.40) m/uL Hgb 10.0 L (11.4-16.0) gm/dL Hct 31.5 L (34.0-46.0) % MCV 115.0 H (80.0-100.0) fL MCH 36.6 H (25.0-35.0) pg Plt Count 37 L (150-450) k/uL Lymphocytes # 0.8 L (1.0-4.8) k/uL Lymphocytes # (Manual) 0.78 L (1.0-4.8) k/uL Macrocytosis Marked A Sodium 136 L (137-145) mmol/L Creatinine 1.05 H (0.52-1.04) mg/dL Glucose 100 H (74-99) mg/dL Microbiology - Last 24 Hours (Table) 01/06/21 21:33 Urine Culture - Preliminary Urine,Voided Gram Neg Bacilli 01/06/21 18:30 Blood Culture - Preliminary Blood No Growth after 24 hours 01/06/21 18:15 Blood Culture - Preliminary Blood No Growth after 24 hours
--- NOTE | 2021-01-08 15:44 | P.PN ---
Subjective Progress Note Date: 01/08/21 HISTORY OF PRESENT ILLNESS: This is an 85-year-old female patient with past history of hypertension, glaucoma, chronic kidney disease stage IIIB, chronic gout, chronic anemia with history of acute GI bleed secondary to acute ischemic colitis and gastritis. She presented to [facility] emergency center due to fever that have been going on for 2-3 days. She also had cough and mild shortness of breath. She denied dysuria, no abdominal pain. There was generalized weakness and muscle aches. Temperature was 101.7, heart rate 75, blood pressure 144/65, pulse ox 90% on room air. EKG sinus rhythm with no acute ST changes. WBC 4, hemoglobin 10.5, platelet count 42. Sodium 133, potassium 4.3, chloride 102, CO2 28, BUN 21 and creatinine 1.38, blood sugar 97. Liver function tests were normal. Magnesium 1.7. C-reactive protein 15.8. LDH 455. Lactic acid 0.8. Urinalysis cloudy with nitrate positive, leukoesterase moderate, WBC 74, squamous cells 7, few WBC clumps. Many bacteria. Coronavirus PCR not detected. Chest x-ray reveals no acute cardiopulmonary process. Large hiatal hernia. Patient was placed in the observation unit and started on Rocephin, urine and blood culture obtained. 01/07: Patient is seen today in the emergency center, waiting for [facility] bed. She has been afebrile, heart rate 65, blood pressure 160/78, pulse ox 100% on room air. Repeat blood work revealed WBC 3.8, hemoglobin 10, platelet count 30. Sodium 134, potassium 4.3, chloride 104, CO2 24, BUN 23 and creatinine 1.21. Blood sugar 79. Blood culture is in progress. Urine culture in progress. Patient is followed by PT and OT as well as telephonic case manager for discharge planning. 01/09: Blood cultures no growth after 24 hours 2 specimens. Urine culture is gram-negative bacilli and sensitivity not available. Patient continued on Rocephin. She is denying any new complaints. No abdominal pain. No blood in her stools. She has been afebrile, heart rate 62, blood pressure 129/64, pulse ox 97% on 2 L nasal cannula. Anticipate probable discharge to [facility] tomorrow. REVIEW OF SYSTEMS: Constitutional: No documented fever, no chills, no night sweats. No weight change. No weakness, fatigue or lethargy. No daytime sleepiness. EENT: No headache. No blurred vision or double vision, no loss of vision. No loss of Hearing, no ringing in the ears, no dizziness. No nasal drainage or congestion. No epistaxis. No sore throat. Lungs: No shortness of breath, no cough, no sputum production. No wheezing. Reports dyspnea with activity. Cardiovascular: No chest pain, no lower extremity edema. No palpitations. No paroxysmal nocturnal dyspnea. No orthopnea. No lightheadedness or dizziness. No syncopal episodes. Abdominal: Denies abdominal pain. No nausea, vomiting. No diarrhea. No constipation. No bloody or tarry stools reports loss of appetite. Genitourinary: No dysuria, increased frequency, urgency. No urinary retention. Musculoskeletal: No myalgias. No muscle weakness, no gait dysfunction, no frequent falls. No back pain. No neck pain. Integumentary: No wounds, no lesions. No rash or pruritus. No unusual bruising. No change in hair or nails. Neurologic: No aphasia. No facial droop. No change in mentation. No head injury. No headache. No paralysis. No paresthesia. Psychiatric: No depression. No anxiety. No mood swings. Endocrine: No abnormal blood sugars. No weight change. PHYSICAL EXAMINATION: General: This is an 85-year-old female. She is resting on the ER stretcher and appears to be uncomfortable. No acute respiratory distress. HEENT: Head is atraumatic, normocephalic, pupils were equal round reactive to light and recommendation, extraocular muscle movement were intact, sclera nonicteric, conjunctivae were pale, mucous membranes of the mouth are somewhat dry. Neck: Supple, no JVP, normal carotid upstroke bilaterally, no lymphadenopathy. Chest: Decreased breath sounds at the bases, few rhonchi, no extremity wheezes, no chest wall tenderness, no intercostal retractions. Heart: First heart sound is normal, second heart sounds normal Abdomen: Soft, nontender, nondistended, positive bowel sounds. Extremities: There is no edema no calf tenderness DP +2 bilaterally. Neurologic examination: Patient is awake alert and oriented lert and oriented x3, cranial nerves II-12 appear grossly intact, muscle power were 5 out of 5 in upper extremities and 5 out of 5 in bilateral lower extremities, deep tendon reflexes normal bilaterally. ASSESSMENT AND PLAN: 1. Febrile illness secondary to acute urinary tract infection. Patient started on Rocephin 1 g IV piggyback daily, urine culture, blood culture, IV fluid 0.9 normal saline at 75 mL per hour. Await finalized urine culture. 2. Hypertension, stable. 3. Glaucoma. Continue current eyedrops. 4. History of GI bleed secondary to ask acute ischemic colitis and gastritis. 5. 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 Hemoglobin is stable. 6. 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 7. Chronic gout. 8. Chronic kidney disease stage IIIB. Avoid hypotension, nephrotoxic agents. 9. GI prophylaxis. Continue Pepcid 20 mg daily. 10. DVT prophylaxis. SCDs and CHANDRIKA hose. No heparin due to thrombocytopenia. DISCHARGE PLAN: [facility] for subacute rehab on Objective - Vital Signs Vital signs: Vital Signs Temp 97.9 F 01/08/21 15:00 Pulse 54 L 01/08/21 15:00 Resp 18 01/08/21 15:00 BP 150/75 01/08/21 15:00 Pulse Ox 99 01/08/21 15:00 Intake & Output 01/07/21 01/08/21 01/08/21 18:59 06:59 18:59 Intake Total 100 560 525 Balance 100 560 525 Intake: IV 525 Sodium Chloride 0.9% 1, 525 000 ml @ 75 mls/hr IV . [id number] ELSA Rx#:[id number] Intake, IV Titration 560 Amount Sodium Chloride 0.9% 1, 560 000 ml @ 75 mls/hr IV . [id number] ELSA Rx#:[id number] Oral 100 Other: Voiding Method Bedpan Bedpan Bedpan Diaper Incontinent # Voids 2 2 - Labs CBC & Chem 7: 01/08/21 08:24 01/08/21 08:24 Labs: Abnormal Lab Results - Last 24 Hours (Table) 01/08/21 01/08/21 Range/Units 08:24 08:24 WBC 2.6 L (3.8-10.6) k/uL RBC 2.74 L (3.80-5.40) m/uL Hgb 10.0 L (11.4-16.0) gm/dL Hct 31.5 L (34.0-46.0) % MCV 115.0 H (80.0-100.0) fL MCH 36.6 H (25.0-35.0) pg Plt Count 37 L (150-450) k/uL Lymphocytes # 0.8 L (1.0-4.8) k/uL Lymphocytes # (Manual) 0.78 L (1.0-4.8) k/uL Macrocytosis Marked A Sodium 136 L (137-145) mmol/L Creatinine 1.05 H (0.52-1.04) mg/dL Glucose 100 H (74-99) mg/dL Microbiology - Last 24 Hours (Table) 01/06/21 21:33 Urine Culture - Preliminary Urine,Voided Gram Neg Bacilli 01/06/21 18:30 Blood Culture - Preliminary Blood No Growth after 24 hours 01/06/21 18:15 Blood Culture - Preliminary Blood No Growth after 24 hours
[2021-01-08] MEDS: LATANOPROST 0.005% OPHTH DROPS 2.5 ML BTL BOTH EYES SCH (19:52)
[2021-01-09] MEDS: carvediloL 12.5 MG TAB PO SCH ×2 (08:44→21:02)
[2021-01-09] MEDS: FAMOTIDINE 20 MG TAB PO SCH (08:44)
[2021-01-09] MEDS: allopurinoL 100 MG TAB PO SCH (08:44)
[2021-01-09] MEDS: AMMONIUM LACTATE 12% LOTION 225 GM BTL TOPICAL SCH ×2 (08:48→21:02)
[2021-01-09] MEDS: DORZOLAMIDE-TIMOLOL 2.23%/0.68 10ML BTL RIGHT EYE SCH ×2 (08:48→21:02)
--- NOTE | 2021-01-09 20:45 | P.CONS ---
History of Present Illness - Reason for Consult Consult date: 01/09/21 pancytopenia Requesting physician: Golden Noble - Chief Complaint Fever - History of Present Illness This is a very nice lady who was referred to Dr. Webster because of abnormal protein electrophoresis. She was last seen in the office in 2019. In ,serum immunofixation and SPEP revealed 3 small M-spike (0.1,0.5 and 0.1gm/dl),serum free light chain ratio was 4.77,24 hrs urine did not reveal any monoclonal protein and no significant proteinuria,CMP revealed creatinine of 1.7 (however,it has been elevated at least since ),her CBc revealed mild anemia (hemoglobin of 10.7gm/dl (which has been stable),her B12 was significantly low.She has a known history of hypertension, glaucoma, chronic kidney disease stage IIIB, chronic gout, chronic anemia with history of acute GI bleed secondary to acute ischemic colitis and gastritis. She stated that she had gastric surgery in 2006 for a bleeding ulcer. She was admitted to [facility] in March/2018 for GIB,had EGD/colonoscopy,was found to have thrombocytopenia. She underwent bone marrow biopsy after discharge on 04/21/2018 which revealed very small population of monoclonal B cells,no evidence of MDS,FISH was negative I recommended repeating bone marrow biopsy to make sure there is no evolving MDS,however,she declined and opted for observation She presented to [facility] with complaints of a fever. She also had cough and mild shortness of breath. She is being treated for UTI at the moment. She has chronic pancytopenia, which has decreased further likely related to her active inflammatory/infectious circumstance. Review of Systems All systems: negative Constitutional: Reports as per HPI Past Medical History Past Medical History: Hypertension Additional Past Medical History / Comment(s): glaucoma, gout, anemia, t hrombocytopenia, diverticulosis, ischemic colitis History of Any Multi-Drug Resistant Organisms: None Reported Past Surgical History: Joint Replacement, Orthopedic Surgery Additional Past Surgical History / Comment(s): Partial right hip replacement, bilateral cataract removal and intraocular lens implants Past Anesthesia/Blood Transfusion Reactions: No Reported Reaction Past Psychological History: No Psychological Hx Reported Smoking Status: Former smoker Past Alcohol Use History: None Reported Past Drug Use History: None Reported - Past Family History Father Additional Family Medical History / Comment(s): Father in his 60s Mother Additional Family Medical History / Comment(s): Mother in her 90s from old age. Patient has 1 sister with no major medical problems. Patient does not have any brothers or children. Medications and Allergies Home Medications Medication Instructions Recorded Confirmed Type Carvedilol [Coreg] 12.5 mg PO BID 04/06/18 01/06/21 History allopurinoL [Zyloprim] 100 mg PO DAILY 04/06/18 01/06/21 History Latanoprost Ophth [Xalatan 0.005%] 1 drop BOTH EYES HS 04/07/18 01/06/21 History traMADol HCL [Ultram] 50 mg PO TID PRN 12/15/18 01/06/21 History Dorzolamide-Timol 2.23%/0.68% 1 drop RIGHT EYE BID 01/06/21 01/06/21 History [Cosopt] Famotidine [Pepcid] 20 mg PO DAILY 01/06/21 01/06/21 History Metoclopramide [Reglan] 5 mg PO BID-W/MEALS PRN 01/06/21 01/06/21 History Metoclopramide [Reglan] 5 mg PO HS PRN 01/06/21 01/06/21 History Allergies Allergy/AdvReac Type Severity Reaction Status Date / Time adhesive tape Allergy Unknown Verified 01/06/21 19:23 dexamethasone Allergy Unknown Verified 01/06/21 19:23 neomycin Allergy Unknown Verified 01/06/21 19:23 polymyxin B Allergy Unknown Verified 01/06/21 19:23 Physical Exam Vitals: Vital Signs Temp Pulse Resp BP Pulse Ox 01/09/21 14:04 97.4 F L 55 L 22 167/75 100 01/09/21 07:00 97.5 F L 58 L 24 143/80 98 01/09/21 01:35 16 01/09/21 00:49 97.9 F 50 L 18 134/74 98 Intake and Output 01/09/21 01/09/21 01/09/21 06:59 14:59 22:59 Intake Total 240 Balance 240 Intake: Oral 240 Other: Voiding Method Bedpan Bedpan Diaper Diaper Incontinent Incontinent # Voids 3 1 # Bowel Movements 0 - Constitutional General appearance: cooperative, no acute distress - EENT Eyes: EOMI, PERRLA ENT: hard of hearing, NA/AT - Neck Neck: normal ROM - Respiratory Respiratory: bilateral: diminished - Cardiovascular Rhythm: regularly irregular - Integumentary Integumentary: pale - Musculoskeletal Musculoskeletal: generalized weakness, strength equal bilaterally - Psychiatric Psychiatric: A&O x's 3 Results CBC & Chem 7: 01/08/21 08:24 01/08/21 08:24 Labs: Microbiology - Last 24 Hours (Table) 01/06/21 21:33 Urine Culture - Final Urine,Voided Escherichia coli 01/06/21 18:30 Blood Culture - Preliminary Blood No Growth after 48 hours 01/06/21 18:15 Blood Culture - Preliminary Blood No Growth after 48 hours Assessment and Plan (1) MGUS (monoclonal gammopathy of unknown significance) Current Visit: Yes Status: Acute Code(s): D47.2 - MONOCLONAL GAMMOPATHY SNOMED Code(s): 402351679 (2) B12 deficiency anemia Current Visit: Yes Status: Acute Code(s): D51.9 - VITAMIN B12 DEFICIENCY ANEMIA, UNSPECIFIED SNOMED Code(s): 93870356 (3) Urinary tract infection Current Visit: Yes Status: Acute Code(s): N39.0 - URINARY TRACT INFECTION, SITE NOT SPECIFIED SNOMED Code(s): 64735650 (4) Pancytopenia Current Visit: No Status: Acute Priority: Medium Code(s): D61.818 - OTHER PANCYTOPENIA SNOMED Code(s): 063730170 Plan: Recheck her anemia panel and will supplement as needed. Hold NSAIDS, ASA, Anticoagulation with paltelets less than 50K Monitor for DIC in active infection with decreased blood counts Physician Attest: I have completed the full history and physical and agree with above dictation, dictated as a scribe.
[2021-01-09] MEDS: SODIUM CHLORIDE 0.9% 1,000 ML IV SCH ×2 (21:00→21:03)
[2021-01-09] MEDS: LATANOPROST 0.005% OPHTH DROPS 2.5 ML BTL BOTH EYES SCH (21:02)
[2021-01-10] MEDS: SODIUM CHLORIDE 0.9% 1,000 ML IV SCH ×2 (03:56)
[2021-01-10 06:56] LABS: Prothrombin Time 10.4 sec (9.0-12.0)
[2021-01-10] MEDS: carvediloL 12.5 MG TAB PO SCH (07:33)
[2021-01-10] MEDS: FAMOTIDINE 20 MG TAB PO SCH (07:33)
[2021-01-10] MEDS: allopurinoL 100 MG TAB PO SCH (07:33)
[2021-01-10] MEDS: DORZOLAMIDE-TIMOLOL 2.23%/0.68 10ML BTL RIGHT EYE SCH (07:34)
[2021-01-10] MEDS: AMMONIUM LACTATE 12% LOTION 225 GM BTL TOPICAL SCH (07:34)
[2021-01-10 07:40] LABS: ALT 19 U/L (4-34); AST 25 U/L (14-36); African American GFR (CKD) 59 (>60 ml/min/1.73 sqM); Albumin 2.6 g/dL (3.5-5.0); Alkaline Phosphatase 57 U/L (38-126); Anion Gap 1 mmol/L; Blood Urea Nitrogen 12 mg/dL (7-17); Calcium 9.2 mg/dL (8.4-10.2); Carbon Dioxide 28 mmol/L (22-30); Chloride 108 mmol/L (98-107); Globulin 2.6 g/dL; Glucose 91 mg/dL (74-99); LDH 408 U/L (313-618); Non-African American GFR(CKD) 52 (>60 ml/min/1.73 sqM); Potassium 3.8 mmol/L (3.5-5.1); Sodium 137 mmol/L (137-145); Total Bilirubin 0.3 mg/dL (0.2-1.3); Total Protein 5.2 g/dL (6.3-8.2)
[2021-01-10 07:51] VITALS: RESP 18
--- NOTE | 2021-01-10 08:34 | P.PN ---
Subjective Progress Note Date: 01/09/21 HISTORY OF PRESENT ILLNESS: This is an 85-year-old female patient with past history of hypertension, glaucoma, chronic kidney disease stage IIIB, chronic gout, chronic anemia with history of acute GI bleed secondary to acute ischemic colitis and gastritis. She presented to [facility] emergency center due to fever that have been going on for 2-3 days. She also had cough and mild shortness of breath. She denied dysuria, no abdominal pain. There was generalized weakness and muscle aches. Temperature was 101.7, heart rate 75, blood pressure 144/65, pulse ox 90% on room air. EKG sinus rhythm with no acute ST changes. WBC 4, hemoglobin 10.5, platelet count 42. Sodium 133, potassium 4.3, chloride 102, CO2 28, BUN 21 and creatinine 1.38, blood sugar 97. Liver function tests were normal. Magnesium 1.7. C-reactive protein 15.8. LDH 455. Lactic acid 0.8. Urinalysis cloudy with nitrate positive, leukoesterase moderate, WBC 74, squamous cells 7, few WBC clumps. Many bacteria. Coronavirus PCR not detected. Chest x-ray reveals no acute cardiopulmonary process. Large hiatal hernia. Patient was placed in the observation unit and started on Rocephin, urine and blood culture obtained. 01/07: Patient is seen today in the emergency center, waiting for [facility] bed. She has been afebrile, heart rate 65, blood pressure 160/78, pulse ox 100% on room air. Repeat blood work revealed WBC 3.8, hemoglobin 10, platelet count 30. Sodium 134, potassium 4.3, chloride 104, CO2 24, BUN 23 and creatinine 1.21. Blood sugar 79. Blood culture is in progress. Urine culture in progress. Patient is followed by PT and OT as well as corrections caseworker for discharge planning. 01/08: Blood cultures no growth after 24 hours 2 specimens. Urine culture is gram-negative bacilli and sensitivity not available. Patient continued on Rocephin. She is denying any new complaints. No abdominal pain. No blood in her stools. She has been afebrile, heart rate 62, blood pressure 129/64, pulse ox 97% on 2 L nasal cannula. Anticipate probable discharge to [facility] tomorrow. 01/09: Patient is feeling a lot better, she will be seen in consultation by hemat ology oncology due to her , an thrombocytopenia she follows up with them as an outpatient, she'll be seen by podiatry today for nail clipping, hopefully she will be able to discharge home tomorrow morning 3 REVIEW OF SYSTEMS: Constitutional: No documented fever, no chills, no night sweats. No weight change. No weakness, fatigue or lethargy. No daytime sleepiness. EENT: No headache. No blurred vision or double vision, no loss of vision. No loss of Hearing, no ringing in the ears, no dizziness. No nasal drainage or congestion. No epistaxis. No sore throat. Lungs: No shortness of breath, no cough, no sputum production. No wheezing. Reports dyspnea with activity. Cardiovascular: No chest pain, no lower extremity edema. No palpitations. No paroxysmal nocturnal dyspnea. No orthopnea. No lightheadedness or dizziness. No syncopal episodes. Abdominal: Denies abdominal pain. No nausea, vomiting. No diarrhea. No constipation. No bloody or tarry stools reports loss of appetite. Genitourinary: No dysuria, increased frequency, urgency. No urinary retention. Musculoskeletal: No myalgias. No muscle weakness, no gait dysfunction, no frequent falls. No back pain. No neck pain. Integumentary: No wounds, no lesions. No rash or pruritus. No unusual b ruising. No change in hair or nails. Neurologic: No aphasia. No facial droop. No change in mentation. No head injury. No headache. No paralysis. No paresthesia. Psychiatric: No depression. No anxiety. No mood swings. Endocrine: No abnormal blood sugars. No weight change. PHYSICAL EXAMINATION: General: This is an 85-year-old female. She is resting on the ER stretcher and appears to be uncomfortable. No acute respiratory distress. HEENT: Head is atraumatic, normocephalic, pupils were equal round reactive to light and recommendation, extraocular muscle movement were intact, sclera nonicteric, conjunctivae were pale, mucous membranes of the mouth are somewhat dry. Neck: Supple, no JVP, normal carotid upstroke bilaterally, no lymphadenopathy. Chest: Decreased breath sounds at the bases, few rhonchi, no extremity wheezes, no chest wall tenderness, no intercostal retractions. Heart: First heart sound is normal, second heart sounds normal Abdomen: Soft, nontender, nondistended, positive bowel sounds. Extremities: There is no edema no calf tenderness DP +2 bilaterally. Neurologic examination: Patient is awake alert and oriented lert and oriented x3, cranial nerves II-12 appear grossly intact, muscle power were 5 out of 5 in upper extremities and 5 out of 5 in bilateral lower extremities, deep tendon reflexes normal bilaterally. ASSESSMENT AND PLAN: 1. Febrile illness secondary to acute urinary tract infection. Patient started on Rocephin 1 g IV piggyback daily, urine culture, blood culture, IV fluid 0.9 normal saline at 75 mL per hour. Await finalized urine culture. 2. Hypertension, stable. 3. Glaucoma. Continue current eyedrops. 4. History of GI bleed secondary to ask acute ischemic colitis and gastritis. 5. 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 Hemoglobin is stable. 6. 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 7. Chronic gout. 8. Chronic kidney disease stage IIIB. Avoid hypotension, nephrotoxic agents. 9. GI prophylaxis. Continue Pepcid 20 mg daily. 10. DVT prophylaxis. SCDs and CHANDRIKA hose. No heparin due to thrombocytopenia. DISCHARGE PLAN: [facility] for subacute rehab on Objective - Vital Signs Vital signs: Vital Signs Temp 97.9 F 01/09/21 00:49 Pulse 50 L 01/09/21 00:49 Resp 16 01/09/21 01:35 BP 134/74 01/09/21 00:49 Pulse Ox 98 01/09/21 00:49 Intake & Output 01/08/21 01/09/21 01/09/21 18:59 06:59 18:59 Intake Total 765 460 Balance 765 460 Intake: IV 525 Sodium Chloride 0.9% 1, 525 000 ml @ 75 mls/hr IV . [id number] ELSA Rx#:[id number] Intake, IV Titration 460 Amount Sodium Chloride 0.9% 1, 460 000 ml @ 75 mls/hr IV . [id number] ELSA Rx#:[id number] Oral 240 Other: Voiding Method Bedpan Bedpan Diaper Diaper Incontinent Incontinent # Voids 2 3 - Labs CBC & Chem 7: 01/08/21 08:24 01/10/21 06:07 Labs: Abnormal Lab Results - Last 24 Hours (Table) 01/08/21 01/08/21 Range/Units 08:24 08:24 WBC 2.6 L (3.8-10.6) k/uL RBC 2.74 L (3.80-5.40) m/uL Hgb 10.0 L (11.4-16.0) gm/dL Hct 31.5 L (34.0-46.0) % MCV 115.0 H (80.0-100.0) fL MCH 36.6 H (25.0-35.0) pg Plt Count 37 L (150-450) k/uL Lymphocytes # 0.8 L (1.0-4.8) k/uL Lymphocytes # (Manual) 0.78 L (1.0-4.8) k/uL Macrocytosis Marked A Sodium 136 L (137-145) mmol/L Creatinine 1.05 H (0.52-1.04) mg/dL Glucose 100 H (74-99) mg/dL Microbiology - Last 24 Hours (Table) 01/06/21 21:33 Urine Culture - Final Urine,Voided Escherichia coli 01/06/21 18:30 Blood Culture - Preliminary Blood No Growth after 48 hours 01/06/21 18:15 Blood Culture - Preliminary Blood No Growth after 48 hours
[2021-01-10] MEDS ORDERED: CIPROFLOXACIN HCL 250 MG TAB PO SCH (09:00)
[2021-01-10 10:37] LABS: Basophils # (A) 0 X 10*3/uL (0.00-0.10); Basophils % (A) 0 %; Eosinophils # (A) 0.04 X 10*3/uL (0.04-0.35); Eosinophils % (A) 1.3 %; HCT 25.8 % (37.2-46.3); HGB 8.7 g/dL (12.0-15.0); Lymphocytes # (A) 1.46 X 10*3/uL (0.90-5.00); Lymphocytes % (A) 45.9 %; MCHC 33.7 g/dL (32.0-37.0); MCV 112.7 fL (80.0-97.0); Macrocytosis (M) 2+; Mean Platelet Volume 13.3 fL (9.5-12.2); Monocytes # (A) 0.29 X 10*3/uL (0.20-1.00); Monocytes % (A) 9.1 %; Neutrophils # (A) 1.38 X 10*3/uL (1.80-7.70); Neutrophils % (A) 43.4 %; Platelet Count 35 X 10*3/uL (140-440); RBC 2.29 X 10*6/uL (4.10-5.20); RDW 13.2 % (11.5-14.5); Reticulocyte % 1.55 % (0.10-1.80); WBC 3.18 X 10*3/uL (4.50-10.00)
--- NOTE | 2021-01-10 11:21 | P.GSHP ---
History of Present Illness H&P Date: 01/09/21 Chief Complaint: Painful dystrophic nails 10 painful mycotic nails 10 his is an 85-year-old female patient with past history of hypertension, glaucoma, chronic kidney disease stage IIIB, chronic gout, chronic anemia with history of acute GI bleed secondary to acute ischemic colitis and gastritis. She is being seen today at the request of medicine for treatment of painful thickened dystrophic mycotic nails. Patient is unable to take care of these due to patient systemic disease. She states they've been increasingly painful over the last several months increasing shoes and ambulation She presented to [facility] emergency center due to fever that have been going on for 2-3 days. She also had cough and mild shortness of breath. She denied dysuria, no abdominal pain. There was generalized weakness and muscle aches. Temperature was 101.7, heart rate 75, blood pressure 144/65, pulse ox 90% on room air. EKG sinus rhythm with no acute ST changes. WBC 4, hemoglobin 10.5, platelet count 42. Sodium 133, potassium 4.3, chloride 102, CO2 28, BUN 21 and creatinine 1.38, blood sugar 97. Liver function tests were normal. Magnesium 1.7. C-reactive protein 15.8. LDH 455. Lactic acid 0.8. Urinalysis cloudy with nitrate positive, leukoesterase moderate, WBC 74, squamous cells 7, few WBC clumps. Many bacteria. Coronavirus PCR not detected. Chest x-ray reveals no acute cardiopulmonary process. Large hiatal hernia. Patient was placed in the observation unit and started on Rocephin, urine and blood culture obtained. - Constitutional Constitutional: Denies chills, Denies fever - Cardiovascular Cardiovascular: Denies chest pain, Denies shortness of breath - Musculoskeletal Musculoskeletal: Denies myalgias - Integumentary Comment: Patient has thick and painful mycotic nails 10 subungual debris to the proximal nailfold Integumentary: Denies pruritus, Denies rash Past Medical History Past Medical History: Hypertension Additional Past Medical History / Comment(s): glaucoma, gout, anemia, thrombocytopenia, diverticulosis, ischemic colitis History of Any Multi-Drug Resistant Organisms: None Reported Past Surgical History: Joint Replacement, Orthopedic Surgery Additional Past Surgical History / Comment(s): Partial right hip replacement, bilateral cataract removal and intraocular lens implants Past Anesthesia/Blood Transfusion Reactions: No Reported Reaction Past Psychological History: No Psychological Hx Reported Smoking Status: Former smoker Past Alcohol Use History: None Reported Past Drug Use History: None Reported - Past Family History Father Additional Family Medical History / Comment(s): Father in his 60s Mother Additional Family Medical History / Comment(s): Mother in her 90s from old age. Patient has 1 sister with no major medical problems. Patient does not have any brothers or children. Medications and Allergies Home Medications Medication Instructions Recorded Confirmed Type Carvedilol [Coreg] 12.5 mg PO BID 04/06/18 01/06/21 History allopurinoL [Zyloprim] 100 mg PO DAILY 04/06/18 01/06/21 History Latanoprost Ophth [Xalatan 0.005%] 1 drop BOTH EYES HS 04/07/18 01/06/21 History traMADol HCL [Ultram] 50 mg PO TID PRN 12/15/18 01/06/21 History Dorzolamide-Timol 2.23%/0.68% 1 drop RIGHT EYE BID 01/06/21 01/06/21 History [Cosopt] Famotidine [Pepcid] 20 mg PO DAILY 01/06/21 01/06/21 History Metoclopramide [Reglan] 5 mg PO BID-W/MEALS PRN 01/06/21 01/06/21 History Metoclopramide [Reglan] 5 mg PO HS PRN 01/06/21 01/06/21 History Ciprofloxacin HCl [Cipro] 250 mg PO BID #20 tab 01/10/21 Rx Allergies Allergy/AdvReac Type Severity Reaction Status Date / Time adhesive tape Allergy Unknown Verified 01/06/21 19:23 dexamethasone Allergy Unknown Verified 01/06/21 19:23 neomycin Allergy Unknown Verified 01/06/21 19:23 polymyxin B Allergy Unknown Verified 01/06/21 19:23 Surgical - Exam Vital Signs Temp Pulse Resp BP Pulse Ox 101.7 F H 75 18 144/65 98 01/06/21 17:20 01/06/21 17:20 01/06/21 17:20 01/06/21 17:20 01/06/21 17:20 - Cardiovascular Pedal pulses are diminished bilateral is no digital hair. 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 All inverters everters plantar flexors dorsiflexors grossly intact symmetrical bilateral Results - Labs 01/10/21 06:07 01/10/21 06:07 Abnormal Lab Results - Last 24 Hours (Table) 01/10/21 01/10/21 Range/Units 06:07 06:07 WBC 3.18 L (4.50-10.00) X 10*3/uL RBC 2.29 L (4.10-5.20) X 10*6/uL Hgb 8.7 L (12.0-15.0) g/dL Hct 25.8 L (37.2-46.3) % MCV 112.7 H (80.0-97.0) fL MCH 38.0 H (27.0-32.0) pg Plt Count 35 L (140-440) X 10*3/uL Plt Count Comment A MPV 13.3 H (9.5-12.2) fL Neutrophils # 1.38 L (1.80-7.70) X 10*3/uL Chloride 108 H (98-107) mmol/L Total Protein 5.2 L (6.3-8.2) g/dL Albumin 2.6 L (3.5-5.0) g/dL Microbiology - Last 24 Hours (Table) 01/06/21 18:30 Blood Culture - Preliminary Blood No Growth after 72 hours 01/06/21 18:15 Blood Culture - Preliminary Blood No Growth after 72 hours Diabetes panel 01/10/21 Range/Units 06:07 Sodium 137 (137-145) mmol/L Potassium 3.8 (3.5-5.1) mmol/L Chloride 108 H (98-107) mmol/L Carbon Dioxide 28 (22-30) mmol/L BUN 12 (7-17) mg/dL Creatinine 0.99 (0.52-1.04) mg/dL Glucose 91 (74-99) mg/dL Calcium 9.2 (8.4-10.2) mg/dL AST 25 (14-36) U/L ALT 19 (4-34) U/L Alkaline Phosphatase 57 (38-126) U/L Total Protein 5.2 L (6.3-8.2) g/dL Albumin 2.6 L (3.5-5.0) g/dL Calcium panel 01/10/21 Range/Units 06:07 Calcium 9.2 (8.4-10.2) mg/dL Albumin 2.6 L (3.5-5.0) g/dL Pituitary panel 01/10/21 Range/Units 06:07 Sodium 137 (137-145) mmol/L Potassium 3.8 (3.5-5.1) mmol/L Chloride 108 H (98-107) mmol/L Carbon Dioxide 28 (22-30) mmol/L BUN 12 (7-17) mg/dL Creatinine 0.99 (0.52-1.04) mg/dL Glucose 91 (74-99) mg/dL Calcium 9.2 (8.4-10.2) mg/dL Adrenal panel 01/10/21 Range/Units 06:07 Sodium 137 (137-145) mmol/L Potassium 3.8 (3.5-5.1) mmol/L Chloride 108 H (98-107) mmol/L Carbon Dioxide 28 (22-30) mmol/L BUN 12 (7-17) mg/dL Creatinine 0.99 (0.52-1.04) mg/dL Glucose 91 (74-99) mg/dL Calcium 9.2 (8.4-10.2) mg/dL Total Bilirubin 0.3 (0.2-1.3) mg/dL AST 25 (14-36) U/L ALT 19 (4-34) U/L Alkaline Phosphatase 57 (38-126) U/L Total Protein 5.2 L (6.3-8.2) g/dL Albumin 2.6 L (3.5-5.0) g/dL Assessment and Plan Assessment: Painful mycotic nails 10 with peripheral vascular disease bilateral Plan: Discussed with patient findings and treatment plan. Due to the patient systemic disease and peripheral arterial disease patient would benefit from reduction of these nails. Today these nails were manually debrided 10 removing all mycotic debris possible under this conditions. We discussed with patient mycosis and treatment of mycosis. Patient is to use vicks upon discharge discussed with patient following up with us or another picker operator to prevent further morbidity to the foot. Time with Patient: Less than 30
--- NOTE | 2021-01-10 11:49 | P.PN ---
Subjective Progress Note Date: 01/10/21 Principal diagnosis: Anemia Awaiting anemia work-up plan per primary for patient to be discharge, ok with hematology will follow-up on labs drawn and see in office to provide supplement if replacement needed Objective - Vital Signs Vital signs: Vital Signs Temp 97.8 F 01/10/21 07:50 Pulse 54 L 01/10/21 07:50 Resp 18 01/10/21 08:00 BP 148/78 01/10/21 07:50 Pulse Ox 98 01/10/21 07:50 Intake & Output 01/09/21 01/10/21 01/10/21 18:59 06:59 18:59 Intake Total 240 460 Balance 240 460 Intake: Intake, IV Titration 460 Amount Sodium Chloride 0.9% 1, 460 000 ml @ 75 mls/hr IV . [id number] ELSA Rx#:[id number] Oral 240 Other: Voiding Method Bedpan Bedpan Bedpan Diaper Diaper Diaper Incontinent Incontinent Incontinent # Voids 1 3 # Bowel Movements 0 - Exam - Constitutional General appearance: cooperative, no acute distress - EENT Eyes: EOMI, PERRLA ENT: hard of hearing, NA/AT - Neck Neck: normal ROM - Respiratory Respiratory: bilateral: diminished - Cardiovascular Rhythm: regularly irregular - Integumentary Integumentary: pale - Musculoskeletal Musculoskeletal: generalized weakness, strength equal bilaterally - Psychiatric Psychiatric: A&O x's 3 - Labs CBC & Chem 7: 01/10/21 06:07 01/10/21 06:07 Labs: Abnormal Lab Results - Last 24 Hours (Table) 01/10/21 01/10/21 Range/Units 06:07 06:07 WBC 3.18 L (4.50-10.00) X 10*3/uL RBC 2.29 L (4.10-5.20) X 10*6/uL Hgb 8.7 L (12.0-15.0) g/dL Hct 25.8 L (37.2-46.3) % MCV 112.7 H (80.0-97.0) fL MCH 38.0 H (27.0-32.0) pg Plt Count 35 L (140-440) X 10*3/uL Plt Count Comment A MPV 13.3 H (9.5-12.2) fL Neutrophils # 1.38 L (1.80-7.70) X 10*3/uL Chloride 108 H (98-107) mmol/L Total Protein 5.2 L (6.3-8.2) g/dL Albumin 2.6 L (3.5-5.0) g/dL Microbiology - Last 24 Hours (Table) 01/06/21 18:30 Blood Culture - Preliminary Blood No Growth after 72 hours 01/06/21 18:15 Blood Culture - Preliminary Blood No Growth after 72 hours Assessment and Plan (1) MGUS (monoclonal gammopathy of unknown significance) Status: Acute Code(s): D47.2 - MONOCLONAL GAMMOPATHY SNOMED Code(s): 571459122 (2) B12 deficiency anemia Status: Acute Code(s): D51.9 - VITAMIN B12 DEFICIENCY ANEMIA, UNSPECIFIED SNOMED Code(s): 02029959 (3) Urinary tract infection Status: Acute Code(s): N39.0 - URINARY TRACT INFECTION, SITE NOT SPECIFIED SNOMED Code(s): 97838232 (4) Pancytopenia Status: Acute Priority: Medium Code(s): D61.818 - OTHER PANCYTOPENIA SNOMED Code(s): 223496881 Plan: Macrocytosis and Anemia Pancytopenia Recheck her anemia panel and will supplement as needed. Hold NSAIDS, ASA, Anticoagulation with paltelets less than 50K Follow-up in office to review repeat anemia and follow up in 7-10 days for supplementation, discussed with RN.
[2021-01-10 14:33] VITALS: BP 155/80; PULSE 63; TEMP 97.4
--- NOTE | 2021-01-10 15:04 | P.DS ---
Providers Date of admission: 01/06/21 22:58 Expected date of discharge: 01/10/21 Attending physician: Golden Noble Consults: 01/08/21 08:16 Consult Physician Routine Consulting Provider: River Macdonald Consult Reason/Comments: Trim toenails Do you want consulting provider notified?: Yes 01/09/21 08:23 Consult Physician Routine Consulting Provider: Juan Antonio Oliver Consult Reason/Comments: thrombocytopenia Do you want consulting provider notified?: Yes Primary care physician: Golden Noble Hospital Course: HISTORY OF PRESENT ILLNESS: This is an 85-year-old female patient with past history of hypertension, glaucoma, chronic kidney disease stage IIIB, chronic gout, chronic anemia with history of acute GI bleed secondary to acute ischemic colitis and gastritis. She presented to [facility] emergency [facility] due to fever that have been going on for 2-3 days. She also had cough and mild shortness of breath. She denied dysuria, no abdominal pain. There was generalized weakness and muscle aches. Temperature was 101.7, heart rate 75, blood pressure 144/65, pulse ox 90% on room air. EKG sinus rhythm with no acute ST changes. WBC 4, hemoglobin 10.5, platelet count 42. Sodium 133, potassium 4.3, chloride 102, CO2 28, BUN 21 and creatinine 1.38, blood sugar 97. Liver function tests were normal. Magnesium 1.7. C-reactive protein 15.8. LDH 455. Lactic acid 0.8. Urinalysis cloudy with nitrate positive, leukoesterase moderate, WBC 74, squamous cells 7, few WBC clumps. Many bacteria. Coronavirus PCR not detected. Chest x-ray reveals no acute cardiopulmonary process. Large hiatal hernia. Patient was placed in the observation unit and started on Rocephin, urine and blood culture obtained. 01/07: Patient is seen today in the emergency center, waiting for [facility] bed. She has been afebrile, heart rate 65, blood pressure 160/78, pulse ox 100% on room air. Repeat blood work revealed WBC 3.8, hemoglobin 10, platelet count 30. Sodium 134, potassium 4.3, chloride 104, CO2 24, BUN 23 and creatinine 1.21. Blood sugar 79. Blood culture is in progress. Urine culture in progress. Patient is followed by PT and OT as well as correctional case manager for discharge planning. 01/08: Blood cultures no growth after 24 hours 2 specimens. Urine culture is gram-negative bacilli and sensitivity not available. Patient continued on Rocephin. She is denying any new complaints. No abdominal pain. No blood in her stools. She has been afebrile, heart rate 62, blood pressure 129/64, pulse ox 97% on 2 L nasal cannula. Anticipate probable discharge to [facility] tomorrow. 01/09: Patient is feeling a lot better, she will be seen in consultation by hematology oncology due to her , an thrombocytopenia she follows up with them as an outpatient, she'll be seen by podiatry today for nail clipping, hopefully she will be able to discharge home tomorrow morning 3 PHYSICAL EXAMINATION: General: This is an 85-year-old female. She is resting on the ER stretcher and appears to be uncomfortable. No acute respiratory distress. HEENT: Head is atraumatic, normocephalic, pupils were equal round reactive to light and recommendation, extraocular muscle movement were intact, sclera nonicteric, conjunctivae were pale, mucous membranes of the mouth are somewhat dry. Neck: Supple, no JVP, normal carotid upstroke bilaterally, no lymphadenopathy. Chest: Decreased breath sounds at the bases, few rhonchi, no extremity wheezes, no chest wall tenderness, no intercostal retractions. Heart: First heart sound is normal, second heart sounds normal Abdomen: Soft, nontender, nondistended, positive bowel sounds. Extremities: There is no edema no calf tenderness DP +2 bilaterally. Neurologic examination: Patient is awake alert and oriented lert and oriented x3, cranial nerves II-12 appear grossly intact, muscle power were 5 out of 5 in upper extremities and 5 out of 5 in bilateral lower extremities, deep tendon reflexes normal bilaterally. ASSESSMENT AND PLAN: 1. Febrile illness secondary to acute urinary tract infection. 2. Hypertension and hypertensive cardiovascular disease . 3. Glaucoma. 4. History of GI bleed secondary to ask acute ischemic colitis and gastritis. 5. 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 6. 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 7. Chronic gout. 8. Chronic kidney disease stage IIIB. DISCHARGE PLAN: [facility] for subacute rehab today. Patient Condition at Discharge: Stable Plan - Discharge Summary Discharge Rx Participant: No New Discharge Prescriptions: New Ciprofloxacin HCl [Cipro] 250 mg PO BID #20 tab Continue allopurinoL [Zyloprim] 100 mg PO DAILY Carvedilol [Coreg] 12.5 mg PO BID Latanoprost Ophth [Xalatan 0.005%] 1 drop BOTH EYES HS traMADol HCL [Ultram] 50 mg PO TID PRN PRN Reason: Severe Pain Metoclopramide [Reglan] 5 mg PO HS PRN PRN Reason: GERD Metoclopramide [Reglan] 5 mg PO BID-W/MEALS PRN PRN Reason: GERD Famotidine [Pepcid] 20 mg PO DAILY Dorzolamide-Timol 2.23%/0.68% [Cosopt] 1 drop RIGHT EYE BID Discharge Medication List Carvedilol [Coreg] 12.5 mg PO BID 04/06/18 [History] allopurinoL [Zyloprim] 100 mg PO DAILY 04/06/18 [History] Latanoprost Ophth [Xalatan 0.005%] 1 drop BOTH EYES HS 04/07/18 [History] traMADol HCL [Ultram] 50 mg PO TID PRN 12/15/18 [History] Dorzolamide-Timol 2.23%/0.68% [Cosopt] 1 drop RIGHT EYE BID 01/06/21 [History] Famotidine [Pepcid] 20 mg PO DAILY 01/06/21 [History] Metoclopramide [Reglan] 5 mg PO BID-W/MEALS PRN 01/06/21 [History] Metoclopramide [Reglan] 5 mg PO HS PRN 01/06/21 [History] Ciprofloxacin HCl [Cipro] 250 mg PO BID #20 tab 01/10/21 [Rx] Follow up Appointment(s)/Referral(s): Golden Noble MD [Primary Care Provider] - 01/16/21 1:30 pm Discharge Disposition: HOME SELF-CARE
[2021-01-10 16:59] LABS: % Iron Saturation 33.81 (12.00-45.00); Iron 71 ug/dL (50-170); Total Iron Binding Capacity 210 ug/dL (228-460)
[2021-01-11 01:26] LABS: Ferritin 83.9 ng/mL (10.0-291.0); Folate, Serum 15.2 ng/mL
== END 2021-01-10 16:45 ==
LOC: EC 16:16 → 6NMEDSUR 22:58
PROVIDERS: ADMIT Internal Medicine; ATTEND Internal Medicine
DX: N39.0 Urinary tract infection, site not specified (principal); R05 Cough; R06.02 Shortness of breath; R53.1 Weakness; I13.10 Hypertensive heart and chronic kidney disease without heart failure, with stage 1 through stage 4 chronic kidney disease, or unspecified chronic kidney disease; N18.32 Chronic kidney disease, stage 3b; H40.9 Unspecified glaucoma; D46.9 Myelodysplastic syndrome, unspecified; D51.9 Vitamin B12 deficiency anemia, unspecified; Z20.822 Contact with and (suspected) exposure to COVID-19; D61.818 Other pancytopenia; D69.59 Other secondary thrombocytopenia; M1A.9XX0 Chronic gout, unspecified, without tophus (tophi); K21.9 Gastro-esophageal reflux disease without esophagitis; K29.70 Gastritis, unspecified, without bleeding; K44.9 Diaphragmatic hernia without obstruction or gangrene; K55.039 Acute (reversible) ischemia of large intestine, extent unspecified; R32 Unspecified urinary incontinence; D47.2 Monoclonal gammopathy; D75.89 Other specified diseases of blood and blood-forming organs; M19.90 Unspecified osteoarthritis, unspecified site; Z91.048 Other nonmedicinal substance allergy status; B35.1 Tinea unguium; M20.12 Hallux valgus (acquired), left foot; M20.11 Hallux valgus (acquired), right foot; M20.42 Other hammer toe(s) (acquired), left foot; M20.41 Other hammer toe(s) (acquired), right foot; I73.9 Peripheral vascular disease, unspecified; Z87.11 Personal history of peptic ulcer disease; Z87.19 Personal history of other diseases of the digestive system; Z96.1 Presence of intraocular lens; Z96.643 Presence of artificial hip joint, bilateral; Z87.891 Personal history of nicotine dependence; Z79.899 Other long term (current) drug therapy; Z79.891 Long term (current) use of opiate analgesic; Z88.1 Allergy status to other antibiotic agents; Z88.8 Allergy status to other drugs, medicaments and biological substances; Z82.49 Family history of ischemic heart disease and other diseases of the circulatory system
CPT/HCPCS: 96361 ×2; 96366 ×4; 96365; 99285; 36415; 94760; 93005; 97116; 97530; 97161; 97535; 97166; 83921; 80053 ×2; 80048 ×2; 82607; 82728 ×2; 82746; 83540; 83550; 83605; 83615 ×2; 83735; 85025 ×4; 85384; 85610 ×2; 85045; 85730; 86140; 81001; 87040; 82784 ×3; 84165; 87086; 87077; 87186; 86334; 83883; 84145; 87635 ×2; 71045; G0378 ×5; J0696 ×4